=== PATIENT | male | born 1955 | race Caucasian/White ===

== ENCOUNTER → 2019-12-04 08:42 | Outpatient (CLI) | payer MEDICARE, SELFPAY ==
--- NOTE | 2019-12-04 08:48 | CDU_ITS ---
Reason For Study: dizziness Rt. Velocities/BP Lt. Velocities/BP Prox CCA 79.9/21.3 cm/sec. Prox CCA 85.0/19.0 cm/sec. Mid CCA 64.3/14.7 cm/sec. Mid CCA 56.4/15.7 cm/sec. Dist CCA 63.0/17.3 cm/sec. Dist CCA 62.9/19.0 cm/sec. Prox ICA 36.9/14.2 cm/sec. Prox ICA 32.2/11.6 cm/sec. Mid ICA 56.1/20.3 cm/sec. Mid ICA 50.7/20.1 cm/sec. Dist ICA 90.0/33.3 cm/sec. Dist ICA 72.7/25.6 cm/sec. Rt. ICA/CCA = 1.4. Lt. ICA/CCA = 1.3. Prox ECA 79.9/21.3 cm/sec. Prox ECA 97.1/16.8 cm/sec. Rt. Vert. 46.6/13.5 cm/sec. Lt. Vert. 52.6/22.1 cm/sec. Right Extracranial There is intimal thickening but no significant atherosclerotic plaque noted in the right common carotid artery. There is intimal thickening but no significant atherosclerotic plaque noted in the right internal carotid artery. There is intimal thickening but no significant atherosclerotic plaque noted in the right external carotid artery. Antegrade flow is noted in the right vertebral artery. Left Extracranial There is intimal thickening but no significant atherosclerotic plaque noted in the left common carotid artery. There is intimal thickening but no significant atherosclerotic plaque noted in the left internal carotid artery. There is intimal thickening but no significant atherosclerotic plaque noted in the left external carotid artery. Antegrade flow is noted in the left vertebral artery. Procedure Carotid Duplex 19814. The exam was diagnostic. Interpretation Summary No significant atherosclerotic plaque or stenosis noted in the internal carotid arteries bilaterally. Flow within the vertebral arteries is antegrade bilaterally. Ordering Physician: Tanvir Borrego Performed By: Davon Collins RVT
== END ==
PROVIDERS: Family Provider Family Medicine; PCP Family Medicine; Referring Provider Family Medicine; Visit Provider Family Medicine
DX: R42 Dizziness and giddiness (principal)
CPT/HCPCS: 93880

== ENCOUNTER 2023-01-10 11:42 | Observation (INO) | payer MEDICARE, OTHER, SELFPAY ==
--- NOTE | 2022-12-30 08:52 | EKG12_ITS ---
Test Reason : PRE OP Blood Pressure : / mmHG Vent. Rate : 070 BPM Atrial Rate : 070 BPM P-R Int : 190 ms QRS Dur : 094 ms QT Int : 392 ms P-R-T Axes : 028 -23 048 degrees QTc Int : 423 ms Sinus rhythm with Premature atrial complexes Septal infarct , age undetermined Abnormal ECG Confirmed by MEHUL ALVARADO, TONY ([id number]), avid editor ALOK CORONA ([id number]) on 12/31/2022 9:02:25 AM Referred By: Chuck Trejo Confirmed By:SHILPI CARVER MD
[2022-12-30 10:01] LABS: Absolute Lymphocyte Count 1.44 X10^3/uL (0.83-4.51); Absolute Neutrophil Count 4.3 X10^3/uL (2.0-7.7); Basophil# 0.03 X10^3/uL; Basophil% 0.5 % (0-1); Eosinophil# 0.28 X10^3/uL; Eosinophils% 4.2 % (0-5); Hematocrit 49.1 % (40-54); Hemoglobin 15.9 g/dL (13.0-16.5); Lymphocyte # 1.44 X10^3/ul (0.83-4.51); Lymphocyte % 21.7 % (19-41); Mean Corp Hgb Conc 32.4 g/dL (32-36); Mean Corpuscular Hgb 30.3 pg (27.0-32.0); Mean Corpuscular Volume 93.7 fL (80-94); Mean Platelet Vol. 8.8 fl (6.2-12.0); Monocyte# 0.62 X10^3/uL; Monocyte% 9.3 % (0-10); NRBC Flagged by Analyzer 0 % (0-5); Neutrophil # 4.25 X10^3/uL (2.7-7.7); Platelet Count 322 K/mm3 (150-450); RBC Distribution Width CV 13.2 % (11.6-14.6); RBC Distribution Width SD 45.9 fl (35.1-43.9); Red Blood Count 5.24 M/mm3 (4.6-6.2); White Blood Count 6.6 K/mm3 (4.4-11.0)
[2022-12-30 10:55] LABS: Anion Gap 9 (5-15); BUN 22 mg/dL (7-18); BUN/Creat Ratio 21.2 RATIO (10-20); Chloride 106 mmol/L (98-107); Creatinine, Serum 1.04 mg/dL (0.70-1.30); EST Glomerular Filtration Rate 75 mL/min (>60); Est Glom Filt Rate - Afr Amer 91 mL/min (>60); Glucose 148 mg/dL (74-106); Magnesium 2.3 mg/dL (1.6-2.6); PSA,Total - Annual Screen 3.36 ng/mL (0.00-4.00); Potassium 4.1 mmol/L (3.5-5.1); Sodium Level 140 mmol/L (136-145); Thyroid Stim Hormone (TSH) 2.23 uIU/mL (0.358-3.74)
[2022-12-30 10:59] LABS: HIV - WCH Non-Reactive (Nonreactive); Hepatitis B Surface Antibody Non-Reactive; Hepatitis C Antibody Non-Reactive (Nonreactive)
[2022-12-31 21:24] LABS: Hepatitis A AB, Total Negative (Negative)
--- NOTE | 2023-01-07 09:48 | PCM.HP.BLA ---
History and Physical Addendum MR#: [id number] Acct: [id number] Name:? CANDIS DOMÍNGUEZ Jr. Rep #: [id number] : 1955 ? ? Provider: Dr. Chuck Trejo DO Age/Sex:? 67/M ? ? Location: [facility] [place] Status: Signed Intake Vital Signs ? 11/10/1510:59 12/02/2307:28 Height 5 ft 5 in 5 ft 5 in Weight: ? 216 lb 6 oz BMI ? 36.0 Intake Visit Reasons:?LUMBER SPINE Is patient in pain?: Yes Pain scale (1-10): 10 Allergies No Known Allergies Allergy (Verified 12/02/22 08:28) Medications aspirin 81 mg tablet,delayed release (Adult Low Dose Aspirin) 81 mg PO DAILY 11/05/15 [History Confirmed 12/02/22] atorvastatin 10 mg tablet 20 mg PO QHS 11/05/15 [History Confirmed 12/02/22] acetaminophen 500 mg tablet (Tylenol Extra Strength) 500 mg PO Q6H PRN 12/02/22 [History Confirmed 12/02/22] amlodipine 5 mg tablet 5 mg PO DAILY 12/02/22 [History Confirmed 12/02/22] ibuprofen 400 mg tablet 400 mg PO Q8H 12/02/22 [History Confirmed 12/02/22] levothyroxine 200 mcg capsule 200 mcg PO DAILY 12/02/22 [History Confirmed 12/02/22] lisinopril 5 mg tablet 5 mg PO DAILY 12/02/22 [History Confirmed 12/02/22] omeprazole 40 mg capsule,delayed release 40 mg PO DAILY 12/02/22 [History Confirmed 12/02/22] PFSH Medical History?(Updated 12/02/22 @ 09:[address] Chuck Trejo DO) Melanoma Surgical History?(Updated 12/02/22 @ 08:48 by Wendy Torres) Hx of knee surgery Family History?(Updated 12/02/22 @ 08:49 by Wendy Torres) Father CVA (cerebral vascular accident)Other Arthritis Diabetes Social History Smoking Status:? Never smoker alcohol intake:? never HPI LUMBER SPINE Details: Parts of this documentation were recorded by a scribe, this documentation accurately reflects the service provided and the decisions made by me, Dr. Chuck Trejo DO 12/02/22 0825. CANDIS DOMÍNGUEZ is a 67 year old M here today for lower back pain that radiates down his left leg. Denies any known injury. States that he has been been dealing with the pain for 8-10 years that has progressively gotten worse. Denies any previous surgery on his back. States that morning are the worst for his pain. States that within the last month it has gotten worse and worse. Notes that there isn't anything specific that increases his pain but his pain is constant and sometimes it fades during the day but then comes right back. Pt. did bring an MRI disc with him as well today. Denies using ice or heat. States that he takes Ibuprofen and Tylenol for the pain which does help a little bit. Denies any previous injections in his back. Pt. has done PT which was 4 years ago which did help a little bit but doesn't help now and did some HEP with that as well which helped a little then but not now. Denies any bowel or bladder dysfunction. Mr. Domínguez is a pleasant gentleman who presents in the company of his daughter.? He has had the pain in the left quad for a long time however a month or so ago it started getting much much worse.? Now the pain has become intractable.? He denies any bowel or bladder dysfunction.? He denies history of unexplained weight loss night fever sweats or chills. On examination he can stand on his toes and he can stand on his heels with difficulty.? Forward bending increases the pain instead as does extension.? He has atrophy of the left quad as compared to the right.? The left patellar reflex is absent the right 1 is but barely perceptible.? He has weakness of the quads on the left as compared to the right.? He has no long tract signs.? Clonus is absent Babinski's are downgoing. I reviewed his MRI scan demonstrates that he has a very large L2-3 disc more to the left side that goes all the way down to nearly L3-4.? In addition he has smaller herniation all the way across at L3-4.? And he has yet another 1 at L1 to.? His main problem however is undoubtedly the large L2-3 herniation.? I suspect we will we will be able to ignore the other 2 as they are not a major problem.? He is obviously got degeneration throughout his lumbar spine with degenerative disc disease of every single level. Plain x-rays demonstrate that he has degenerative disc disease at every single level in his lumbar spine.? I also x-rayed his left hip which demonstrated only very mild degenerative changes.? We will schedule him for lumbar laminectomy L2-3 on the left side I will have to remove the top of the lamina of L3 also.? I will see him again at preop. Coding Level of Care Code Off vis,new,level 3 Diagnoses HNP (herniated nucleus pulposus), lumbar? M51.26 Time Spent (min) 35 Assessment and Plan Assessment and Plan (1) HNP (herniated nucleus pulposus), lumbar:
[2023-01-10] VITALS (14 sets, daily range): BP systolic 94–124; BP diastolic 48–79; PULSE 54–85; RESP 14–16; TEMP 35.5–37.2; O2SAT 90–97; BMI 35.6; BMI 37.6
[2023-01-10] MEDS: Lactated Ringers 1,000 ML 15 ML IV ×3 (06:24→11:30)
[2023-01-10] MEDS: Acetaminophen 500 MG Tablet 1000 MG PO (06:25)
[2023-01-10 06:26] LABS: Bedside Glucose 186 mg/dL (74-106)
--- NOTE | 2023-01-10 07:30 | DISC_PTH ---
PATIENT: CANDIS JIMENEZ Jr. LOC: MS3 U#:[id number] AGE/SX: 67/M ROOM: MO318 RE01/10/[address]: Dr. Chuck Trejo DO : 1955 BED: 1 DIS: 01/11/2023 SPEC #: [id number] RECD: 01/10/23 13:41 STATUS: SVETLANA REDc #: [id number] JULIO: 01/10/23 07:[address]: Chuck Trejo DEPT: SURGICAL PATHOLOGY RECD BY: Nina Valverde ENTERED: 01/11/23 08:34 SP TYPE: DISC OTHR DR: MD Dr. Alessandro Philip MD Tissues: Intervertebral disc, NOS Procedures: Surgery Specimen Level III HEADER OPERATION: ERAS, lumbar laminectomy L2-3 PRE-OP DIAGNOSIS: Herniated nucleus pulposus TISSUE SUBMITTED: L2-3 disc MICROSCOPIC DIAGNOSIS L2-3 disc, laminectomy: Pieces of fibrocartilaginous tissue with reactive changes. PEACE:lanie 01/12/2023 MICROSCOPIC DESCRIPTION Slides are reviewed. GROSS DESCRIPTION Received in fixative is one container labeled with the patient's name and designated L2-3 disc. The specimen consists of two irregular fragments of pink-lomeli soft tissue that in aggregate measure 1.0 x 0.3 x 0.2 cm. The specimen is totally submitted in one cassette. / AM:lanie 01/11/2023 TC:5 CPT: 30093
[2023-01-10] MEDS: Cefazolin 2 GM in 0.9% Normal Saline 100 ML IV (08:20)
[2023-01-10] MEDS: THROMBIN (RECOMBINANT) 20,000 UNIT VIAL 20000 UNIT TOPICAL (08:40)
--- NOTE | 2023-01-10 08:45 | RAD_ITS ---
STUDY: X-RAY - LUMBAR SPINE REASON FOR EXAM: Male, 67 years old. LAMINECTOMY L2-3, LEFT TECHNIQUE: 1 view(s) of the lumbar spine were obtained. COMPARISON: None FINDINGS: The localization instrument is seen overlying the L2-L3 disc space level. RAD/Spine 1 View Any Level IMPRESSION: The localization instrument is seen overlying the L2-L3 disc space level. Electronically Signed: Antonio Landrum MD at 10:05 EST ,
--- NOTE | 2023-01-10 11:52 | OP.PCM_ITS ---
Report of Operation Description of Surgical Findings:: Preoperative diagnosis: Herniated disc L2-3 with severe left L3 radiculopathy intractable pain neurological deficit Postoperative diagnosis: The same Procedure: Lumbar laminectomy discectomy L2-3 on the left Surgeon: Dr. Trejo Communications Strategist: Nhan GARCIA Anesthesia: General endotracheal by [facility] Estimated blood loss: Less than 50 cc Drains: None Complications: None Procedure: Patient was taken to the OR where he was placed under general endotr acheal anesthesia. A Nagel catheter was inserted. Neuro monitoring placed their leads on the patient. The patient was then placed in the prone position on the Kranthi frame. After appropriate positioning with care to protect his bony prominences his genitalia the brachial plexus bilaterally and the ulnar nerves of both elbows and the cervical spine and facial features the back was prepped and draped standard fashion I then made a longitudinal incision centered over what I thought would be L2-3. I then elevated the paravertebral muscles off the lamina of L2 and the lamina of L3 and took an intraoperative x-ray with a marker in place to confirm that we were indeed at L2-3. This was also confirmed by the radiologist. The paravertebrals were elevated at over the facet of L2-3 a Valery retractor was then put in place I then removed all the soft tissues off of the ligamentum flavum between the 2 and is L2 and L3 and release ligamentum flavum off the underside of the lamina of L2. The laminectomy was carried out with 45 degree Kerrison rongeurs. I then released the ligamentum flavum off the underside of the top of the L3 lamina as we would need to do that to get to the disc because the disc went so far down. The laminectomy was carried out with 45 degree Kerrison rongeurs I then remove the ligamentum flavum in retrograde fashion with a 45 degree Kerrison rongeurs and open the lateral recess by doing a medial facetectomy at the top of the L3 facet. I removed the medial portion of the L2 facet with an osteotome. Removed all ligamentum flavum that I could. Then began the long process of retracting the dura note that this disc herniation occurred about 5 years ago has had symptoms for that long. I knew that it would be difficult case and that he would have adhesions then as expected he had strong adhesions from the disc that was of ligamentous and note that the disc itself at L2-3 was quite calcified. I worked diligently for a very long time getting the adhesions to slowly release until I finally was able to observe the L3 nerve. I cut the posterior longitudinal ligament so that I could get to the disc and removed quite a few pieces of the disc material these were all small however but this did decompress the base of the nerve root. Use an osteotome to make a hole in the posterior calcified disc of L2-3 there was no more disc there to be had. Did find the disc space however. This finally decompressed the L3 nerve root. Checked with hockey-stick both anterior and posterior went out the foramen without any difficulty at all. Bleeding was controlled with bipolar cautery and thrombin- soaked Gelfoam repeatedly. Also in the course of the case we thoroughly irrigated every 10 to 50 minutes in the course of the case to prevent infection. We had excellent hemostasis by the end of the case we put our amnionic membrane directly over the dura to prevent adhesions in the future Gelfoam was placed over the top of that. I then closed the lumbar fascia using [id number] suture with #1 Vicryl followed by closure of subcutaneous tissues with 0 Vicryl and 2-0 Vicryl in layers in interrupted fashion and the skin was approximated using skin clips sterile dressing was then applied. The patient was then recovered in the OR moved to his hospital bed and taken to recovery in satisfactory condition. The end of operative summary on Oseas Dmoínguez. This is Dr. Trejo dictating.
--- NOTE | 2023-01-10 14:30 | PCM.HP.STD ---
HPI - General General Date of Admission: 01/10/23 Date of Service: 01/10/23 Chief Complaint: Post-op medical managment HPI Narrative CANDIS JIMENEZ, is a 67 M who presents PFSH Medical History Anxiety Arthritis Back pain Cancer CPAP (continuous positive airway pressure) dependence Depression Dietary restriction Gastric reflux High cholesterol History of irregular heartbeat History of pain when walking History of stress test Hypertension Leg cramps Melanoma Shortness of breath on exertion Sleep apnea Thyroid disease Wears glasses Home Medications atorvastatin 10 mg tablet 20 mg PO DAILY 11/05/15 [History Last Taken Unknown] acetaminophen 500 mg tablet (Tylenol Extra Strength) 500 mg PO Q6H PRN Pain 12/02/22 [History Last Taken Unknown] amlodipine 5 mg tablet 5 mg PO DAILY 12/02/22 [History Last Taken 01/10/23] ibuprofen 400 mg tablet 400 mg PO Q6H 12/02/22 [History Last Taken Unknown] levothyroxine 200 mcg capsule 400 mcg PO SA 12/02/22 [History Last Taken Unknown] lisinopril 5 mg tablet 5 mg PO DAILY 12/02/22 [History Last Taken Unknown] omeprazole 40 mg capsule,delayed release 40 mg PO DAILY 12/02/22 [History Last Taken Unknown] Allergy/AdvReac Type Severity Reaction Status Date / Time No Known Allergies Allergy Verified 01/10/23 05:57 Family History Father CVA (cerebral vascular accident) Other Arthritis Diabetes Surgical History Hx of knee surgery Hx of ventral hernia repair Social History Smoking Status: Never smoker alcohol intake: never Vital Signs Vital Signs Vital Signs: 01/10/23 06:00 01/10/23 06:00 01/10/23 11:49 Temperature 99.0 F 96 F L Temperature Source Temporal Temporal Pulse Rate 54 L 54 L Pulse Strength Respiratory Rate 16 16 Respiratory Pattern Normal Normal Blood Pressure 121/64 H 96/65 Blood Pressure Mean 83 75 Blood Pressure Source Monitor Monitor Blood Pressure Position Left Lateral Semi-Fowlers Blood Pressure Location Right Arm Left Forearm Baseline BP 121/64 Pulse Ox 92 95 Oxygen Delivery Method Room Air Nasal Cannula Oxygen Flow Rate (L/min) 4 01/10/23 12:00 01/10/23 12:15 01/10/23 12:30 Temperature Temperature Source Pulse Rate 55 L 56 L 54 L Pulse Strength Respiratory Rate 16 16 16 Respiratory Pattern Blood Pressure 94/48 L 108/78 102/72 Blood Pressure Mean 63 88 82 Blood Pressure Source Monitor Monitor Monitor Blood Pressure Position Semi-Fowlers Semi-Fowlers Semi-Fowlers Blood Pressure Location Left Arm Left Arm Left Arm Baseline BP 121/64 121/64 121/64 Pulse Ox 95 93 93 Oxygen Delivery Method Nasal Cannula Nasal Cannula Nasal Cannula Oxygen Flow Rate (L/min) 4 4 4 01/10/23 12:45 01/10/23 13:00 01/10/23 13:06 Temperature Temperature Source Pulse Rate 58 L 59 L Pulse Strength Normal (2+) Respiratory Rate 16 16 Respiratory Pattern Blood Pressure 113/79 105/71 Blood Pressure Mean 90 82 Blood Pressure Source Monitor Monitor Blood Pressure Position Semi-Fowlers Semi-Fowlers Blood Pressure Location Left Arm Left Arm Baseline BP 121/64 121/64 Pulse Ox 93 92 Oxygen Delivery Method Nasal Cannula Nasal Cannula Oxygen Flow Rate (L/min) 4 4 01/10/23 13:15 01/10/23 13:30 01/10/23 13:45 Temperature 96.9 F L Temperature Source Temporal Pulse Rate 61 59 L 61 Pulse Strength Respiratory Rate 16 16 16 Respiratory Pattern Blood Pressure 99/65 99/65 107/68 Blood Pressure Mean 76 76 81 Blood Pressure Source Monitor Monitor Monitor Blood Pressure Position Semi-Fowlers Semi-Fowlers Semi-Fowlers Blood Pressure Location Left Arm Left Arm Left Arm Baseline BP 121/64 121/64 121/64 Pulse Ox 92 91 93 Oxygen Delivery Method Simple Mask Simple Mask Simple Mask Oxygen Flow Rate (L/min) 6 6 6 Weight Weight: 97 kg Body Mass Index (BMI) 35.6 Results Lab / Micro Data Result Diagrams: 12/30/22 09:02 12/30/22 09:02 Labs: Laboratory Results - last 24 hr 01/10/23 06:04: POC Glucose 186 H Radiology Impression Spine X-Ray 01/10/23 08:45 IMPRESSION: The localization instrument is seen overlying the L2-L3 disc space level. Electronically Signed: Antonio Landrum MD at 10:05 EST , Assessment & Plan Assessment/Plan PLAN: Plan 1. POD #0 2. Hypertension 3. Hyperlipidemia 4. Hypothyroidism 5. GERD, continue on PPI Charges/Coding Visit Charges Inpatient E&M: 01112 Init Hosp L3
--- NOTE | 2023-01-10 15:04 | PN.HOSP_ITS ---
Reason for Visit Reason for Visit: Diagnoses Encounter for other preprocedural examination (01/10/23) Subjective Subjective Consult for postop medical management: 67-year-old male with past medical history of STEVE, hypertension, hyperlipidemia, GERD, hypothyroidism who comes in for elective left lumbar laminectomy/discectomy L2-L3. He has been complaining of lumbar radiculopathy ongoing for 8 to 10 years. Conservative treatment with ibuprofen/Tylenol and physical therapy was not helping. Patient was seen in the immediate postop. He is on 6 L of oxygen. His oxygen sats were staying around 89 to 90%. He denied any use of home oxygen. Denied any chest pain or dizziness or palpitations or fever or chills. Objective Data Objective Data Vital Signs: Vital Signs Temp Pulse Resp BP Pulse Ox O2 Del Method O2 Flow Rate 98.2 F 57 L 16 122/79 H 90 Nasal Cannula 4 01/10/23 14:41 01/10/23 14:41 01/10/23 14:41 01/10/23 14:41 01/10/23 14:41 01/10/23 14:41 01/10/23 14:41 Oxygen Flow Rate (L/min) 4 Oxygen Delivery Method Nasal Cannula Weight: 102.603 kg Body Mass Index (BMI) 37.6 Intake & Output: Intake and Output for Last 24 Hours 01/08/23 01/09/23 01/10/23 23:59 23:59 23:59 Intake Total 2110 / 2110 Output Total 250 / 250 Balance 1860 / 1860 Lab / Micro Data Result Diagrams: 12/30/22 09:02 12/30/22 09:02 Labs: Laboratory Results - last 24 hr 01/10/23 06:04: POC Glucose 186 H Micro: Microbiology 12/30/22 09:02 Swab (Method) Nasal Screen MRSA/MSSA - Final Radiography Diagnostic Testing: Radiology Impression Spine X-Ray 01/10/23 08:45 IMPRESSION: The localization instrument is seen overlying the L2-L3 disc space level. Electronically Signed: Antonio Landrum MD at 10:05 EST , Physical Exam Narrative General: Alert, Oriented x3, Cooperative, on 4 L of oxygen HEENT: Atraumatic, PERRLA, EOMI, Normocephalic Oral: Moist Mucosa Neck: Supple Lungs: Normal air movement, Diminished Cardiovascular: Regular rate, Regular Rhythm, Normal S1, Normal S2, No murmurs Abdomen: Bowel Sounds Present, Soft, Non Tender, Non-Distended, No Hepato- splenomegaly Extremities: No edema Skin: No rashes Neurological: Cranial nerves II-XII grossly intact, Neuro grossly intact Psych/Mental Status: Normal Affect, Appropriate pleasant Assessment & Plan Assessment/Plan (1) Hypoxia: PLAN: Plan 1.POD #0 status post left L2 to?L3 laminectomy, Patient's pain is fairly controlled, continue current pain management PT/OT to evaluate and treat 2. Acute hypoxia likely related to atelectasis Patient is currently on 4 L of oxygen Continue to encourage use of incentive spirometer 3. Hypertension, controlled, continue on amlodipine, lisinopril 4. Hyperlipidemia, continue atorvastatin 5. Hypothyroidism, continue on synthroid 6. DVT prophylaxis?orthopedic surgery per orthopedic surgery -SCDs Charges/Coding Visit Charges Office Visits / Consults: 30684 OP Consult L5
[2023-01-10] MEDS: Cefazolin 1 GM/50 ML BAG IV (16:35)
--- NOTE | 2023-01-10 20:10 | CPS ---
home CPAP with 4Lpm bleed in
[2023-01-10] MEDS: Lactated Ringers 1,000 ML 100 ML IV (20:12)
[2023-01-10] MEDS: Atorvastatin Calcium 20 MG Tablet PO (20:12)
[2023-01-11] VITALS (8 sets, daily range): BP systolic 107–135; BP diastolic 51–87; PULSE 60–77; RESP 15–18; TEMP 36.7–37.1; O2SAT 93–97
[2023-01-11] MEDS: Cefazolin 1 GM/50 ML BAG IV (00:37)
[2023-01-11] MEDS: Lactated Ringers 1,000 ML 100 ML IV (05:32)
[2023-01-11] MEDS: 0.9% Saline Lock 10 ML Syringe IV (05:36)
[2023-01-11] MEDS: Morphine 4 MG/ML Syringe IV (05:36)
--- NOTE | 2023-01-11 08:46 | PCM.PN.HOSP ---
Reason for Visit Reason for Visit: Diagnoses Hypoxemia (01/10/23) Encounter for other preprocedural examination (01/10/23) Subjective Subjective Follow-up for lumbar laminectomy. Objective Data Objective Data Vital Signs: Vital Signs Temp Pulse Resp BP Pulse Ox O2 Del Method O2 Flow Rate 98.8 F 66 15 131/87 H 96 Nasal Cannula 3 01/11/23 06:20 01/11/23 06:20 01/11/23 06:20 01/11/23 06:20 01/11/23 07:01 01/11/23 07:01 01/11/23 07:01 Oxygen Flow Rate (L/min) 3 Oxygen Delivery Method Nasal Cannula Weight: 226 lb 3.2 oz Body Mass Index (BMI) 37.6 Intake & Output: Intake and Output for Last 24 Hours 01/09/23 01/10/23 01/11/23 23:59 23:59 23:59 Intake Total 2837 / 3437 2128.34 / 2128.34 Output Total 550 / 1400 1650 / 1650 Balance 2287 / 2037 478.34 / 478.34 Lab / Micro Data Result Diagrams: 12/30/22 09:02 12/30/22 09:02 Micro: Microbiology 12/30/22 09:02 Swab (Method) Nasal Screen MRSA/MSSA - Final Radiography Diagnostic Testing: Radiology Impression Spine X-Ray 01/10/23 08:45 IMPRESSION: The localization instrument is seen overlying the L2-L3 disc space level. Electronically Signed: Antonio Landrum MD at 10:05 EST , Physical Exam Narrative Seen and examined. Patient states does not have lumbar back pain. His lower back pain, numbness and leg pain has resolved. He feels very happy. Patient walking along the hallway. Physical exam General: Alert, Oriented x3, Cooperative HEENT: Atraumatic, PERRLA, EOMI, Normocephalic Oral: Oral mucosa moist. No Gingival or Mucosal Lesions/ Ulcerations Neck: Supple, No JVD, Negative Carotid Bruits Lungs: Air entry diminished in bilateral lung bases. No crepitation/rhonchi Cardiovascular: Regular rate, Regular Rhythm, Normal S1, Normal S2, No murmurs Abdomen: Bowel Sounds Present, Soft, Non Tender, Non-Distended : No renal angle tenderness. No suprapubic tenderness. Extremities: No edema, Capillary Refill Less than 3 Seconds Skin: No rashes, No breakdown Musculoskeletal/spine: Surgical dressing dry over lumbar spine. No drain. No acute tenderness or swelling/hematoma. ROM acceptable at lumbar spine, patient sitting up. Neurological: Cranial nerves II-XII grossly intact, DTR 2+/4 and Symmetrical, Neuro grossly intact Psych/Mental Status: Normal Affect, Appropriate. Assessment & Plan Assessment/Plan (1) Hypoxia: PLAN: Plan This is a 14-year-old gentleman admitted for elective lumbar laminectomy surgery. 1. Herniated disc L2-3 with severe left L3 radiculopathy complicated with intractable radicular pain and neurological deficit with numbness: Postop day 1. Patient had lumbar laminectomy and discectomy L2-3 on the left on 01/10/2023. Discussed with Dr. Trejo. Patient is comfortable standing up and walking along the hallway. Patient is getting discharged. Pain is well controlled. Patient has follow-up with Dr. Trejo. 2. Acute hypoxia likely related to atelectasis: Resolved. Patient was on 4 L of oxygen. No hypoxia or tachypnea. No pneumonia. Encouraged to continue incentive spirometry. 3. Hypertension, controlled, continue on amlodipine, lisinopril 4. Hyperlipidemia, continue atorvastatin 5. Hypothyroidism, continue on synthroid 6. DVT prophylaxis?orthopedic surgery per orthopedic surgery -SCDs Hospitalist team will sign off. Charges/Coding Visit Charges Inpatient E&M: 96895 Subs Hosp L2
--- NOTE | 2023-01-11 09:50 | CASEMGMT ---
LAUREN MANZO DC Planning Assessment: Face to face for initial transition planing and care coordination. Pt alert, sitting up in chair, and oriented x4. LAUREN MANZO introduced self and role at [facility], pt expressed understanding and is agreeable to participating in assessment. Care providers, pharmacy, and demographics verified. Admitting Dx: Lumbar Laminectomy PCP: [facility] Specialists: Neil Rudolph Pharmacy: [facility] retail Insurance: MCR A/B and a supplement with prescription coverage Living Will/HPOA: yes, yes-HPOA LNOK: -Hanna Living Arrangements: Pt lives with his , daughter, DONA, and grandkids in a three story home with a first floor set-up with two steps to enter. Pt states he is independent with all ADLs and family is able to assist him if needed. [place] and assists with the animal care. Transportation: pt drives and family is able to assist as needed DME: walker available HHC/SNF: denies any previous Plan: return home with the support of his . Pt denies any discharge needs or concerns at this time and states he is feeling a lot better than prior to surgery with his pain relieved. Will continue to follow and assist with any dc needs as identified. Rut Marcum RN CM
[2023-01-11] MEDS: Pantoprazole Sodium 40 MG Tablet PO (11:27)
[2023-01-11] MEDS: amLODIPine 5 MG Tablet PO (11:27)
[2023-01-11] MEDS: Lisinopril 5 MG Tablet PO (11:27)
[2023-01-11] MEDS: oxyCODONE 5 MG Tablet PO (11:29)
--- NOTE | 2023-01-11 13:32 | DCINST_ITS ---
Discharge Instructions Activity May shower in (days): 5 May resume sexual activity in: 4-6 weeks Weight Bearing Status: Full weight bearing Lifting Restrictions: 15# Follow Up Care Test Results: Test results from this visit will be discussed in further detail at your follow- up appointment, if applicable. Discharge Plan Admission Admit Date/Time: 01/10/23 11:42 Primary Reason for Your Visit: back surgery Attending Provider: Chuck Trejo Primary Care Provider: Tanvir Borrego Consulting Providers: Alessandro Caceres Discharge Orders/Prescriptions Prescriptions: No Action omeprazole 40 mg capsule,delayed release(DR/EC) 40 mg PO DAILY amlodipine 5 mg tablet 5 mg PO DAILY lisinopril 5 mg tablet 5 mg PO DAILY levothyroxine 200 mcg capsule 400 mcg PO SA ibuprofen 400 mg tablet 400 mg PO Q6H acetaminophen [Tylenol Extra Strength] 500 mg tablet 500 mg PO Q6H PRN (Reason: Pain) atorvastatin 10 MG tablet 20 mg PO DAILY Referrals / Follow Up: Tanvir Borrego MD [Primary Care Provider] - Disposition Disposition (needs filled in before D/C Order can be placed): Home, Self Care
--- NOTE | 2023-01-11 13:34 | PCM.DC.SUM ---
Providers Date of Admission: 01/10/23 Primary Care Physician: Dr. Tanvir Borrego MD Attending Physician: Postop day #1. Patient is doing quite well. He has been walking the halls with his walker although he states he does not really needed. His left thigh pain is completely gone. He is extremely pleased about that. Neurologically he is intact in both lower extremities. His dressing is dry. He was given postop protocol regarding his activities. He was told that in 4 days the dressing can be removed in 5 days he can start showering. He was in the company of his when I told him this. Protocol of course calls for him to be able to urinate prior to his discharge. I will give him oxycodone 5/325 for pain. He already has an appointment to see him in the office in a couple of weeks. This is the end of discharge summary on Oseas Domínguez. This is Dr. Trejo dictating. Consultations 01/10/23 12:12 Consult: Hospitalist Routine Consulting Provider: Vanessa Reoblledo Reason for Consult: Medical Management EMERGENT Consult: No MD Notified: Yes Date Notified: 01/10/23 Time Notified: 14:28 Method of Notification: Text Reason For Visit: LAMINECTOMY, LUMBAR, L2-3 LEFT Diagnosis Discharge Diagnosis (1) Hypoxia: Status: Acute Code(s): R09.02 - Hypoxemia Medications at Discharge Home Medications atorvastatin 10 mg tablet 20 mg PO DAILY 11/05/15 acetaminophen 500 mg tablet (Tylenol Extra Strength) 500 mg PO Q6H PRN Pain 12/02/22 amlodipine 5 mg tablet 5 mg PO DAILY 12/02/22 ibuprofen 400 mg tablet 400 mg PO Q6H 12/02/22 levothyroxine 200 mcg capsule 400 mcg PO SA 12/02/22 lisinopril 5 mg tablet 5 mg PO DAILY 12/02/22 omeprazole 40 mg capsule,delayed release 40 mg PO DAILY 12/02/22 Weight / BMI Weight Weight: 226 lb 3.2 oz Body Mass Index (BMI) 37.6 ABG / Lab / Microbiology Data Result Diagrams: 12/30/22 09:02 12/30/22 09:02 Microbiology: Microbiology 12/30/22 09:02 Swab (Method) Nasal Screen MRSA/MSSA - Final D/C Instructions May shower in (days): 5 May resume sexual activity in: 4-6 weeks Weight Bearing Status: Full weight bearing Meaningful Use Info Meaningful Use Diagnoses (Choose all that apply): None applicable Discharge Plan Admission Admit Date/Time: 01/10/23 11:42 Primary Reason for Your Visit: back surgery Attending Provider: Chuck Trejo Primary Care Provider: Tanvir Borrego Consulting Providers: Alessandro Caceres Discharge Orders/Prescriptions Prescriptions: No Action omeprazole 40 mg capsule,delayed release(DR/EC) 40 mg PO DAILY amlodipine 5 mg tablet 5 mg PO DAILY lisinopril 5 mg tablet 5 mg PO DAILY levothyroxine 200 mcg capsule 400 mcg PO SA ibuprofen 400 mg tablet 400 mg PO Q6H acetaminophen [Tylenol Extra Strength] 500 mg tablet 500 mg PO Q6H PRN (Reason: Pain) atorvastatin 10 MG tablet 20 mg PO DAILY Referrals / Follow Up: Tanvir Borrego MD [Primary Care Provider] - Disposition Disposition (needs filled in before D/C Order can be placed): Home, Self Care
--- NOTE | 2023-01-11 13:43 | CASEMGMT ---
LAUREN MANZO NOTE: Intro role of CM to patient and [facility] form explained re: Observation status for treatment of lumbar laminectomy.? Explained hospitalization will be paid per?his insurance policy for Outpatient billing?and condition will continue to be evaluated for Inpt necessity. Also let pt know that [facility] sends paper in the billing packet with their phone number if questions arise. Discussed Pharmacy section of [facility] form and self administered medication guideline.? Pt verbalizes understanding and does not have further questions. ?Form signed, copy made and placed in chart, and original given to pt. Rin SQUIRES RN CM
== END 2023-01-11 14:56 | disposition home or self-care (01) ==
LOC: MS3 17:52 → SDC 01-11 09:41
PROVIDERS: Admitting Provider Orthopaedic Surgery; PCP Family Medicine; Referring Provider Orthopaedic Surgery; Visit Provider Orthopaedic Surgery
PROC: (CPT 63030; principal; 2023-01-10 07:00)
DX: M51.16 Intervertebral disc disorders with radiculopathy, lumbar region (principal); I10 Essential (primary) hypertension; E78.00 Pure hypercholesterolemia, unspecified; E03.9 Hypothyroidism, unspecified; R09.02 Hypoxemia; G47.33 Obstructive sleep apnea (adult) (pediatric); Z79.899 Other long term (current) drug therapy; Z79.890 Hormone replacement therapy; Z79.82 Long term (current) use of aspirin; K21.9 Gastro-esophageal reflux disease without esophagitis; Z85.820 Personal history of malignant melanoma of skin; I49.1 Atrial premature depolarization; R94.31 Abnormal electrocardiogram [ECG] [EKG]
CPT/HCPCS: 63030; 00630; 72020; 80048; 82962; 83735; 84153; 84443; 85025; 86703; 86706; 86708; 86803; 87081; 88304; 93005; 94668; 94762; 96361; 96365; 96366; 96375; 97162; 99221; 99252; J7120; A4216; G0103; G0378; G0463; J2405

== ENCOUNTER → 2023-01-18 | Outpatient (CLI) | payer MEDICARE, OTHER, SELFPAY ==
--- NOTE | 2023-01-18 14:30 | VDLE_ITS ---
Reason For Study: pain RIGHT LEFT CFV is compressible, spontaneous, phasic, GSV is normal. competent and demonstrates normal CFV is compressible, spontaneous, phasic, augmentation. competent, and demonstrates normal Procedure augmentation. This is a venous duplex using B-mode, color FV is compressible, spontaneous, phasic, flow and spectral Doppler. competent and demonstrates normal Exam performed in department. augmentation. The exam was abbreviated due to the COVID 19 POP V is compressible, spontaneous, phasic, protocol. competent and demonstrates normal The exam was diagnostic. augmentation. A preliminary report was called and/or faxed LT PerV is compressible. to Dr. Borrego. T/P Trunk, PTV, and Gastroc V are dilated and noncompressible. VL/Venous Duplex US, Unilateral Interpretation Summary Acute deep vein thrombosis is noted in the left tibio-peroneal trunk. Acute yessi p vein thrombosis is noted in the left posterior tibial vein. Acute deep vein thrombosis is noted in the left gastrocnemius vein. The remainder of the left lower extremity deep venous syste m is patent and compressible. Valvular competence appears intact within the proximal deep venou s system on the left . The left great saphenous vein appears patent and compressible segmentall y. Ordering Physician: Tanvir Borrego Performed By: Davon Collins RVT
== END | disposition home or self-care (01) ==
LOC: CVS 14:25
PROVIDERS: PCP Family Medicine; Visit Provider Family Medicine
DX: M79.605 Pain in left leg (principal)
CPT/HCPCS: 93971

== ENCOUNTER → 2024-01-26 | Outpatient (CLI) | payer MEDICARE, OTHER, SELFPAY ==
--- NOTE | 2024-01-26 10:53 | RAD_ITS ---
STUDY: X-RAY - RIGHT KNEE REASON FOR EXAM: Male, 68 years old. OA TECHNIQUE: 3 views of the right knee. COMPARISON: None. FINDINGS: Normal visualized distal femur. Normal visualized proximal tibia and fibula. Normal proximal tibiofibular articulation. There is no demonstrated fracture. There is moderate degenerative arthrosis of the medial femorotibial compartment with moderate joint space narrowing. There is mild degenerative arthrosis of the lateral femorotibial compartment. There is mild degenerative arthrosis of the patellofemoral articulation. There is a small knee joint effusion. The soft tissue structures are unremarkable. RAD/Knee 3 Views IMPRESSION: Tricompartment degenerative arthrosis, most pronounced in the medial femorotibial compartment. Small knee joint effusion. No demonstrated fracture. Electronically Signed: Octaviano Cassidy MD at 13:03 EST ,
--- NOTE | 2024-01-26 10:58 | RAD_ITS ---
STUDY: X-RAY - LEFT KNEE REASON FOR EXAM: Male, 68 years old. OA TECHNIQUE: 3 views of the left knee. COMPARISON: None. FINDINGS: Normal visualized distal femur. Normal visualized proximal tibia and fibula. Normal proximal tibiofibular articulation. There is no demonstrated fracture. There is severe degenerative arthrosis of the medial femorotibial compartment with severe joint space narrowing. There is mild degenerative arthrosis of the lateral femorotibial compartment. There is mild degenerative arthrosis of the patellofemoral articulation. There is a tiny joint effusion. The soft tissue structures are unremarkable. RAD/Knee 3 Views IMPRESSION: Tricompartment degenerative arthrosis, most severe in the medial femorotibial compartment. Tiny joint effusion. Electronically Signed: Octaviano Cassidy MD at 13:05 EST ,
[2024-01-26 11:42] LABS: Absolute Lymphocyte Count 1.33 X10^3/uL (0.83-4.51); Absolute Neutrophil Count 3.4 X10^3/uL (2.0-7.7); Basophil# 0.03 X10^3/uL; Basophil% 0.5 % (0-1); Eosinophil# 0.22 X10^3/uL; Eosinophils% 3.8 % (0-5); Hematocrit 48.7 % (40-54); Hemoglobin 16.2 g/dL (13.0-16.5); Lymphocyte # 1.33 X10^3/ul (0.83-4.51); Mean Corp Hgb Conc 33.3 g/dL (32-36); Mean Corpuscular Hgb 30.3 pg (27.0-32.0); Monocyte# 0.77 X10^3/uL; Monocyte% 13.3 % (0-10); NRBC Flagged by Analyzer 0 % (0-5); Neutrophil # 3.42 X10^3/uL (2.7-7.7); Neutrophil % 59.2 % (47-70); Platelet Count 260 K/mm3 (150-450); RBC Distribution Width CV 13.3 % (11.6-14.6); RBC Distribution Width SD 45.1 fl (35.1-43.9); Red Blood Count 5.35 M/mm3 (4.6-6.2); White Blood Count 5.8 K/mm3 (4.4-11.0)
[2024-01-26 12:11] LABS: AST(SGOT) 21 U/L (15-37); Alanine Aminotransfer ALT/SGPT 26 U/L (16-61); Albumin, Serum 3.6 g/dL (3.2-5.0); Alkaline Phosphatase 102 U/L (45-117); Anion Gap 3 (5-15); BUN 18 mg/dL (7-18); BUN/Creat Ratio 20.3 RATIO (10-20); Calcium,Total 8.8 mg/dL (8.5-10.1); Chloride 113 mmol/L (98-107); Cholesterol 151 mg/dL (200); Creatinine, Serum 0.89 mg/dL (0.70-1.30); EST Glomerular Filtration Rate 90 mL/min (>60); Est Glom Filt Rate - Afr Amer 109 mL/min (>60); Globulin 3.7 g/dL (2.2-4.2); Glucose 102 mg/dL (74-106); High Density Lipoprotein 38 mg/dL; PSA,Total - Annual Screen 3.66 ng/mL (0.00-4.00); Potassium 3.9 mmol/L (3.5-5.1); Protein, Total 7.3 g/dL (6.4-8.2); Sodium Level 141 mmol/L (136-145); Thyroid Stim Hormone (TSH) 2.44 uIU/mL (0.358-3.74); Triglycerides 103 mg/dL; Very Low Density Lipoprotein 21 mg/dL (5-40)
[2024-01-26 12:39] LABS: Hepatitis C Antibody Non-Reactive (Nonreactive)
--- OUTSIDE RECORDS SUMMARY | 2024-01-26 12:51 | XMS RPT_ITS | CCD ---
Author Name Unknown Address [address] [place] [address] Organization [facility] Care Team Providers Care Prenatal Teacher Name Role Phone Unavailable Unavailable Unavailable LEELA BETTS Unavailable Unavail able GINGER HAWKINS. Unavailable Unavailable Ginger Hawkins Unavailable Unavailable Ginger Hawkins Unavailable Unavailable MARTHA DISLA II Unavailable Ginger Lan Admitting Unavailable Ginger Hawkins Attending Unavailable Ginger Hawkins Primary Care Unavailable Unavailable Primary Care Provider Unavailcomfort Hawkins, Dr. Ginger Ureña Attending Unavaila Dr. Ginger Agosto Primary Care Unavaila GINGER Agosto Primary Care Unavailable GINGER HAWKINS Referring GINGER Cabrera Attending GINGER Cabrera Primary Care Unavailable Allergies Allergy Classification Reported Allergen(s) Allergy Type Date of Onset Reaction(s) Facility (1 source) Seasonal allergy; Translations: [SEASONAL ALLERGIES] Propensity to adverse reactions (disorder) 6 AOF [facility] Repository Problems Problem Classification Problem Date Documented Da te Episodic/Chronic Blindness and vision defects (1 source) Presbyopia; Translations: [Presbyopia] Onset: 05-23-2018 Episodic Other nervous system disorders (2 sources) Other chronic pain; Translations: [Other chronic pain] Onset: 11-23-2022 Chronic Other non-traumatic joint disorders (1 source) Pain in left hip; Translations: [Pain in left hip] Onset: 11-08-2022 Episodic Spondylosis; intervertebral disc disorders; other back problems (1 source) Spondylosis without myelopathy or radiculopathy, lumbosacral region; Translations: [Spondyls w/o myelopathy or radiculopathy, lumbosacr region] Onset: 11-08-2022 Chronic Spondylosis; intervertebral disc disorders; other back problems (5 sources) Lumbago with sciatica, left side; Translations: [Lumbago with sciatica, right side] Onset: 11-08-2022 Episodic Results Test Name Value Interpretation Reference Range Facil ity Encounters Encounter Date Encounter Type Care Provider Facility Start: 11-23-2022 ambulatory GINGER HAWKINS Facilit y:[facility] Start: 11-18-2022 ambulatory GINGER HAWKINS Facilit y:[facility] Start: 11-08-[address] Ginger Hawkins Facility:[id number] Start: 01-05-2021 End: 01-05-2021 Orders Only Latha Jessica Nicholas Work Phone: [facility] Start: 11-02-2018 End: 01-16-2019 Patient encounter procedure Ginger Hawkins Facility:[facility] Start: 05-23-2018 End: 05-24-2018 Ambulatory MRATHA DISLA II [facility] Start: 03-07-2018 End: 03-08-2018 Ambulatory LEELA BETTS Facility:[facility] Start: 01-12-2018 Ambulatory Ginger Hawkins Facilit y:[place] Start: 01-12-2018 End: 01-12-2018 Ambulatory Ginger Hawkins Work Phone: [facility] Payers Date Payer Category Payer Medicare [id number] 2018 Unknown 2018 Medicare 2014 Unknown [id number] 1955 Unknown [id number] 1955 Unknown [id number] 1955 Unknown [id number] 1955 Unknown [id number] Unknown [id number] Unknown [id number] Social History Date Type Detail Facility [facility]: 01-13-2018 [facility] Work Phone: Sex Assigned At Not on file [facility] Work Phone: Summary Purpose Family History No Family History Records FoundNo Family History Records FoundNo Family History Records FoundNo Family History Records FoundNo Family History Records FoundNo Family History Records Found Advance Directives No Advanced Directives Records FoundNo Advanced Directives Records FoundNo Advanced Directives Records FoundNo Advanced Directives Records FoundNo Advanced Directives Records FoundNo Advanced Directives Records Found Additional Source Comments (unrecognized sect ion and content) No Status Records FoundNo Status Records FoundNo Status Records FoundNo Status Records FoundNo Status Records FoundNo Status Records Found INFORMATION SOURCE (unrecogn ized section and content) DATE CREATED AUTHOR AUTHOR'S ORGANIZ ATION 05/19/2018 [facility] DATE CREATED AUTHOR AUTHOR'S ORGANIZ ATION 05/24/2018 [facility] DATE CREATED AUTHOR AUTHOR'S ORGANIZ ATION 01/16/2019 [facility] DATE CREATED AUTHOR AUTHOR'S ORGANIZ ATION 11/17/2022 [facility] DATE CREATED AUTHOR AUTHOR'S ORGANIZ ATION 11/24/2022 [facility] FOR RECORDS PERTAINING TO PATIENTS WHO ARE OR HAVE BEEN ENROLLED IN A CHEMICAL DEPENDENCY/SUBSTANCEABUSE PROGRAM, SOME INFORMATION MAY BE OMITTED. This clinical summary was aggregated from multiple sources. Caution should be exercised in using it in the provision of clinical care. This summary normalizes information from multiple sources, and as a consequence, information in this document may materially change the coding, format and clinical context of patient data. In addition, data may be omitted in some cases. CLINICAL DECISIONS SHOULD BE BASED ON THE PRIMARY CLINICAL RECORDS. [employer] provides no warranty or guarantee of the accuracy or completeness of information in this document.
== END | disposition home or self-care (01) ==
PROVIDERS: PCP Family Medicine Geriatric Medicine; Referring Provider Family Medicine Geriatric Medicine; Visit Provider Family Medicine Geriatric Medicine
DX: M17.0 Bilateral primary osteoarthritis of knee (principal); E03.9 Hypothyroidism, unspecified; E78.5 Hyperlipidemia, unspecified; Z13.89 Encounter for screening for other disorder; Z12.5 Encounter for screening for malignant neoplasm of prostate
CPT/HCPCS: 36415; 73562; 80053; 80061; 84153; 84443; 85025; 86803; G0103

== ENCOUNTER → 2024-03-16 | Outpatient (CLI) | payer MEDICARE, OTHER, SELFPAY ==
--- NOTE | 2024-03-16 06:40 | MRI_ITS ---
HISTORY: L HEARING LOSS, PAIN WHEN LOUD NOISES TECHNIQUE: Multiplanar and multisequence MR images of the brain and internal auditory canals were obtained before and after the intravenous administration of 19 cc Jennifer scan. 424 images. COMPARISON: None. FINDINGS: BRAIN PARENCHYMA: Faint focus of restricted diffusion in the right posterior parietal lobe. Chronic lacunar infarct in the right cerebellum. Very mild chronic white matter changes. No acute intracranial hemorrhage identified. No enhancing mass. INTERNAL AUDITORY CANALS: No cerebellopontine angle mass. Symmetric appearance of the bilateral fifth, seventh, and 8th cranial nerve complexes. Patent internal auditory canals without enhancing mass. CSF SPACES: Cerebral ventricles, cortical sulci, and other extra-axial CSF spaces within normal limits in size for age. No midline shift or other significant mass effect. No extra-axial fluid collection. VASCULAR SYSTEM: Normal flow voids in the major intracranial circulation. PARANASAL SINUSES AND MASTOID AIR CELLS: Small maxillary sinus mucous retention cysts. No significant air fluid levels in the mastoid air cells. ORBITS: Unremarkable. MRI/Brain W/WO Contrast IMPRESSION: Faint small focus of restricted diffusion in the right posterior parietal lobe, which may represent subacute lacunar infarct. Chronic lacunar infarct in the right cerebellum. Unremarkable MRI of the internal auditory canals. No evidence for enhancing intracranial mass. Electronically Signed: Amanda Kruger MD at 8:12 EDT ,
[2024-03-16 07:07] LABS: CREATININE FINGERSTICK 1.4 mg/dL (0.70-1.30)
== END | disposition home or self-care (01) ==
LOC: MRI 06:30
PROVIDERS: PCP Family Medicine Geriatric Medicine; Referring Provider Otolaryngology; Visit Provider Otolaryngology
DX: H93.12 Tinnitus, left ear (principal); H90.3 Sensorineural hearing loss, bilateral
CPT/HCPCS: 70553; A9575

== ENCOUNTER → 2024-07-27 | Outpatient (CLI) | payer MEDICARE, OTHER, SELFPAY ==
--- NOTE | 2024-07-27 10:12 | CT_ITS ---
STUDY: CTA HEAD AND NECK WITH CONTRAST REASON FOR EXAM: Male, 69 years old. CVA RADIATION DOSAGE (If Supplied By Facility): CTDIvol = ( 31.25 ) mGy, DLP = ( 1623.23 ) mGycm TECHNIQUE: CT angiography was performed with a multi-detector CT scanner. Data acquisition was obtained from the skull base through the vertex following intravenous administration of IV 100mL Isovue-370. MIP images were reconstructed from the axial data set. Post-processing of the angiographic images was performed, with multiplanar reformation and 3D reconstruction. Individualized dose optimization techniques were used for this CT. COMPARISON: No relevant priors. FINDINGS: Normal bilateral petrous carotid arteries. Normal right cavernous carotid artery with a normal supraclinoid bifurcation. Normal left cavernous carotid artery with a normal supraclinoid bifurcation. Normal right A1 segments of the anterior cerebral artery. Normal left A1 segments of the anterior cerebral artery. Normal intact anterior communicating artery (ACOM). Normal bilateral A2 segments of the anterior cerebral arteries. Normal right M1 and M2 segments of the middle cerebral arteries, with a normal M1 bifurcation. Normal left M1 and M2 segments of the middle cerebral arteries, with a normal M1 bifurcation. Normal right posterior communicating artery (PCOM). Normal left posterior communicating artery (PCOM). Normal bilateral vertebral arteries. Normal basilar artery with a normal basilar bifurcation. The visualized bilateral superior cerebellar (SCA) arteries are normal. Normal bilateral P1, P2 and visualized P3 segments of the posterior cerebral arteries. There is no demonstrated aneurysm of the [place] of [place]. There is no demonstrated abnormality of the visualized brain. AORTIC ARCH: There is a mild degree of atherosclerotic calcific plaque formation of the aortic arch and great vessels arising from the aortic arch, without a hemodynamically significant stenosis. There is a normal origin of the brachiocephalic, left common carotid, and left subclavian arteries. RIGHT CAROTID ARTERIES: Normal right common carotid artery (CCA). Normal right common carotid bulb. Normal origin of the right internal carotid (ICA) artery without a hemodynamically significant stenosis. Normal visualized cervical portion of the right internal carotid artery. Normal origin of the right external carotid artery (ECA). LEFT CAROTID ARTERIES: Normal left common carotid artery (CCA). Normal left common carotid bulb. Normal origin of the left internal carotid (ICA) artery without a hemodynamically significant stenosis. Normal visualized cervical portion of the left internal carotid artery. Normal origin of the left external carotid artery (ECA). VERTEBRAL ARTERIES: There is enhancement within the bilateral vertebral arteries with a small left vertebral artery, and a dominant right vertebral artery. CT/CTA Head AND Neck W/ Contrast IMPRESSION: Normal CTA Head and neck with contrast. Electronically Signed: Antonio Landrum MD at 11:09 EDT ,
== END | disposition home or self-care (01) ==
LOC: CT 10:02
PROVIDERS: PCP Family Medicine Geriatric Medicine; Referring Provider Family Medicine Geriatric Medicine; Visit Provider Family Medicine Geriatric Medicine
DX: I63.9 Cerebral infarction, unspecified (principal)
CPT/HCPCS: 70496; 70498; Q9967

== ENCOUNTER → 2024-07-27 | Outpatient (CLI) | payer MEDICARE, OTHER, SELFPAY ==
[2024-07-27 09:23] LABS: Absolute Lymphocyte Count 1.43 X10^3/uL (0.83-4.51); Absolute Neutrophil Count 3.3 X10^3/uL (2.0-7.7); Basophil# 0.03 X10^3/uL; Basophil% 0.6 % (0-1); Eosinophil# 0.23 X10^3/uL; Eosinophils% 4.3 % (0-5); Hematocrit 48.7 % (40-54); Hemoglobin 16.4 g/dL (13.0-16.5); Lymphocyte # 1.43 X10^3/ul (0.83-4.51); Lymphocyte % 26.5 % (19-41); Mean Corp Hgb Conc 33.7 g/dL (32-36); Mean Corpuscular Hgb 30.6 pg (27.0-32.0); Mean Corpuscular Volume 90.9 fL (80-94); Mean Platelet Vol. 8.9 fl (6.2-12.0); Monocyte# 0.43 X10^3/uL; NRBC Flagged by Analyzer 0 % (0-5); Neutrophil # 3.27 X10^3/uL (2.7-7.7); Neutrophil % 60.4 % (47-70); Platelet Count 253 K/mm3 (150-450); RBC Distribution Width CV 13.2 % (11.6-14.6); RBC Distribution Width SD 44.1 fl (35.1-43.9); Red Blood Count 5.36 M/mm3 (4.6-6.2); White Blood Count 5.4 K/mm3 (4.4-11.0)
[2024-07-27 10:00] LABS: ALB/GLOB Ratio 0.9 RATIO (0.9-2.4); AST(SGOT) 20 U/L (15-37); Alanine Aminotransfer ALT/SGPT 28 U/L (16-61); Albumin, Serum 3.5 g/dL (3.2-5.0); Alkaline Phosphatase 106 U/L (45-117); Anion Gap 2 (5-15); BUN 14 mg/dL (7-18); BUN/Creat Ratio 13.5 RATIO (10-20); Calcium,Total 9.1 mg/dL (8.5-10.1); Chloride 111 mmol/L (98-107); Creatinine, Serum 1.04 mg/dL (0.70-1.30); EST Glomerular Filtration Rate 75 mL/min (>60); Est Glom Filt Rate - Afr Amer 91 mL/min (>60); Globulin 3.7 g/dL (2.2-4.2); Glucose 178 mg/dL (74-106); Potassium 3.9 mmol/L (3.5-5.1); Protein, Total 7.2 g/dL (6.4-8.2); Sodium Level 140 mmol/L (136-145)
[2024-07-27 10:07] LABS: Vitamin D,25 Hydroxy 28.3 ng/mL
[2024-07-27 14:18] LABS: Hemoglobin A1c 6.1 % (3.8-5.6)
== END | disposition home or self-care (01) ==
LOC: POLAB3 09:02
PROVIDERS: PCP Family Medicine Geriatric Medicine; Visit Provider Family Medicine Geriatric Medicine
DX: I10 Essential (primary) hypertension (principal); E55.9 Vitamin D deficiency, unspecified; R73.09 Other abnormal glucose
CPT/HCPCS: 36415; 80053; 82306; 83036; 84443; 85025

== ENCOUNTER → 2024-08-02 | Outpatient (CLI) | payer MEDICARE, OTHER, SELFPAY ==
--- NOTE | 2024-08-02 12:41 | CDU_ITS ---
Reason For Study: ISCHEMIC STROKE Rt. Velocities/BP Lt. Velocities/BP Prox CCA 78.7/16.0 cm/sec. Prox CCA 82.0/23.7 cm/sec. Mid CCA 69.9/20.4 cm/sec. Mid CCA 82.0/23.7 cm/sec. Dist CCA 57.8/18.2 cm/sec. Dist CCA 74.3/18.2 cm/sec. Prox ICA 33.1/13.0 cm/sec. Prox ICA 51.1/12.7 cm/sec. Mid ICA 68.8/28.1 cm/sec. Mid ICA 56.3/22.3 cm/sec. Dist ICA 41.0/17.9 cm/sec. Dist ICA 69.4/24.1 cm/sec. Rt. ICA/CCA = 68.8/69.9=1.0. Lt. ICA/CCA = 69.4/82.0=0.8. Prox ECA 63.3/12.7 cm/sec. Prox ECA 64.4/16.0 cm/sec. Rt. Vert. 31.7/9.0 cm/sec. Lt. Vert. 44.1/17.1 cm/sec. Right Extracranial There is homogeneous, smooth atherosclerotic plaque noted in the right common carotid artery. There is homogeneous, smooth atherosclerotic plaque noted in the right internal carotid artery. There is heterogeneous, irregular atherosclerotic plaque noted in the right external carotid artery. The right external carotid artery is not well visualized. Antegrade flow is noted in the right vertebral artery. Left Extracranial There is intimal thickening but no significant atherosclerotic plaque noted in the left common carotid artery. There is homogeneous, smooth atherosclerotic plaque noted in the left internal carotid artery. There is intimal thickening but no significant atherosclerotic plaque noted in the left external carotid artery. Antegrade flow is noted in the left vertebral artery. Procedure Carotid Duplex [id number]. This is a Carotid Duplex examination using B-mode, color flow and specral Doppler. Exam performed in department. VL/Carotid Duplex Ultrasound Interpretation Summary Mild (<50%) stenosis right extracranial internal carotid. Mild (<50%) stenosis left extracranial internal carotid. Patent and antegrade vertebrals bilaterally. Ordering Physician: Marco Kilgore Chi Referring Physician: Marco Kilgore Chi Performed By: Kalli Nguyen, ABHINAV, RVT
== END | disposition home or self-care (01) ==
PROVIDERS: PCP Family Medicine Geriatric Medicine; Referring Provider Family Medicine Geriatric Medicine; Visit Provider Family Medicine Geriatric Medicine
DX: I63.9 Cerebral infarction, unspecified (principal); Z86.73 Personal history of transient ischemic attack (TIA), and cerebral infarction without residual deficits
CPT/HCPCS: 93880

== ENCOUNTER → 2024-08-13 | Outpatient (CLI) | payer MEDICARE, OTHER, SELFPAY ==
--- NOTE | 2024-08-13 10:49 | ECHOD_ITS ---
Reason For Study: Ischemic Stroke Procedure This was a 2D Doppler, Color Flow transthoracic echocardiogram. Exam performed in department. Left Ventricle Normal size and thickness. The left ventricular ejection fraction is 65 %. Normal diastology for age. Right Ventricle Normal right ventricle. Atria The left and right atria are normal. Bubble contrast study is negative for PFO/ASD. Mitral Valve Focal calcification of the anterior mitral valve leaflet. Trivial mitral valve insufficiency. Tricuspid Valve Trivial tricuspid valve insufficiency. Unable to estimate RV systolic pressure due to insufficient tricuspid regurgitant envelope. Aortic Valve Trisinus/trileaflet aortic valve. Pulmonic Valve The pulmonic valve is not well visualized. Great Vessels Normal sized aortic root. Pericardium/Pleural No pericardial effusion. Medication 22 gauge I.V. with prn adaptor inserted into right arm. Performed a rapid injection of agitated mix of 9 cc saline and 1cc air to assess for atrial septal defect. MMode/2D Measurements & Calculations LVIDd: 5.1 cm IVSd: 1.4 cm LVOT diam: 2.2 cm LVIDs: 3.1 cm LVPWd: 0.88 cm RVDd: 3.2 cm FS: 39.8 % LVOT area: 3.7 cm2 Ao root diam: 3.9 cm asc Aorta Diam: 3.5 cm LAV(MOD-bp): 67.4 ml LAV(MOD-sp2): 71.1 ml LAV(MOD-sp4): 61.1 ml LVAd ap4: 34.4 cm2 SV(MOD-sp4): 64.9 ml SV(sp4-el): 72.0 ml LVLd ap4: 7.9 cm EDV(MOD-sp4): 120.5 ml EDV(sp4-el): 127.9 ml LVAs ap4: 22.0 cm2 LVLs ap4: 7.3 cm ESV(MOD-sp4): 55.6 ml ESV(sp4-el): 55.9 ml EF(MOD-sp4): 53.9 % EF(sp4-el): 56.3 % LA A4 area: 20.6 cm2 RA A4 area: 18.9 cm2 TAPSE: 2.5 cm Time Measurements MV dec time: 0.22 sec Doppler Measurements & Calculations MV E max david: 53.4 cm/sec Lat Peak E' David: 8.5 cm/sec Med Peak E' David: 7.3 cm/sec MV A max david: 53.4 cm/sec E/E' lat: 6.2 E/E' med: 7.3 MV E/A: 1.0 MV V2 max: 72.7 cm/sec MV P1/2t max david: 59.4 cm/sec Ao V2 max: 98.1 cm/sec MV max P.1 mmHg MV P1/2t: 83.5 msec Ao max P.8 mmHg MV V2 mean: 38.1 cm/sec Ao V2 mean: 75.8 cm/sec MV mean P.70 mmHg MV dec slope: 208.6 cm/sec2 Ao mean P.5 mmHg MV V2 VTI: 25.6 cm MVA(P1/2t): 2.6 cm2 Ao V2 VTI: 21.9 cm AV (velocity ratio): 0.93 MVA(VTI): 2.9 cm2 ULISES(I,D): 3.4 cm2 ULISES(V,D): 3.1 cm2 LV V1 max: 83.1 cm/sec SV(LVOT): 74.1 ml PA V2 max: 83.2 cm/sec LV V1 max P.8 mmHg PA max PG (full): 1.5 mmHg LV V1 mean P.6 mmHg LV V1 mean: 60.2 cm/sec LV V1 VTI: 20.3 cm TR max david: 246.3 cm/sec TR max P.3 mmHg ECHO/Echo Complete Interpretation Summary The left ventricular ejection fraction is 65 %. Bubble contrast study is negative for PFO/ASD. Focal calcification of the anterior mitral valve leaflet. Ordering Physician: Marco Kilgore Chi Referring Physician: Marco Kilgore Chi Performed By: Jesus Alberto Yanes and Student
== END | disposition home or self-care (01) ==
PROVIDERS: PCP Family Medicine Geriatric Medicine; Referring Provider Family Medicine Geriatric Medicine; Visit Provider Family Medicine Geriatric Medicine
DX: Z86.73 Personal history of transient ischemic attack (TIA), and cerebral infarction without residual deficits (principal)
CPT/HCPCS: 93306; A4216

== ENCOUNTER → 2024-09-07 | Outpatient (CLI) | payer MEDICARE, OTHER, SELFPAY ==
[2024-09-07 11:25] LABS: Absolute Lymphocyte Count 1.42 X10^3/uL (0.83-4.51); Absolute Neutrophil Count 3.4 X10^3/uL (2.0-7.7); Basophil# 0.03 X10^3/uL; Basophil% 0.5 % (0-1); Eosinophil# 0.29 X10^3/uL; Eosinophils% 4.8 % (0-5); Hematocrit 46.7 % (40-54); Hemoglobin 15.4 g/dL (13.0-16.5); Lymphocyte # 1.42 X10^3/ul (0.83-4.51); Lymphocyte % 23.6 % (19-41); Mean Corpuscular Hgb 30.4 pg (27.0-32.0); Mean Corpuscular Volume 92.3 fL (80-94); Mean Platelet Vol. 8.7 fl (6.2-12.0); Monocyte# 0.84 X10^3/uL; NRBC Flagged by Analyzer 0 % (0-5); Neutrophil # 3.42 X10^3/uL (2.7-7.7); Neutrophil % 56.8 % (47-70); Platelet Count 242 K/mm3 (150-450); RBC Distribution Width CV 13.1 % (11.6-14.6); RBC Distribution Width SD 44.5 fl (35.1-43.9); Red Blood Count 5.06 M/mm3 (4.6-6.2)
[2024-09-07 12:01] LABS: ALB/GLOB Ratio 1.1 RATIO (0.9-2.4); AST(SGOT) 19 U/L (15-37); Alanine Aminotransfer ALT/SGPT 23 U/L (16-61); Albumin, Serum 3.7 g/dL (3.2-5.0); Alkaline Phosphatase 103 U/L (45-117); Anion Gap 5 (5-15); BUN 18 mg/dL (7-18); Calcium,Total 9.1 mg/dL (8.5-10.1); Chloride 111 mmol/L (98-107); Creatinine, Serum 0.94 mg/dL (0.70-1.30); EST Glomerular Filtration Rate 84 mL/min (>60); Est Glom Filt Rate - Afr Amer 101 mL/min (>60); Globulin 3.5 g/dL (2.2-4.2); Glucose 110 mg/dL (74-106); Protein, Total 7.2 g/dL (6.4-8.2); Sodium Level 142 mmol/L (136-145)
== END | disposition home or self-care (01) ==
LOC: LAB 10:48
PROVIDERS: PCP Family Medicine Geriatric Medicine; Referring Provider Family Medicine Geriatric Medicine; Visit Provider Family Medicine Geriatric Medicine
DX: Z01.818 Encounter for other preprocedural examination (principal); I10 Essential (primary) hypertension
CPT/HCPCS: 36415; 80053; 85025; 85610

== ENCOUNTER → 2024-09-19 | Outpatient (CLI) | payer MEDICARE, OTHER, SELFPAY ==
--- NOTE | 2024-09-19 13:48 | CT_ITS ---
CT LEFT LOWER EXTREMITY WITH 3-D IMAGING CLINICAL INDICATION: Templating for left TKA. TECHNIQUE: Axial CT images of the left lower extremity (including left hip, left knee, and left ankle) was performed without IV contrast material. Coronal and sagittal reformats were provided. The protocol utilizes one or more of the following dose reduction techniques: automated exposure control, adjustment of mA and/or kV according to patient size, and/or use of iterative reconstruction technique. RADIATION DOSAGE (If Supplied By Facility): CTDIvol = ( 18.76 ) mGy, DLP = ( 1406.71 ) mGycm COMPARISON: Left knee radiographs dated 01/26/2024. FINDINGS: Bones: There is mild degenerative arthrosis at the pubic symphysis and left hip joint. There is tricompartment degenerative arthrosis of the left knee joint, most severe in the medial femorotibial compartment, where there is moderate to severe joint space narrowing, marginal osteophyte formation, and subchondral sclerosis/cyst formation. There is tiny smooth osseous fragmentation at the anterior margin of the tibiotalar joint (axial series 2 image 558; sagittal reformat series 607 image 31). Osseous structures are intact without evidence of acute fracture or dislocation. No lytic or blastic osseous masses. Soft Tissues: There is a small left knee joint effusion. The deep soft tissue structures are unremarkable. The superficial soft tissues are unremarkable without evidence of edema, hematoma, or foreign body. CT/Extremity Lower without Contra IMPRESSION: Tricompartment degenerative arthrosis of the left knee, most severe in the medial femorotibial compartment. Small left knee joint effusion. Electronically Signed: Octaviano Cassidy MD at 15:40 EDT ,
--- OUTSIDE RECORDS SUMMARY | 2024-09-19 16:20 | XMS RPT_ITS | CCD ---
Author Organization [facility]Formerly [facility] [employer]PERATIONS MANAGER [facility] Care Team Providers Care Cushion Maker Hand Name Role Phone Unavailable Unavailable Unavailable LEELA BETTS Unavailable Unavail able GINGER HAWKINS. Unavailable Unavailable Ginger Hawkins Unavailable Unavailable Ginger Hawkins Unavailable Unavailable MARTHA DISLA II Unavailable UnavailGinger Donald Admitting Unavailable Ginger Hawkins Attending Unavailable Ginger Hawkins Primary Care Unavailable Unavailable Primary Care Provider Unavailcomfort Hawkins, Dr. Ginger Ureña Attending Unavaila ble Elmo, Dr. Ginger Ureña Primary Care Unavaila GINGER Agosto Primary Care Unavailable GINGER HAWKINS Referring Unavailable GINGER HAWKINS Attending Unavailable GINGER HAWKINS Primary Care Unavailable KAREN GONZALES Attending Unavailable CAROLE HOPKINS Referring Unavaila GINGER Agosto Primary Care Unavailable Allergies Allergy Classification Reported Allergen(s) Allergy Type Date of Onset Reaction(s) Facility (1 source) Seasonal allergy; Translations: [SEASONAL ALLERGIES] [facility]disorder[facility]) ALLERGIES NOT ON FILE; Translations: [ALLERGIES NOT ON FILE] Propensity to adverse reactions (disorder) [facility] 2 Repository Problems Problem Classification Problem Date Documented Da te Episodic/Chronic Blindness and vision defects (1 source) Presbyopia; Translations: [Presbyopia] Onset: 05-23-2018 Episodic Osteoarthritis (2 sources) Unilateral primary osteoarthritis, left knee; Translations: [Unilateral primary osteoarthritis, left knee] Onset: 08-27-2024 Chronic Other nervous system disorders (2 sources) Other chronic pain; Translations: [Other chronic pain] Onset: 11-23-2022 Chronic Other non-traumatic joint disorders (1 source) Pain in left hip; Translations: [Pain in left hip] Onset: 11-08-2022 Episodic Residual codes; unclassified (2 sources) Localized edema; Translations: [Localized edema] Onset: 08-27-2024 Episodic Spondylosis; intervertebral disc disorders; other back problems (1 source) Spondylosis without myelopathy or radiculopathy, lumbosacral region; Translations: [Spondyls w/o myelopathy or radiculopathy, lumbosacr region] Onset: 11-08-2022 Chronic Spondylosis; intervertebral disc disorders; other back problems (5 sources) Lumbago with sciatica, left side; Translations: [Lumbago with sciatica, right side] Onset: 11-08-2022 Episodic Results Test Name Value Interpretation Reference Range Facility MRI SPINE LUMBAR WITHOUT CON TRASTon 11-23-2022 MRI SPINE LUMBAR WITHOUT CONTRAST CLINICAL INDICATION: Chronic bilateral low back pain with bilateral sciatica EXAM DESCRIPTION: MRI SPINE LUMBAR WITHOUT CONTRAST 11/23/2022 2:08 pm COMPARISON: No relevant prior or comparison studies are available. TECHNIQUE: Routine lumbar spine protocol was performed. FINDINGS: Vertebral body heights are normal. No bone marrow edema or compression fracture is present. Alignment is grossly unremarkable. The conus medullaris is normal in size, signal and position. L1-2: Moderate diffuse annular disc bulging is identified. A shallow central focal disc protrusion is identified measuring 10 x 5 mm causing impression upon the ventral aspect of the thecal sac. Mild facet joint disease is present. Minimal neural foraminal narrowing is present. L2-3: Moderate facet joint disease is present. Loss of disc height and diffuse annular disc bulging is present. An extruded disc is identified extending inferiorly into the left lateral recess and causing moderate compression upon the thecal sac. The extruded component of the disc measures 11 x 18 mm (AP x CC). Moderate neural foraminal narrowing is present bilaterally. L3-4: Moderate diffuse annular disc bulging and facet joint disease is present. Mild central canal stenosis is identified. Shallow focal disc protrusion is present causing impression upon the ventral aspect of thecal sac measuring 9 x 4 mm. Small portion of this disc extends below the superior endplate of L4 along the posterior margin of the L4 vertebral body suggesting an early extruded disc. Moderate to severe bilateral neural foraminal narrowing is present. L4-5: There is minimal anterolisthesis of L4 with respect to L5 secondary to advanced facet joint disease. No focal disc protrusion is identified. Moderate diffuse annular disc bulging is present. Moderate to high-grade bilateral neural foraminal narrowing is present. L5-S1: Moderate facet joint disease is noted bilaterally. Diffuse annular disc bulging is present. Thecal sac is well maintained. Mild neural foraminal narrowing is present bilaterally. IMPRESSION: Extensive multilevel degenerative disc and facet joint disease as detailed above. Normal [facility] SPINE, LUMBOSACRAL MIN 4 VIE WSon 11-08-2022 SPINE, LUMBOSACRAL MIN 4 VIEWS Patient Name: GAEL DOMÍNGUEZ STUDY: SPINE, LUMBOSACRAL MIN 4 VIEWS; 11/08/2022 4:05 pm INDICATION: M25.552 M54.42. COMPARISON: None. ACCESSION NUMBER(S): [id number] ORDERING CLINICIAN: GINGER HAWKINS FINDINGS: No acute compression fracture is seen. There are degenerative changes which include disc space narrowing, endplate spurring, endplate sclerosis, posterior disc osteophyte complexes, and facet hypertrophy. There is mild subluxation at several levels, most likely related to facet degenerative disease. Spurring facet joints demonstrating normal alignment. There is no evidence of spondylolysis. No lytic or blastic lesion is seen. IMPRESSION: No radiographic evidence of an acute fracture. Advanced multilevel degenerative changes. Electronically signed by: CASISE DARBY MD [facility] PROGRESSon 05-23-2018 PROGRESS HNO ID: [id number] thor: Martha Disla IIService: (none)Author Type: OPTOMETRISTType: Progress NotesFiled: 05/23/2018 2:37 PMNote Text:ASSESSMENT/PLAN:1. Hypermetropia of both eyes - ICD9: 367.0, ICD10: H52.03 (primarydiagnosis)2. Presbyopia - ICD9: 367.4, ICD10: H52.43. Regular astigmatism of both eyes - ICD9: 367.21, ICD10: H52.223Update glasses to maximize visual performance. Past problems with PAL andFT bifocal. Suggest trifocal.4. Nuclear cataract - ICD9: 366.16, ICD10: H25.10Trace cataract in both eyes. Well tolerated at this time. Monitor asinstructed.I have confirmed and edited as necessary the relevant ophthalmic history,review of systems, surgical history, and ophthalmological examinationfindings as obtained by the ophthalmic technical staff. I have seen andexamined Gael Domínguez Jr.. I have discussed the examination findings,diagnosis, and treatment options with the patient and/or the patient'sfamily. I have also reviewed and agree with the assessment and plan asstated above and agree with all its relevant components. I gave thepatient the opportunity to ask questions about the findings, diagnosis,and treatment options.Martha Disla, II, OD Normal [facility] XR SPINE LUMBAR FLEX/EXT W/O BLIQUESon 03-07-2018 XR SPINE LUMBAR FLEX/EXT W/OBLIQUES ORIGINALXR SPINE LUMBAR FLEX/EXT W/OBLIQUES CLINICAL STATEMENT: HERNIATION OF INTERVERTEBRAL DISC OF LUMBAR SPINE. COMPARISON: None FINDINGS: Vertebral body heights are intact. Moderate multilevel degenerative changes are noted from L1 through S1. Minimal grade 1 anterolisthesis of L3 versus L2 and L4 versus L3. Pedicles are intact. Flexion and extension images do not demonstrate abnormal motion to suggest instability. IMPRESSION: Moderate degenerative changes. Interpreted By: Lam Guerra MDPreliminary Report By: Lam Guerra MDElectronically Signed By: Lam Guerra MD Dictated Date: 03/07/2018 11:30:44 AM Prelim Date: 03/07/2018 11:30:44 AM Sign Date: 03/07/2018 11:32:00 AM Normal [facility] ([place]) MRI LOWER EXT JOINT W/O CONT on 01-12-2018 MRI LOWER EXT JOINT W/O CONT Final ReportAccession No: [id number] Performed: Jan 12 2018 11:07AMExamination: LEFT MRI LOWER EXT JOINT W/O CONTMRI OF THE LEFT KNEE WITHOUT CONTRAST: 01/12/2018.HISTORY: Chronic back pain and left hip pain.TECHNIQUE: Axial and coronal T1 and STIR images were obtained through thepelvis with smaller [id number] sagittal T2 and coronal T1 and STIRimages ofthe left hip without contrast.FINDINGS: There is no fracture involving the visualized sacrum or coccyx.Thepelvic bones are intact, including the pubic rami. There is no MRIevidence ofavascular necrosis involving the femoral heads.There is mild symmetric degenerative change of the hips with joint spacenarrowing more pronounced along the posterior aspect of the hips. Nosignificant hip joint effusion is identified. No well-defined labral tearisevident. There is no paralabral cyst. Motion artifact mildly degradesevaluation on this study.There is mild intermediate signal of the hamstring tendon originbilaterallyconsistent with mild tendinopathy. The iliopsoas tendons insert normallyontothe lesser trochanter. The gluteal tendon attachment onto the greatertrochanter is grossly intact bilaterally. There is no MRI evidence oftrochanteric bursitis.There is mild degenerative spurring along the anterior aspect of thesacroiliacjoints. There is no marrow edema or osseous erosion adjacent to thesacroiliacjoints. No acute abnormality is identified involving visualizedintrapelvicstructure s.Moderately severe degenerative disc disease is present at L5-S1 with mildtomoderate degenerative disc disease at L4-L5. There is mild marrow edemain thesuperior endplate of L5 on the left. The lumbar spine is incompletelyevaluatedon this study.IMPRESSION:1. No acute bony abnormality involving the sacrum, pelvic bones or hips.Thereis no acute fracture or MRI evidence of avascular necrosis involving thefemoral heads.2. There is relatively mild symmetric degenerative change of the hips asdescribed above.3. There is moderately severe degenerative disc disease at L5-S1 and mildtomoderate degenerative disc disease at L4-L5 more pronounced on the left.Thelumbar spine is incompletely evaluated on this study.4. There is mild tendinopathy of the hamstring tendon origin bilaterally.Angely-defined tendon tear or muscle strain is identified.Interpreting Physician: ZAYDA TRIANA M.D.Trans: lcoope : cc: Normal [facility] Encounters Encounter Date Encounter Type Care Provider Facility Start: 08-27-2024 End: 08-27-2024 ambulatory KAREN GONZALES [facility] Start: 11-23-2022 ambulatory GINGER Herrera y:[facility] Start: 11-18-2022 ambulatory GINGER Herrera y:[facility] Start: 11-08-[address] Ginger Hawkins Facility:[id number] Start: 01-05-2021 End: 01-05-2021 Orders Only Latha Lopez Cristopher Work Phone: [facility] Start: 11-02-2018 End: 01-16-2019 Patient encounter procedure Ginger Hawkins Facility:[facility] Start: 05-23-2018 End: 05-24-2018 Ambulatory MARTHA DISLA II [facility] Start: 03-07-2018 End: 03-08-2018 Ambulatory LEELA BETTS Facility:[place] Start: 01-12-2018 Ambulatory Ginger Hawkins [facility] y:[place] Start: 01-12-2018 End: 01-12-2018 Ambulatory Ginger Hawkins Work Phone: [facility] Payers Date Payer Category Payer Unknown [id number] 2022 Medicare [id number] 2018 Unknown 2018 Medicare 2014 Unknown [id number] 1955 Unknown [id number] 1955 Unknown [id number] [id number] [id number] 1955 Unknown [id number] [id number] [id number] 1955 Unknown [id number] 2.16.8 [id number] 1955 Unknown [id number] 2.16.8 [id number] Unknown [id number] Social History Date Type Detail Facility [facility]: [facility]-2018 [facility] Work Phone: Sex Assigned At Not on file [facility] Work Phone: Summary Purpose Family History No [...] ized section and content) DATE CREATED AUTHOR 05/18/2018 [facility] ([place]) DATE CREATED AUTHOR AUTHOR'S ORGANIZ ATION 05/19/2018 [facility] DATE CREATED AUTHOR AUTHOR'S ORGANIZ ATION 05/24/2018 [facility] DATE CREATED AUTHOR AUTHOR'S ORGANIZ ATION 01/16/2019 [facility] DATE CREATED AUTHOR AUTHOR'S ORGANIZ ATION 11/17/2022 [facility] DATE CREATED AUTHOR AUTHOR'S ORGANIZ ATION 11/24/2022 [facility] DATE CREATED AUTHOR AUTHOR'S ORGANIZ ATION 08/27/2024 [facility] FOR RECORDS PERTAINING TO PATIENTS WHO ARE [...] BE BASED ON THE PRIMARY CLINICAL RECORDS. [facility]. provides no warranty or guarantee of the accuracy or completeness of information in this document.
== END | disposition home or self-care (01) ==
PROVIDERS: PCP Family Medicine Geriatric Medicine; Referring Provider Orthopaedic Surgery; Visit Provider Orthopaedic Surgery
DX: M17.12 Unilateral primary osteoarthritis, left knee (principal)
CPT/HCPCS: 73700

== ENCOUNTER 2024-10-03 13:27 | Inpatient (IN) | payer MEDICARE, OTHER, SELFPAY ==
[2024-09-19 15:56] LABS: Magnesium 2.2 mg/dL (1.6-2.6)
[2024-09-19 16:28] LABS: Hemoglobin A1c 6.2 % (3.8-5.6)
[2024-09-21 08:13] LABS: Fructosamine 256 umol/L (0-285)
[2024-10-03] VITALS (17 sets, daily range): BP systolic 108–145; BP diastolic 59–82; PULSE 53–76; RESP 14–18; TEMP 36–36.7; O2SAT 90–96; BMI 34.9
[2024-10-03] MEDS: Magnesium 1 GM over 15 mins IV (09:40)
--- NOTE | 2024-10-03 09:42 | PCM.PRE.AN2 ---
ASA Classification* ASA Classification ASA Classification: 3 Assessment & Plan Anesthesia* Anesthesia Assessment Anesthesia Assessment: Discussed sedation and/or anesthesia options, risks, benefits, and alternatives with patient/parents/legal guardian/POA. Questions invited. The patient/parents/legal guardian/POA seems to understand and agrees to proceed with anesthesia plan. Reviewed the physical assessment, medical history, allergy history and patient home medications list prior to surgery/procedure/anesthetic and documented any changes. Performed airway and anesthesia risk assessments. Anesthesia Type Anesthesia Type: Spinal (Block Consented) Anesthesia Focused Assessment* Temperature: 97.6 F Pulse Rate: 67 Blood Pressure: 145/82 Respiratory Rate: 18 Pulse Ox: 96 Airway Assessment Mouth opens: >3 cm Mallampati Score: II Focused Labs Anesthesia Preop lab: CBC WBC 6.0 K/mm3 (4.4-11.0) 09/07/24 10:59 RBC 5.06 M/mm3 (4.6-6.2) 09/07/24 10:59 Hgb 15.4 g/dL (13.0-16.5) 09/07/24 10:59 Hct 46.7 % (40-54) 09/07/24 10:59 Plt Count 242 K/mm3 (150-450) 09/07/24 10:59 CHEMISTRY Potassium 4.0 mmol/L (3.5-5.1) 09/07/24 10:59 Sodium 142 mmol/L (136-145) 09/07/24 10:59 Magnesium 2.2 mg/dL (1.6-2.6) 09/19/24 13:35 BUN 18 mg/dL (7-18) 09/07/24 10:59 Creatinine 0.94 mg/dL (0.70-1.30) 09/07/24 10:59 Glucose 110 mg/dL (74-106) H 09/07/24 10:59 POC Glucose 186 mg/dL (74-106) H 01/10/23 06:04 TSH 2.070 uIU/mL (0.358-3.740) 09/19/24 13:35 COAG PT 13.0 SECONDS (11.7-14.9) 09/07/24 10:59 Pre-Assessment Diagnosis/Proposed Procedure Planned Operative Procedure(s): LEFT TOTAL KNEE ARTHROPLASTY ROBOTIC Anesthesia History Anesthesia History - customer engagement representative: Anesthesia History - customer engagement representative Hx Hospitalization No 09/19/24 08:39 Any Problems With Anesthesia Yes: SLOW TO AWAKEN 09/19/24 08:39 Cholinesterase deficiency No 09/19/24 08:39 You/Your Family Experience No 09/19/24 08:39 fever (hyperthermia) with Relationship Recent Exposure to Contagious No 10/03/24 09:16 Disease Does patient have nerve No 09/19/24 08:39 stimulator Patient instructed to have device shut off --Does patient have Pacemaker No 10/03/24 09:16 or ICD? When Was Last Pacemaker Check QUESTION #4 FULL TEXT: You/Your Family Experience fever (hyperthermia) with Anesthesia Last Oral Intake Last Oral intake: Last Oral Intake NPO since 07:00 10/03/24 09:16 Meds taken in AM with sips of Yes 10/03/24 09:16 water? Meds patient instructed to amlodipine 10/03/24 09:16 take am of surgery PONV PONV - customer engagement representative: PONV - customer engagement representative Female No 09/19/24 08:39 HX of Motion Sickness No 09/19/24 08:39 HX of N/V After Surgery No 09/19/24 08:39 Non-Smoker Yes 09/19/24 08:39 Duration of Surgery greater Yes 09/19/24 08:39 than 60 minutes Number of Risk Factors 2 09/19/24 08:39 PONV Score Moderate Risk 09/19/24 08:39 Height & Weight Height & Weight: Anesthesia: Height & Weight Height 5 ft 7 in 10/03/24 09:16 Weight: 101 kg 10/03/24 09:16 Body Mass Index (BMI) 34.9 10/03/24 09:16 Respiratory Assessment Respiratory Assessment - customer engagement representative: Respiratory Tract Infection Hx - customer engagement representative Hx Respiratory Tract Infection No 09/19/24 08:39 STOP Sleep Apnea STOP Sleep Apnea - customer engagement representative: STOP Sleep Apnea - customer engagement representative Hx Hypertension Yes: CONTROLLED WITH MED 09/19/24 08:39 Hx Sleep Apnea Yes 09/19/24 08:39 CPAP Yes 09/19/24 08:39 BIPAP No 09/19/24 08:39 Do you snore loudly (louder than talking or can be heard Do you often feel tired/ fatigued/ sleepy during daytime? Has anyone observed you stop breathing during sleep? STOP Results Positive 09/19/24 08:39 QUESTION #5 FULL TEXT : Do you snore loudly (louder than talking or can be heard through closed doors)? Tobacco Use History Tobacco Use History - customer engagement representative: Tobacco Use History - customer engagement representative Tobacco Use Smoking Status Never smoker 09/19/24 08:39 Hx Tobacco Use No 09/19/24 08:39 Years Smoking Packs Smoked per Day Smoking Cessation Date was within the last 15 years Hx Smoking Cessation Date Hx Smoking Cessation Counseling Hematologic Medial History Hematologic Hx - customer engagement representative: Hematologic Medical Hx - documentation billing clerk Hx of Blood Transfusion No 09/19/24 08:39 Hx of Transfusion in last 3 No 09/19/24 08:39 Months Date of Last Transfusion (if within last 3 months) Ever experience any problems No 09/19/24 08:39 with transfusion(s)? Specify any problems Hx of Preganancy in last 3 N/A 09/19/24 08:39 Months Nurse Filling Out Transfusion DSCHRIBER 09/19/24 08:39 & Questions: Date: 09/19/24 09/19/24 08:39 Time: 08:41 09/19/24 08:39 Patient unable to answer at this time (ie. confused, unrespo /Reproduction History /Reproductive History - customer engagement representative: /Reproductive Hx- customer engagement representative Hx Now No 09/19/24 08:39 Gestational Age (in weeks): EDC: Hx Hx Para Hx Section SAB No 09/19/24 08:39 Active Medications Active Medications: Current Medications Generic Name Dose Route Start Last Admin Trade Name Freq PRN Reason Stop Dose Admin Lactated Ringer's 1,000 mls @ 125 mls/hr 10/03/24 07:30 IV 10/03/24 15:29 .Q8H ANEUDY Lactated Ringer's 1,000 mls @ 15 mls/hr 10/03/24 09:15 IV 10/08/24 22:34 .Q48H ANEUDY Protocol Insulin Human Lispro 1 - 6 unit 10/03/24 07:30 Insulin Lispro 100 Unit/Ml Insuln.Pen SC 10/03/24 13:00 Q4H PRN PRN BG>/= 180, SEE PROTOCOL Protocol PFSH Medical History Loss of hearing Migraine headache Injury of head and neck Syncope History of echocardiogram Cardiology follow-up encounter DVT (deep venous thrombosis) Ischemic stroke Osteoarthritis Vitamin D deficiency BPH (benign prostatic hyperplasia) GERD (gastroesophageal reflux disease) Essential hypertension Hyperlipidemia Hypothyroidism Wears glasses Cancer Back pain CPAP (continuous positive airway pressure) dependence Shortness of breath on exertion Leg cramps History of pain when walking History of stress test History of irregular heartbeat HNP (herniated nucleus pulposus), lumbar Melanoma Lower back pain Home Medications ?Medication ?Instructions ?Recorded ?Last Taken ?Type omeprazole 40 mg capsule,delayed 40 mg PO DAILY GERD 12/02/22 10/02/24 History release amlodipine 5 mg tablet 5 mg PO QDAY BP 08/14/24 10/03/24 History aspirin 81 mg tablet,delayed 81 mg PO QDAY SUPPLEMENT 08/14/24 09/28/24 History release (Adult Low Dose Aspirin) atorvastatin 40 mg tablet 40 mg PO QHS CHOLESTEROL 08/14/24 10/02/24 History cholecalciferol (vitamin D3) 25 25 mcg PO QDAY SUPPLEMENT 08/14/24 10/02/24 History mcg (1,000 unit) tablet levothyroxine 200 mcg tablet 400 mcg PO SA THYROID 08/14/24 09/29/24 History (Synthroid) tamsulosin 0.4 mg capsule (Flomax) 0.8 mg PO QHS PROSTATE 08/14/24 10/02/24 History loratadine 10 mg tablet 10 mg PO DAILY ALLERGIES 09/19/24 10/01/24 History (Allerclear) Allergy/AdvReac Type Severity Reaction Status Date / Time No Known Allergies Allergy Verified 10/03/24 09:13 Family History Father CVA (cerebral vascular accident) Other Arthritis Diabetes Surgical History History of colonoscopy S/P laminectomy Hx of ventral hernia repair Hx of knee surgery Social History Smoking Status: Never smoker alcohol intake: never substance use type: does not use caffeine: Yes Review of Systems (Anesthesia) ROS Narrative System reviewed and no additional complaints, except as documented.
[2024-10-03] MEDS: Gabapentin 600 MG Tablet PO (09:44)
[2024-10-03] MEDS: Celecoxib 200 MG Capsule 400 MG PO (09:44)
[2024-10-03] MEDS: Acetaminophen 500 MG Tablet 1000 MG PO ×3 (09:44→20:49)
[2024-10-03] MEDS: Scopolamine 1mg/72hr Patch 1 PATCH TD (09:46)
[2024-10-03] MEDS: Lactated Ringers 1,000 ML 15 ML IV (09:47)
--- NOTE | 2024-10-03 10:19 | PCM.HP.BLA ---
History and Physical Date of Admission: 10/03/24 [facility] [address] [place] [address] OFFICE VISIT Date of Service: 08/17/24 MR#: [id number] Acct: [id number] Name: CANDIS JIMENEZ Jr. Rep #: [id number] : 1955 Provider: Dr. Gabriel Cornelius DO Age/Sex: 69/M Location: [facility] [email or web address] Status: Signed Intake Vital Signs 01/11/2314:02 08/01/2415:05 08/17/2408:02 Height 5 ft 5 in 5 ft 5 in 5 ft 6 in Weight: 227 lb BMI 36.6 Intake Visit Reasons: BILAT KNEES Chief Complaint: bilateral knee pain Is patient in pain?: Yes (bilateral knees) Pain scale (1-10): 9 Allergies No Known Allergies Allergy (Verified 08/17/24 08:04) Medications ?Medication ?Instructions ?Recorded ?Confirmed ?Type omeprazole 40 mg capsule,delayed 40 mg PO DAILY 12/02/22 08/14/24 History release amlodipine 5 mg tablet 5 mg PO QDAY 08/14/24 08/14/24 History aspirin 81 mg tablet,delayed 81 mg PO QDAY 08/14/24 08/14/24 History release (Adult Low Dose Aspirin) atorvastatin 40 mg tablet 40 mg PO QHS 08/14/24 08/14/24 History cholecalciferol (vitamin D3) 25 25 mcg PO QDAY 08/14/24 08/14/24 History mcg (1,000 unit) tablet levothyroxine 200 mcg tablet 200 mcg PO QDAY 08/14/24 08/14/24 History (Synthroid) tamsulosin 0.4 mg capsule (Flomax) 0.8 mg PO DAILY 08/14/24 08/14/24 History Have you fallen in the past year?: Yes [facility] Medical History DVT (deep venous thrombosis) Ischemic stroke Essential hypertension Hyperlipidemia Hypothyroidism CPAP (continuous positive airway pressure) dependence Vitamin D deficiency BPH (benign prostatic hyperplasia) Osteoarthritis GERD (gastroesophageal reflux disease) Lower back pain HNP (herniated nucleus pulposus), lumbar Wears glasses Cancer Depression Anxiety Arthritis Back pain Dietary restriction Sleep apnea Shortness of breath on exertion Leg cramps History of pain when walking History of stress test History of irregular heartbeat Melanoma Surgical History History of colonoscopy S/P laminectomy Hx of ventral hernia repair Hx of knee surgery Family History Father CVA (cerebral vascular accident)Other Arthritis Diabetes Social History Smoking Status: Never smoker alcohol intake: never substance use type: does not use HPI BILAT KNEES Chief Complaint: bilateral knee pain Details: This documentation accurately reflects the service provided and the decisions made by me, Dr. Gabriel Cornelius, DO 08/17/24 08. Part of today?s visit was documented by María LOPEZ, acting as scribe. CANDIS JIMENEZ is a 69 year old M here today for bilateral knee pain. Pt. advises he has experienced bilateral knee pain for 10 years and is progressively gotten worse. He states he has a constant dull ache and when he states the ache worsens with weight bearing, walking and standing. He states the left knee is worse. He states he has been experiencing popping, clicking and weakness. He states they have not given out but he is concerned they will. He was referred by Dr. Kilgore . He states he had an injection in his left knee a couple years ago in [facility]. He states he had right knee surgery about 10 years ago at [facility] but denies previous surgery on the left knee. He has been treating pain with Advil. He denies any PT. He states that Dr. Ramirez tried an injection about 2 -3 years ago but is unsure what kind of injection it was. He states that he can walk about 300ft before the left knee pain gets severe and radiates up into the hip. His left knee is starting to affect his activities. He did have a brain MRI that did show he had 2 strokes but is unsure when they occurred. He has had history of back surgery and does have lateral sided thigh pain when the knee pain gets bad. Denies radicular symptoms Ortho Exam General General: Yes no acute distress Neurologic: Yes alert and Yes oriented x3 Psychologic: Yes reasonable and appropriate Right Knee Skin/Wound: No erythema, No ecchymosis and No swelling Knee ROM: Yes ROM-Extension -20 to 0 (-8) and Yes ROM-Flexion 0-140 (108) Examination: Yes Med jt line tenderness and No Lat jt line tenderness Stability: NML: Anterior Drawer, NML: Posterior Drawer, NML: Valgus 0, NML: Valgus 30, NML: Varus 0 and NML: Varus 30 Patella Translation: 1 Patella Grind: No KNEE: 2mm medial gapping with valgus stress Left Knee Skin/Wound: No ecchymosis, No erythema and No swelling Knee ROM: Yes ROM-Extension -20 to 0 (-15) and Yes ROM-Flexion 0-140 (105) Examination: Yes med jt line tenderness, Yes Lat jt line tenderness, Yes Pain with flexion and No Moises's Test Stability: NML: Anterior Drawer, NML: Posterior Drawer, NML: Valgus 0, NML: Valgus 30 and NML: Varus 0 Apprehension with Lateral Translation: No Patella Translation: 1 Patella Grind: No KNEE: no effusion fixed va claudia deformity mild edema in lower legs Left Hip Special Tests: Yes Illiotibial band tenderness Head: Normocephalic Atraumatic Chest: symmetrical rise, non-labored breathing, no audible wheeze Abdomen: no guarding, non-rigid Supplemental Info 01/26/2024 x-ray right knee: Moderate medial compartment narrowing of note there is no sunrise view 01/26/2024 x-ray left knee: Moderate to severe medial compartment narrowing with varus deformity worse on flexion view of note there is no sunrise view Coding Level of Care Code Off vis,est,level 4 Diagnoses Right knee DJD M17.11 Left knee DJD M17.12 Abdominal obesity E65 Assessment and Plan Assessment and Plan (1) Right knee DJD: Status: Acute (2) Left knee DJD: Status: Acute (3) Abdominal obesity: Status: Acute Plan Educated patient of anatomy and etiology of both knees. Spoke with patient that his left knee has severe arthritis medial compartment with a varus deformity vs. his right knee has moderate arthritis medial compartment. His left knee is more symptomatic to him. Discussed patient that his treatment options are do nothing, NSAIDs, steroid injection, viscosupplementation injections, knee brace, glucosamine and chondroitin, weight loss, or a TKA. Spoke with patient that if he were to want a knee replacement I would recommend doing one knee at a time . He wishes to proceed with left knee arthroplasty Spoke with patient that after surgery ROM is the biggest thing he would need to work on, and he is at increased risk for postoperative stiffness given his limited preoperative range of motion therefore I do recommend that he do prehabilitation with physical therapy before surgery.. Risks, benefits and alternatives of surgery reviewed including but not limited to bleeding, infection, nerve, artery and/or tissue damage, fracture, VTE, mechanical feel of the knee, continued pain, stiffness and expected post-operative course.?Advised patient it can take up to 2 years to fully recover from a knee replacement. He does have some IT band tenderness on the left side which can be related to a stiff back and the treatment option for that would be physical therapy, and I explained surgery will not improve this. Explained the robotic technology for the knee replacement with the patient and he would also like to have the Iovera procedure done as well. Educated patient he is unable to take NSAIDs 7 days before surgery. He would also need medical clearance from his PCP. Patient wishes to proceed with a left total knee. Recently diagnosed stroke would recommend admission he is older and heavyset. Follow up for Iovera or sooner if pain, swelling, numbness or associated symptoms, or concerns develop. All questions answered. Patient in agreement of plan. Clinical Quality Measures Falls Risk Screening/Assistive Devices Have you fallen in the past year?: Yes 08/17/24 9131 <Electronically signed by Gabriel Cornelius DO> Date Gabriel Cornelius DO Cosigner Signature: Date (if applicable) CC: ~ I have examined the patient and the H&P has been reviewed. There are no clinical changes since date of exam.
[2024-10-03 10:38] LABS: Bedside Glucose 157 mg/dL (74-106)
--- NOTE | 2024-10-03 11:00 | KNEE_PTH ---
PATIENT: CANDIS JIMENEZ Jr. LOC: MS3 U#:[id number] AGE/SX: 69/M ROOM: IL312 RE10/03/[address]: Dr. Gabriel Cornelius DO : 1955 BED: 1 DIS: 10/04/2024 SPEC #: [id number] RECD: 10/03/24 14:53 STATUS: SVETLANA GARCIADc #: [id number] JULIO: 10/03/24 11:[address]: Gabriel Cornelius DEPT: SURGICAL PATHOLOGY RECD BY: Nina Valverde ENTERED: 10/04/24 09:06 SP TYPE: TOTAL KNEE OTHR DR: Dr. Marco Kilgore MD Tissues: Knee, NOS Procedures: Decalcification bone/plaque Surgery Specimen Level IV HEADER OPERATION: Left total knee replacement robotic arm assist PRE-OP DIAGNOSIS: Left knee degenerative joint disease TISSUE SUBMITTED: Left knee bone and tissue MICROSCOPIC DIAGNOSIS Bone and tissue of left knee, total knee resection: Severe degenerative joint disease. AM: 10/08/2024 MICROSCOPIC DESCRIPTION Slides are reviewed. GROSS DESCRIPTION Received is one container designated bone and soft tissue left knee. The specimen consists of multiple fragments of lomeli-yellow bone measuring in aggregate 9.0 x 8.0 x 3.0 cm. No soft tissue is identified. A number of bony fragments contain articular surfaces consistent with tibial plateau and femoral condyle and displaying prominent osteophyte formation, eburnation and bone erosion. Mold Preparer sections are submitted in one cassette after decalcification. / PEACE. 10/04/2024 TC:5 CPT: 50262, 22689
[2024-10-03] MEDS: Cefazolin 2 GM in Syringe IV ×3 (11:05→23:17)
[2024-10-03] MEDS: TXA 1000mg in NS100 100ml (IVPB at Incision) 660 MG IV (11:15)
[2024-10-03] MEDS: dexAMETHasone 10 MG/ML Vial IV (11:28)
[2024-10-03] MEDS: 0.9% Normal Saline (Pres. free 10 ML Vial ×2 (12:05→12:43)
[2024-10-03] MEDS: Bupivacaine 0.5% PF 10 ML VIAL (12:43)
[2024-10-03] MEDS: Epinephrine (1 mg/ml) 1 MG/ML VIAL (12:43)
[2024-10-03] MEDS: dexAMETHasone 4 MG/ML Vial (12:43)
[2024-10-03] MEDS: TXA 1000mg in NS100 100ml (IVPB at Closure) 660 MG IV (13:07)
--- NOTE | 2024-10-03 13:27 | PCM.OPRPT ---
Operative Report (Standard) Operative Information Surgery/Procedure Performed: Left total knee Surgeon: Gabriel Cornelius Date of Procedure: 10/03/24 Procedure Start Time: 11:29 Procedure Stop Time: 13:20 Pre-Operative Diagnosis: Left knee DJD Post-Operative Diagnosis: Same Select all DRAINS/GRAFTS/IMPLANTS that apply: None Type of Anesthesia: Spinal Estimated Blood Loss: 175 Specimen collected: Yes Description of specimen(s) removed: Bone Description of surgery: Preoperative diagnosis: Left knee DJD Postoperative diagnosis: Same Procedure: Left total knee arthroplasty CT guided Robotic Assisted Implant: [place] triathlon press fit, femoral component size 4, tibial baseplate size 5, asymmetric patella size 35, polyethylene X3 size 9 CS Anesthesia: Spinal with adductor canal block Tourniquet time: 13 minutes at 300 mmHg Complications: None Condition: Stable to PACU Estimated blood loss: 175 cc Rejoiner Thong Ken. My physician assistant producer was a vital part of this case. He was important in appropriate retraction during the case, and protection of soft tissues during procedure. His intimate knowledge of the case and my steps aided in safe and expedient completion of the procedure as well as appropriate position of the extremity during the case. He was also vital in assisting with closure under my direct supervision. Indication for procedure: This is a 69-year-old male with long standing degenerative joint disease of the knee who has failed conservative treatment and wished to proceed with elective total knee arthroplasty. Risk benefits and alternatives were reviewed including; risk of bleeding, infection, nerve artery and tissue damage, continued pain, postoperative stiffness, venous thromboembolism, need for postoperative rehabilitation, mechanical feel to the knee, and expected postoperative course. The pre- operative CT and templating was performed with component sizing. Procedure: The patient was met in the preoperative holding area. The operative extremity was identified by both patient and physician and was marked. Patient was met by anesthesia. An adductor canal block was placed by anesthesia postoperatively the patient was brought back to the operating room on a wheeled cart and transferred to the operating table in the supine position. Anesthesia was started. A well-padded tourniquet was placed on the operative extremity. The patient was prepped and draped in the usual sterile fashion. A timeout was called to ensure the proper patient procedure and extremity were being contemplated. An esmarch was used to exsanguinate the extremity. The tourniquet was inflated. A 10 blade scalpel was used to make a midline incision down through the skin and subcutaneous tissue. Skin retractors placed. Bovie and Aquamantis were used to perform meticulous hemostasis. full-thickness flaps were elevated medial and lateral along the joint capsule. A deep blade scalpel was used to perform a medial parapatellar arthrotomy. The knee was brought to full extension. A bovie was used to release the soft tissues off the most proximal aspect of the medial tibial plateau, a three-quarter inch curved osteotome was also used in this process. The infrapatellar fat pad was excised. The suprapatellar fat pad was excised partially anteriorolateraly and portion the anterioromedial pad was elevated from the femur. At this point our intra-articular femoral array was placed at a 45 degree angle proximal and posterior to the medial epicondyle. femoral checkpoint was placed at this time. [Our tibial array was placed extra incisional with a 15 blade scaple, and pins were placed and attached to the tibial array , tibial checkpoint was placed in the proximal tibial metaphysis. Tourniquet was let down. At this point registration sanz were taken throughout the knee . Once the knee was registered we then tensioned the medial and lateral ligaments in extension and 90 degrees of flexion. We then used these numbers to adjust our components within parameters to balance the knee in both flexion and extension once this was done on our monitor we then proceeded with using the robotic arm to make our tibial plateau cut, anterior and posterior chamfer and distal femur cuts. we removed the cut fragments with the use of a bovie and Elieser, we did use a lamina cage manager to insure we visualized and removed all posterior osteophytes and at this time also used the Aquamantis on the posterior joint capsule. we then trialed and achieved the desired plan with a well-balanced knee. we used the green probe to tyler the corresponding tibial rotation based on our CT template. Lug holes were drilled in the femur the tibia preparation was completed with the appropriate sized base plate pinned based on previous rotation tyler. An appropriate sized fin punch was used on the tibia and 4 corner drill was used for the press fit component and the patella was prepared by first using a caliper to ensure sufficient bone stock and a patellar reamer to remove the desired amount of bone. lug holes drilled for an asymmetric poly. We then brought the knee through range of motion with excellent patellar tracking. We thoroughly irrigated the knee. Trial components were removed a posterior capsular injection was preformed with our standard cocktail. In addition the aqua Mantis was also used to aid in hemostasis. Betadine rinse was allowed to sit and washed out completely. Components were press-fit into place. Aricept rinse was then used followed by several more liters of irrigation after it was allowed to sit. The joint capsule was closed with #1 Ethibond [id number] in the upper part of the arthrotomy and #1 Vicryl in the lower part of the arthrotomy. , Followed by 2-0 Vicryl in the subcutaneous tissues with flores in the skin. Arrays and checkpoints were removed prior to closure all counts were correct stab incisions were closed with a staple standard dressing in the form of Mepilex AG for the main incision and a small Mepilex over the pin holes. Thigh-high ASIYA hose applied over top of dressing. Patient tolerated the procedure well and was directed to PACU in stable condition . There were no intraoperative complications. Surgical Findings: DJD knee Corporate Relations Manager customs and border protection officer: Yes Scroll Machine Operator: Thong Ken Tasks completed by assistant manager/embalmer: Closing Complications Complications: No
--- NOTE | 2024-10-03 13:28 | RAD_ITS ---
STUDY: X-RAY - LEFT KNEE REASON FOR EXAM: Male, 69 years old. Post op -- AP and Lateral xray of operative knee in PACU TECHNIQUE: 2 view(s) of the knee. COMPARISON: Comparison is made with prior study of January 26, 2024. FINDINGS: Normal visualized distal femur. Normal visualized proximal tibia and fibula. Normal proximal tibiofibular articulation. The patient is status post total knee replacement. There is good alignment. Postoperative soft tissue changes. RAD/Knee 1 or 2 Views IMPRESSION: Status post left total knee replacement. There is good alignment. Postoperative soft tissue changes. Electronically Signed: Antonio Landrum MD at 14:06 EST ,
--- NOTE | 2024-10-03 13:39 | PCM.POST.ANE ---
Anesthesia: Postop Eval I Current Vital Signs Temperature: 97.2 F Pulse Rate: 76 Blood Pressure: 108/59 Respiratory Rate: 18 Pulse Ox: 93 Oxygen Delivery Method: Nasal Cannula Oxygen Flow Rate (L/min): 4 EtCo2 (Normal 35-45 , high quality CPR 10-20 & ROSC>/=40mmHg): 36 Assessment Airway patent: Yes Spontaneous unlabored respirations: Yes Mental status: Awake and Calm nausea: No Vomiting: No Anesthesia Complication: No Fluid Hydration Crystalloid volume administer (ml): 1,000 Total IV fluid infused: 1,000 Progress Note Anesthesia document: Postop Eval 1 completed: Yes
[2024-10-03] MEDS: Lactated Ringers 1,000 ML 125 ML IV (13:46)
--- NOTE | 2024-10-03 16:46 | POSTOPAN2_ITS ---
Anesthesia Postop Eval I Sum Postop Eval Completion status Anesthesia document: Postop Eval 1 completed: Yes Anesthesia Postop Eval I Summary Anesthesia Postop Eval I Summary: Anesthesia Postop Eval I: Assessment Summary Airway patent Yes 10/03/24 13:40 PRODUCT SAFETY AND STANDARDS ENGINEER.CSIR Spontaneous unlabored Yes 10/03/24 13:40 PRODUCT SAFETY AND STANDARDS ENGINEER.CSIR respirations Mental status Awake,Calm 10/03/24 13:40 PRODUCT SAFETY AND STANDARDS ENGINEER.CSIR nausea No 10/03/24 13:40 PRODUCT SAFETY AND STANDARDS ENGINEER.CSIR Vomiting No 10/03/24 13:40 PRODUCT SAFETY AND STANDARDS ENGINEER.CSIR Anesthesia Postop Eval I: Fluid Summary Crystalloid volume administer 1,000 10/03/24 13:40 PRODUCT SAFETY AND STANDARDS ENGINEER.CSIR (ml) Colloids volume administered ( ml) Blood Product volume administered (ml) Total IV fluid infused 1,000 10/03/24 13:40 PRODUCT SAFETY AND STANDARDS ENGINEER.CSIR Anesthesia Postop Eval I: Summary Notes Anesthesia Complication No 10/03/24 13:40 PRODUCT SAFETY AND STANDARDS ENGINEER.CSIR Anesthesia Complication Comment: Post-operative progress note Anesthesia: Postop Eval II Evaluation Mental status: Awake and Calm Pain Level: 1 nausea: No Vomiting: No Complications Anesthesia Complication: No
--- NOTE | 2024-10-03 16:46 | PCM.POSTANE2 ---
Anesthesia Postop Eval I Sum Postop Eval Completion status Anesthesia document: Postop Eval 1 completed: Yes Anesthesia Postop Eval I Summary Anesthesia Postop Eval I Summary: Anesthesia Postop Eval I: Assessment Summary Airway patent Yes 10/03/24 13:40 IRONING PLEATER.CSIR Spontaneous unlabored Yes 10/03/24 13:40 IRONING PLEATER.CSIR respirations Mental status Awake,Calm 10/03/24 13:40 IRONING PLEATER.CSIR nausea No 10/03/24 13:40 IRONING PLEATER.CSIR Vomiting No 10/03/24 13:40 IRONING PLEATER.CSIR Anesthesia Postop Eval I: Fluid Summary Crystalloid volume administer 1,000 10/03/24 13:40 IRONING PLEATER.CSIR (ml) Colloids volume administered ( ml) Blood Product volume administered (ml) Total IV fluid infused 1,000 10/03/24 13:40 IRONING PLEATER.CSIR Anesthesia Postop Eval I: Summary Notes Anesthesia Complication No 10/03/24 13:40 IRONING PLEATER.CSIR Anesthesia Complication Comment: Post-operative progress note Anesthesia: Postop Eval II Evaluation Mental status: Awake and Calm Pain Level: 1 nausea: No Vomiting: No Complications Anesthesia Complication: No
[2024-10-03] MEDS: Tamsulosin HCl 0.4 MG Capsule 0.8 MG PO (20:48)
[2024-10-03] MEDS: Atorvastatin Calcium 40 MG Tablet PO (20:49)
[2024-10-03] MEDS: Senna/Docusate Sodium 1 Tablet 2 TABLET PO (20:49)
[2024-10-03] MEDS: 0.9% Saline Lock 10 ML Syringe IV (23:18)
[2024-10-04 01:14] VITALS: BP 131/79; PULSE 70; RESP 18; TEMP 36.8; O2SAT 96
[2024-10-04 05:00] VITALS: BP 149/79; PULSE 72; RESP 18; TEMP 36.8; O2SAT 94
[2024-10-04] MEDS: 0.9% Saline Lock 10 ML Syringe IV (05:52)
[2024-10-04] MEDS: Acetaminophen 500 MG Tablet 1000 MG PO (05:52)
[2024-10-04] MEDS: APIXABAN 2.5 MG TABLET (WCH) PO (05:52)
[2024-10-04] MEDS: Cefazolin 2 GM in Syringe IV (05:52)
[2024-10-04 07:26] LABS: Hemoglobin 13.2 g/dL (13.0-16.5); Mean Corpuscular Volume 90.9 fL (80-94); Platelet Count 276 K/mm3 (150-450); RBC Distribution Width CV 12.9 % (11.6-14.6); RBC Distribution Width SD 42.7 fl (35.1-43.9); White Blood Count 13.3 K/mm3 (4.4-11.0)
[2024-10-04 07:48] LABS: Anion Gap 5 (5-15); BUN 16 mg/dL (7-18); BUN/Creat Ratio 14.2 RATIO (10-20); Calcium,Total 8.5 mg/dL (8.5-10.1); Chloride 108 mmol/L (98-107); Creatinine, Serum 1.13 mg/dL (0.70-1.30); EST Glomerular Filtration Rate 68 mL/min (>60); Est Glom Filt Rate - Afr Amer 82 mL/min (>60); Glucose 145 mg/dL (74-106); Potassium 4.2 mmol/L (3.5-5.1); Sodium Level 137 mmol/L (136-145)
[2024-10-04] MEDS: Loratadine 10 MG Tablet PO (08:19)
[2024-10-04] MEDS: Senna/Docusate Sodium 1 Tablet 2 TABLET PO (08:19)
[2024-10-04] MEDS: Pantoprazole Sodium 40 MG Tablet PO (08:19)
[2024-10-04] MEDS: amLODIPine 5 MG Tablet PO (08:19)
[2024-10-04] MEDS: Cholecalciferol (VIT D3) 25 MCG TABLET (1,000 UNITS) PO (08:19)
[2024-10-04 09:14] VITALS: BP 128/76; PULSE 67; RESP 18; TEMP 36.6; O2SAT 94
--- NOTE | 2024-10-04 10:17 | PCM.PN.ORT ---
Subjective Subjective Seen and examined. Pain controlled ambulating very well with physical therapy requesting to be discharged home. No fevers chills nausea vomiting shortness of breath or chest pain Objective Data Objective Data Vital Signs: Vital Signs Temp Pulse Resp BP Pulse Ox O2 Del Method O2 Flow Rate 98 F 67 18 128/76 H 94 Room Air 2 10/04/24 09:14 10/04/24 09:14 10/04/24 09:14 10/04/24 09:14 10/04/24 09:14 10/04/24 09:14 10/04/24 01:14 Oxygen Flow Rate (L/min) 2 Oxygen Delivery Method Room Air Weight: 222 lb 10.67 oz Body Mass Index (BMI) 34.9 Intake & Output: Intake and Output for Last 24 Hours 10/02/24 10/03/24 10/04/24 23:59 23:59 23:59 Intake Total 2632 / 2632 470 / 470 Output Total 500 / 500 Balance 2632 / 2632 -30 / -30 Lab / Micro Data 10/04/24 06:50 10/04/24 06:50 Labs: Laboratory Results - last 24 hr 10/03/24 10:15: POC Glucose 157 H 10/04/24 06:50: WBC 13.3 H, RBC 4.40 L, Hgb 13.2, Hct 40.0, MCV 90.9, MCH 30.0, MCHC 33.0, RDW Std Deviation 42.7, RDW Coeff of Paul 12.9, Plt Count 276, MPV 9.0, Sodium 137, Potassium 4.2, Chloride 108 H, Carbon Dioxide 24.0, Anion Gap 5, BUN 16, Creatinine 1.13, Estim Creat Clear Calc 67.90, Est GFR (MDRD) Af Amer 82, Est GFR (MDRD) Non-Af 68, BUN/Creatinine Ratio 14.2, Glucose 145 H, Calcium 8.5 Micro: Microbiology 09/19/24 13:36 Swab (Method) Nasal Screen MRSA/MSSA - Final Radiography Diagnostic Testing: Radiology Impression Knee X-Ray 10/03/24 13:28 IMPRESSION: Status post left total knee replacement. There is good alignment. Postoperative soft tissue changes. Electronically Signed: Antonio Landrum MD at 14:06 EST , Physical Exam Const alert, oriented x3 and no apparent distress General Appearance: cooperative and well developed Extremity Extremity Narrative: Left knee dressing clean dry intact compartment soft neurovascular intact EHL tibialis anterior gastrocsoleus intact sensation to light touch 2 out of 4 pedal pulse Assessment & Plan Assessment/Plan (1) S/P total knee arthroplasty: QUALIFIERS: Laterality: left Qualified Code(s): Z96.652 - Presence of left artificial knee joint PLAN: Plan Postop day #1 left total knee arthroplasty PT OT weightbearing as tolerated Pain control oxycodone Tylenol DVT prophylaxis SCDs ASIYA hose Eliquis 2.5 mg twice daily Patient requesting to be discharged home he is doing surprisingly very well I have no concerns
--- NOTE | 2024-10-04 10:19 | DCINST_ITS ---
Discharge Instructions Diet Discharge Diet: No restrictions Dressing / Incision Call your doctor if you observe: Shortness of breath and Chest pain Additional Dressing/Incision Instructions:: Ice and elevate lower extremities 2 weeks while not ambulating. Ambulation is encouraged. Weight bearing as tolerated. Use assistive devise for stability. Encourage FULL knee extension and flexion 1 time EVERY time you get up and down and MULTIPLE times per day. No showering until 72 hours after surgery. May begin showering postop day #3. Remove the dressing prior to shower and gently wash with warm water and antibacterial soap then pat dry and place abdominal pad (or plain gauze) and ASIYA hose over top. This is to be done daily. Do not submerge for 3 weeks. If not showering daily after the initial 72 hours then you must clean incision and change dressing daily after the dressing comes off, must come off by 7 days postop. Do not allow animals near the incision area. Keep clean. Follow anti- coagulation recommendations as prescribed. Do not take any NSAIDs while on blood thinner. Do not take any additional narcotic pain medication other than what was prescribed on your surgery day without discussing with physician. Narcotic medication can be addictive. Do not drink alcohol while taking narcotics. Supplement narcotic prescription with acetaminophen 1000 mg 4 times a day. Start physical therapy. If you are not currently scheduled for physical therapy or you are unsure of appointment time please call office [facility] to arrange. Call Dr. Cornelius with any concerns. Follow Up Care Please Follow Up With: Gabriel Cornelius DO When: 2 weeks Test Results: Test results from this visit will be discussed in further detail at your follow- up appointment, if applicable. Discharge Plan Admission Admit Date/Time: 10/03/24 08:51 Primary Reason for Your Visit: Left total knee arthroplasty Attending Provider: Gabriel Cornelius Primary Care Provider: Marco Kilgore Chi Discharge Orders/Prescriptions Prescriptions: New oxycodone 5 mg tablet 5 - 10 mg PO Q4H PRN (Reason: pain) 7 Days Qty: 60 0RF acetaminophen 500 mg tablet 1,000 mg PO Q6H Qty: 90 2RF Eliquis 2.5 mg tablet 2.5 mg PO BID 21 Days Qty: 42 0RF Continued omeprazole 40 mg capsule,delayed release(DR/EC) 40 mg PO DAILY tamsulosin [Flomax] 0.4 mg capsule 0.8 mg PO QHS levothyroxine [Synthroid] 200 mcg tablet 400 mcg PO SA amlodipine 5 mg tablet 5 mg PO QDAY cholecalciferol (vitamin D3) 25 mcg (1,000 unit) tablet 25 mcg PO QDAY aspirin [Adult Low Dose Aspirin] 81 mg tablet,delayed release (DR/EC) 81 mg PO QDAY atorvastatin 40 mg tablet 40 mg PO QHS loratadine [Allerclear] 10 mg tablet 10 mg PO DAILY Referrals / Follow Up: Marco Kilgore Chi, MD [Primary Care Provider] - Disposition Disposition (needs filled in before D/C Order can be placed): Home, Self Care
--- NOTE | 2024-10-04 10:24 | DS.PCM_ITS ---
Providers Date of Admission: 10/03/24 Primary Care Physician: Dr. Marco Kilgore MD Reason For Visit: ERAS Left Total Knee Replacement Ro Diagnosis Discharge Diagnosis (1) S/P total knee arthroplasty: Status: Acute Code(s): Z96.659 - Presence of unspecified artificial knee joint Qualifiers: Laterality: left Qualified Code(s): Z96.652 - Presence of left artificial knee joint Plan Postop day #1 left total knee arthroplasty PT OT weightbearing as tolerated Pain control oxycodone Tylenol DVT prophylaxis SCDs ASIYA hose Eliquis 2.5 mg twice daily Patient requesting to be discharged home he is doing surprisingly very well I have no concerns Medications at Discharge Home Medications omeprazole 40 mg capsule,delayed release 40 mg PO DAILY GERD 12/02/22 amlodipine 5 mg tablet 5 mg PO QDAY BP 08/14/24 aspirin 81 mg tablet,delayed release (Adult Low Dose Aspirin) 81 mg PO QDAY SUPPLEMENT 08/14/24 atorvastatin 40 mg tablet 40 mg PO QHS CHOLESTEROL 08/14/24 cholecalciferol (vitamin D3) 25 mcg (1,000 unit) tablet 25 mcg PO QDAY SUPPLEMENT 08/14/24 levothyroxine 200 mcg tablet (Synthroid) 400 mcg PO SA THYROID 08/14/24 tamsulosin 0.4 mg capsule (Flomax) 0.8 mg PO QHS PROSTATE 08/14/24 loratadine 10 mg tablet (Allerclear) 10 mg PO DAILY ALLERGIES 09/19/24 acetaminophen 500 mg tablet 1,000 mg (2 x 500 mg) PO Q6H #90 tabs 10/04/24 apixaban 2.5 mg tablet (Eliquis) 2.5 mg PO BID 21 days #42 tabs 10/04/24 oxycodone 5 mg tablet 5 - 10 mg (1 - 2 x 5 mg) PO Q4H PRN pain 7 days #60 tabs 10/04/24 Hospital Course Operations total knee replacement Summary of Care Provided Hospital Course: Who has long history of degenerative joint disease to the knee who has failed conservative treatment and wished to undergo elective total knee arthroplasty. Patient underwent the aformentioned procedure on the admission date without any intraoperative complications. Patient did receive pre-and postoperative antibiotics which were discontinued within 23 hours postoperatively. Patient did receive [spinal anesthesia as well as an adductor canal block postoperatively]. pain was controlled with IV and transition to p.o. pain medication Patient will be discharged home with oxycodone and will continue Tylenol as well. Patient had minimal intraoperative blood loss and 2gm tranexamic acid was administered there was no need for postoperative blood transfusion Patients vital signs remained stable. Patient was started on both mechanical and chemical DVT per prophylaxis postoperatively in the form of SCDs ASIYA hose and [Eliquis 2.5 mg twice daily for which she will continue for 3 additional weeks post hospital discharge given he did have a previous DVT in the left lower extremity. thigh high asiay hose placed over top of the meplix silver dressing. This should be removed 72 hrs post operatively and showering begun daily at that time with warm water and antibacterial soap. not to submerge for 3 weeks. To change dressing daily after first dressing change. Patient will follow-up in the office in 2 weeks. No intrahospital complications. Weight / BMI Weight Weight: 222 lb 10.67 oz Body Mass Index (BMI) 34.9 ABG / Lab / Microbiology Data 10/04/24 06:50 10/04/24 06:50 Laboratory: Laboratory Results - last 24 hr 10/03/24 10:15: POC Glucose 157 H 10/04/24 06:50: WBC 13.3 H, RBC 4.40 L, Hgb 13.2, Hct 40.0, MCV 90.9, MCH 30.0, MCHC 33.0, RDW Std Deviation 42.7, RDW Coeff of Paul 12.9, Plt Count 276, MPV 9.0, Sodium 137, Potassium 4.2, Chloride 108 H, Carbon Dioxide 24.0, Anion Gap 5, BUN 16, Creatinine 1.13, Estim Creat Clear Calc 67.90, Est GFR (MDRD) Af Amer 82, Est GFR (MDRD) Non-Af 68, BUN/Creatinine Ratio 14.2, Glucose 145 H, Calcium 8.5 Microbiology: Microbiology 09/19/24 13:36 Swab (Method) Nasal Screen MRSA/MSSA - Final Radiography Diagnostic Testing: Radiology Impression Knee X-Ray 10/03/24 13:28 IMPRESSION: Status post left total knee replacement. There is good alignment. Postoperative soft tissue changes. Electronically Signed: Antonio Landrum MD at 14:06 EST , D/C Instructions Discharge Diet: No restrictions Call your doctor if you observe: Shortness of breath and Chest pain Additional Dressing/Incision Instructions: Ice and elevate lower extremities 2 weeks while not ambulating. Ambulation is encouraged. Weight bearing as tolerated. Use assistive devise for stability. Encourage FULL knee extension and flexion 1 time EVERY time you get up and down and MULTIPLE times per day. No showering until 72 hours after surgery. May begin showering postop day #3. Remove the dressing prior to shower and gently wash with warm water and antibacterial soap then pat dry and place abdominal pad (or plain gauze) and ASIYA hose over top. This is to be done daily. Do not submerge for 3 weeks. If not showering daily after the initial 72 hours then you must clean incision and change dressing daily after the dressing comes off, must come off by 7 days postop. Do not allow animals near the incision area. Keep clean. Follow anti- coagulation recommendations as prescribed. Do not take any NSAIDs while on blood thinner. Do not take any additional narcotic pain medication other than what was prescribed on your surgery day without discussing with physician. Narcotic medication can be addictive. Do not drink alcohol while taking narcotics. Supplement narcotic prescription with acetaminophen 1000 mg 4 times a day. Start physical therapy. If you are not currently scheduled for physical therapy or you are unsure of appointment time please call office [facility] to arrange. Call Dr. Cornelius with any concerns. Please Follow Up With: Gabriel Cornelius DO When: 2 weeks Meaningful Use Info Meaningful Use Meaningful Use Diagnoses (Choose all that apply): None applicable Ischemic Stroke Statin Dosing Therapy Reference: STATIN DOSE THERAPY REFERENCE: * Patients > 75 years receive moderate or high dose statin therapy. * Patients 75 years or YOUNGER should receive HIGH intensity statin dose unless contraindicated. You will be required to document reason for non-treatment if statin daily dose does not meet guidelines. HIGH DOSE STATIN THERAPY DAILY Atorvastatin > than or = to 40 mg Rosuvastatin > than or = to 20 mg Amlodipine + Atorvastatin > than or = to 2.5/40 mg Ezetimibe + Simvastatin 10/80 mg Simvastatin 80mg Discharge Plan Admission Admit Date/Time: 10/03/24 08:51 Primary Reason for Your Visit: Left total knee arthroplasty Attending Provider: Gabriel Cornelius Primary Care Provider: Marco Kilgore Chi Discharge Orders/Prescriptions Prescriptions: New oxycodone 5 mg tablet 5 - 10 mg PO Q4H PRN (Reason: pain) 7 Days Qty: 60 0RF acetaminophen 500 mg tablet 1,000 mg PO Q6H Qty: 90 2RF Eliquis 2.5 mg tablet 2.5 mg PO BID 21 Days Qty: 42 0RF Continued omeprazole 40 mg capsule,delayed release(DR/EC) 40 mg PO DAILY tamsulosin [Flomax] 0.4 mg capsule 0.8 mg PO QHS levothyroxine [Synthroid] 200 mcg tablet 400 mcg PO SA amlodipine 5 mg tablet 5 mg PO QDAY cholecalciferol (vitamin D3) 25 mcg (1,000 unit) tablet 25 mcg PO QDAY aspirin [Adult Low Dose Aspirin] 81 mg tablet,delayed release (DR/EC) 81 mg PO QDAY atorvastatin 40 mg tablet 40 mg PO QHS loratadine [Allerclear] 10 mg tablet 10 mg PO DAILY Referrals / Follow Up: Marco Kilgore Chi, MD [Primary Care Provider] - Disposition Disposition (needs filled in before D/C Order can be placed): Home, Self Care
--- NOTE | 2024-10-04 10:31 | CASEMGMT ---
Addendum entered by Doreen Tolliver 10/04/24 11:24: Faxed order at this time. Addendum entered by Doreen Tolliver 10/04/24 11:22: Received notification from pt nurse that pt needed RN CM in room. RN CM to room, pt dtr states that [facility] called and stated pt needed to go to [place] for an eval again. TC to Symone at [place], she states to call [facility] for the initial visit. TC to , spoke with Shirley, made appt for 10/09/24 at 9am. RN JOVANY back into pt room, pt and dtr aware. Updated dc instructions. Original Note: RN JOVANY Assessment: Face to Face with pt for initial transition planning/care coordination assessment. LAUREN MANZO introduced self and role at [facility], pt voices understanding and consents to assessment. Pt is A&O x4 and answers all questions appropriately at this time. Pt sitting up in chair in no distress with dtr at bedside. Pt agreeable to assessment with dtr present. Care providers, pharmacy, and demographics verified/updated. Admitting Dx: L TKR Strata Score: 1 PCP:Jame Specialists:Adryan, ortho; [facility], cardio Preferred Pharmacy: [facility] for this stay Insurance: [facility], MCR Supp Prescription Benefit: yes LNOK: Jessiac Gregorio, dtr; Hanna Domínguez, Living Arrangements: Pt lives with , dtr, son in law and 3 grandchildren in a 3 story home with 2 steps to enter with a rail. Pt reports he is I in ADLs and denies concerns at home. Pt family to assist as needed. Transportation: Pt drives self and denies concerns with transportation. Pt family to transport pt until he can drive again. DME:FWW- dtr just borrowed for pt, elevated toilet seat, shower chair, CPAP HHC/SNF: Denies hx of Pt states no concerns with going home at time of dc. Pt states that he has had a PT eval in [place] and wants to do his treatments for therapy in [place] at [place]. Pt states no further concerns/needs. CM to follow. Advised pt to ask CM if any further question/concerns/needs arise, voices understanding. Pt Goal: Home with outpt therapy Plan: Home with outpt therapy Jono AGUILAR CM TC to [facility] in [place], spoke with Symone, she states pt did have a PT eval and he could come to [place] for treatments. Set up an appt for tomorrow at 3:30pm. Updated pt and dtr and placed on dc instructions. TC to [facility] and cost for eliquis is $76.18. Pt states this is affordable to him.
--- NOTE | 2024-10-04 11:43 | PHA.DC_ITS ---
Pharmacy [facility] has performed discharge medication reconciliation and counseling for this patient. 1. ACETAMINOPHEN 1000MG PO Q6H 2. APIXABAN 2.5MG PO BID X 21 DAYS 3. OXYCODONE 5-10MG PO Q4H PRN PAIN The patient's discharge medication list was reviewed for discrepancies and discrepancies were resolved. The patient was counseled on the following discharge medications and changes in medications for homegoing were reviewed. The Reason for Use, instructions for use, and potential side effects were reviewed for all new medications. The patient's questions regarding all of their medications were answered. The patient was able to verbally demonstrate an understanding of their discharge medications. Patient counseled by pharmacy operations coordinatorDesmond. Medications at Discharge Home Medications omeprazole 40 mg capsule,delayed release 40 mg PO DAILY GERD 12/02/22 amlodipine 5 mg tablet 5 mg PO QDAY BP 08/14/24 aspirin 81 mg tablet,delayed release (Adult Low Dose Aspirin) 81 mg PO QDAY SUPPLEMENT 08/14/24 atorvastatin 40 mg tablet 40 mg PO QHS CHOLESTEROL 08/14/24 cholecalciferol (vitamin D3) 25 mcg (1,000 unit) tablet 25 mcg PO QDAY SUPPLEMENT 08/14/24 levothyroxine 200 mcg tablet (Synthroid) 400 mcg PO SA THYROID 08/14/24 tamsulosin 0.4 mg capsule (Flomax) 0.8 mg PO QHS PROSTATE 08/14/24 loratadine 10 mg tablet (Allerclear) 10 mg PO DAILY ALLERGIES 09/19/24 acetaminophen 500 mg tablet 1,000 mg (2 x 500 mg) PO Q6H #90 tabs 10/04/24 apixaban 2.5 mg tablet (Eliquis) 2.5 mg PO BID 21 days #42 tabs 10/04/24 oxycodone 5 mg tablet 5 - 10 mg (1 - 2 x 5 mg) PO Q4H PRN pain 7 days #60 tabs 10/04/24
== END 2024-10-04 11:39 | disposition home or self-care (01) | DRG 470 ==
PROVIDERS: Anesthesiology; Admitting Provider Orthopaedic Surgery; PCP Family Medicine Geriatric Medicine; Referring Provider Orthopaedic Surgery; Visit Provider Orthopaedic Surgery
PROC: 0SRD0JZ Replacement of Left Knee Joint with Synthetic Substitute, Open Approach (ICD-10-PCS; CPT 27447; principal; 2024-10-03 10:30)
DX: M17.0 Bilateral primary osteoarthritis of knee (principal); E78.5 Hyperlipidemia, unspecified; I10 Essential (primary) hypertension; Z79.01 Long term (current) use of anticoagulants
CPT/HCPCS: 36415; 73560; 80048; 82962; 82985; 83036; 83735; 84443; 85027; 86850; 86900; 86901; 87077; 87081; 88305; 88311; 97162; 97166; C1776; J7120; A4216; J2405; J3475; J3490

== ENCOUNTER → 2024-10-10 | Outpatient (CLI) | payer MEDICARE, OTHER, SELFPAY ==
--- NOTE | 2024-10-10 14:10 | VDLE_ITS ---
Reason For Study: HX DVT RIGHT LEFT CFV is compressible, spontaneous, phasic, GSV is normal. competent and demonstrates normal CFV is compressible, spontaneous, phasic, augmentation. competent, and demonstrates normal Procedure augmentation. This is a venous duplex using B-mode, color FV is compressible, spontaneous, phasic, flow and spectral Doppler. competent and demonstrates normal Exam performed in department. augmentation. A preliminary report was called and/or faxed POP V is compressible, spontaneous, phasic, to Dr. Kilgore. competent and demonstrates normal augmentation. T/P Trunk is compressible. PTV is compressible. LT PerV is compressible. VL/Venous Duplex US, Unilateral Interpretation Summary Deep veins of the left lower extremity are patent and compressible segmentally. There is no evidence of left lower extremity deep vein thrombosis. The left great saphenous vein meli ears patent and compressible segmentally. Ordering Physician: Marco Kilgore Chi Referring Physician: Marco Kilgore Chi Performed By: Damien Underwood RVT and Student
[2024-10-10 14:14] LABS: Absolute Lymphocyte Count 1.55 X10^3/uL (0.83-4.51); Absolute Neutrophil Count 7.2 X10^3/uL (2.0-7.7); Basophil# 0.03 X10^3/uL; Basophil% 0.3 % (0-1); Eosinophil# 0.58 X10^3/uL; Eosinophils% 5.6 % (0-5); Hemoglobin 13.8 g/dL (13.0-16.5); Lymphocyte # 1.55 X10^3/ul (0.83-4.51); Lymphocyte % 14.9 % (19-41); Mean Corp Hgb Conc 32.9 g/dL (32-36); Mean Corpuscular Hgb 29.9 pg (27.0-32.0); Mean Corpuscular Volume 90.9 fL (80-94); Mean Platelet Vol. 8.1 fl (6.2-12.0); Monocyte# 0.97 X10^3/uL; Monocyte% 9.3 % (0-10); NRBC Flagged by Analyzer 0 % (0-5); Neutrophil # 7.23 X10^3/uL (2.7-7.7); Neutrophil % 69.4 % (47-70); Platelet Count 404 K/mm3 (150-450); RBC Distribution Width CV 13.2 % (11.6-14.6); RBC Distribution Width SD 43.7 fl (35.1-43.9); Red Blood Count 4.62 M/mm3 (4.6-6.2); White Blood Count 10.4 K/mm3 (4.4-11.0)
== END | disposition home or self-care (01) ==
PROVIDERS: PCP Family Medicine Geriatric Medicine; Referring Provider Family Medicine Geriatric Medicine; Visit Provider Family Medicine Geriatric Medicine
DX: I10 Essential (primary) hypertension (principal); N39.0 Urinary tract infection, site not specified; R35.0 Frequency of micturition; Z86.718 Personal history of other venous thrombosis and embolism
CPT/HCPCS: 36415; 85025; 87086; 87088; 93971

== ENCOUNTER → 2025-01-28 | Outpatient (CLI) | payer MEDICARE, OTHER, SELFPAY ==
[2025-01-28 09:41] LABS: Absolute Lymphocyte Count 1.28 X10^3/uL (0.83-4.51); Absolute Neutrophil Count 3.6 X10^3/uL (2.0-7.7); Basophil# 0.04 X10^3/uL; Basophil% 0.7 % (0-1); Eosinophil# 0.24 X10^3/uL; Eosinophils% 4.2 % (0-5); Hematocrit 47.3 % (40-54); Hemoglobin 15.6 g/dL (13.0-16.5); Lymphocyte # 1.28 X10^3/ul (0.83-4.51); Lymphocyte % 22.2 % (19-41); Mean Corpuscular Hgb 29.3 pg (27.0-32.0); Mean Corpuscular Volume 88.9 fL (80-94); Mean Platelet Vol. 8.8 fl (6.2-12.0); Monocyte# 0.56 X10^3/uL; Monocyte% 9.7 % (0-10); NRBC Flagged by Analyzer 0 % (0-5); Neutrophil # 3.63 X10^3/uL (2.7-7.7); Neutrophil % 62.9 % (47-70); Platelet Count 291 K/mm3 (150-450); RBC Distribution Width CV 13.2 % (11.6-14.6); RBC Distribution Width SD 42.9 fl (35.1-43.9); Red Blood Count 5.32 M/mm3 (4.6-6.2); White Blood Count 5.8 K/mm3 (4.4-11.0)
[2025-01-28 11:13] LABS: ALB/GLOB Ratio 1.4 RATIO (0.9-2.4); AST(SGOT) 27 U/L (<=37); Alanine Aminotransfer ALT/SGPT 17 U/L (<=46); Alkaline Phosphatase 112 U/L (40-129); Anion Gap 13 (5-15); BUN 20 mg/dL (4-19); BUN/Creat Ratio 22.7 RATIO (10-20); Calcium 9.1 mg/dL (7.6-11.0); Carbon Dioxide 20.8 mmol/L (22.0-29.0); Chloride 107 mmol/L (96-108); Cholesterol 101 mg/dL (<=200); Creatinine, Serum 0.87 mg/dL (0.70-1.20); EST Glomerular Filtration Rate 92 (>60); Globulin 2.9 g/dL (2.2-4.2); Glucose 130 mg/dL (70-99); High Density Lipoprotein 31 mg/dL; Low Density Lipoprotein Calc. 47 mg/dL; Potassium 4.3 mmol/L (3.3-5.1); Sodium Level 141 mmol/L (133-145); Thyroid Stim Hormone (TSH) 0.038 uIU/mL (0.300-4.200); Total Bilirubin 0.63 mg/dL (0.00-1.30); Triglycerides 118 mg/dL; Very Low Density Lipoprotein 24 mg/dL (5-40); Vitamin D,25 Hydroxy 23.3 ng/mL (30-100); cholesterol:hdl ratio screen 3.31
[2025-01-28 14:16] LABS: Hemoglobin A1c 6.5 % (<=5.6)
== END | disposition home or self-care (01) ==
PROVIDERS: PCP Family Medicine Geriatric Medicine; Visit Provider Family Medicine Geriatric Medicine
DX: I10 Essential (primary) hypertension (principal); E78.5 Hyperlipidemia, unspecified; E55.9 Vitamin D deficiency, unspecified; R73.09 Other abnormal glucose
CPT/HCPCS: 36415; 80053; 80061; 82306; 83036; 84443; 85025

== ENCOUNTER → 2025-07-26 | Outpatient (CLI) | payer MEDICARE, OTHER, SELFPAY ==
[2025-07-26 10:19] LABS: Hematocrit 47.9 % (40-54); Hemoglobin 16.2 g/dL (13.0-16.5); Immature Granulocytes Count 0.020 X10^3/uL (0.0-0.0); Mean Corp Hgb Conc 33.8 g/dL (32-36); Mean Corpuscular Volume 90.7 fL (80-94); Mean Platelet Vol. 9.0 fl (6.2-12.0); NRBC Flagged by Analyzer 0 % (0-5); Platelet Count 262 K/mm3 (150-450); RBC Distribution Width CV 13.4 % (11.6-14.6); RBC Distribution Width SD 45.0 fl (35.1-43.9); Red Blood Count 5.28 M/mm3 (4.6-6.2); White Blood Count 5.5 K/mm3 (4.4-11.0)
--- OUTSIDE RECORDS SUMMARY | 2025-07-26 10:39 | XMS RPT_ITS | CCD ---
Author Organization [facility] Care Team Providers Care Admission Discharge Rn Name Role Phone Unavailable Unavailable Unavailable LEELA BETTS Unavailable Unavail able GINGER BORREGO. Unavailable Unavailable Ginger Borrego Unavailable Unavailable Ginger Borrego Unavailable Unavailable Ginger Borrego Admitting Unavailable Ginger Borrego Attending Unavailable Ginger Borrego Primary Care Unavailable Unavailable Primary Care Provider Unavailcomfort e Elmo, Dr. Ginger Ureña Attending Unavaila ble Elmo, Dr. Ginger Ureña Primary Care Unavaila GINGER Agosto Primary Care Unavailable GINGER BORREGO Referring Unavailable GINGER BORREGO Attending Unavailable GINGER BORREGO Primary Care Unavailable Dr. Ginger Borrego Primary Care Provider [phone] Dr. Ginger Borrego Referring Provider Dr. Chuck Trejo Attending Provider Dr. Carl Tadeo Attending Provider Dr. Lukasz Head Attending Provider [phone] Dr. Chuck Trejo Referring Provider Dr. Chuck Trejo Other Provider Dr. Chuck Trejo Admit Provider Dr. Vanessa Rebolledo Attending Provider Dr. Vanessa Rebolledo Other Provider Dr. Alessandro Caceres Attending Provider Dr. Alessandro Caceres Other Provider KAREN GONZALES Attending Unavailable GABRIEL CORNELIUS Referring Unavaila GINGER Agosto Primary Care Unavailable GABRIEL CORNELIUS Referring Unavaila ble TOMCHAK, GINGER Santos Primary Care Un[facility] HENRIQUEZ Referring Unavaila ble TOMCHAK, GINGER Santos Primary Care Unavailable JAIROGABRIEL TIAN Referring Unavaila ble TOMCHAK, GINGER Santos Primary Care Unavailable BORJAYLAN, GABRIEL HENRIQUEZ Referring Unavaila ble TOMCHAK, GINGER Santos Primary Care Un[facility] Referring Unavaila ble TOMCHAK, GINGER Santos Primary Care [facility] Referring Unavaila ble TOMCHAK, GINGER Santos Primary Care Unavailable BORSAN LUCAS, GABRIEL HENRIQUEZ Referring Unavaila ble TOMCHAK, GINGER Santos Primary Care Un[facility] HENRIQUEZ Referring Unavaila ble TOMCHAK, GINGER Santos Primary Care Un[facility] Referring Unavaila ble TOMCHAK, GINGER Santos Primary Care [facility] Referring Unavaila ble TOMCHAK, GINGER Santos Primary [facility] Un[facility]erring Unavaila ble TOMCHAK, GINGER Santos Primary Care Un[facility] Referring Unavaila ble TOMCHAK, GINGER Santos Primary Care Un[facility] Referring Unavaila ble TOMCHAK, GINGER Santos Primary Care Un[facility] Referring Unavaila ble TOMCHAK, GINGER Santos Primary [facility] Referring Unavaila ble TOMCHAK, GINGER Santos Primary Care Unavailable GELY VAZQUEZ Attending Unavailable GABRIEL CORNELIUS Referring Unavaila ble TOMCHAK, GINGER Santos Primary Care Unavailable Dr. Marco Kilgore MD, Chi Primary Care Provider [phone] Dr. Marco Kilgore MD, Chi Referring Provider Dr. Gabriel Cornelius DO Attending Provider Dr. Carl Tadeo MD Attending Provider Dr. Marco Kilgore MD, Chi Attending Provider Dr. Marco Kilgore MD, Chi Primary Care Provider Dr. Marco Kilgore MD, Chi Referring Provider Marcos Ford Attending Provider Marco Kilgore Chi Referring Unavailable Marcos Schwartz Attending Unavailable Marco Kilgore Chi Primary Care Unavailable Jame, Marco Chi Primary Care Unavailable Jame, Marco Chi Referring Unavailable Gabriel Cornelius Attending Unavailable Keith Andrea Attending Unavailable Jame, Marco Chi Primary Care Unavailable Jame, Marco Chi Referring Unavailable Jame, Marco Chi Referring Unavailable EmreKeith Attending Unavailable Jame, Marco Chi Primary Care Unavailable Jame, Marco Chi Attending Unavailable Jame, Marco Chi Primary Care Unavailable Jame, Marco Chi Attending Unavailable Jame, Marco Chi Referring Unavailable Jame, Marco Chi Primary Care Unavailable Jame, Marco Chi Attending Unavailable Jame, Marco Chi Primary Care Unavailable Jame, Marco Chi Referring Unavailable Jame, Marco Chi Primary Care Unavailable Jame, Marco Chi Attending Unavailable Oskar Leon Referring Unavailable Oskar Leon Attending Unavailable Jame, Marco Chi Primary Care Unavailable Jame, Marco Chi Primary Care Unavailable Gabriel Cornelius Consulting Unavailable Gbariel Cornelius Admitting Unavailable Gabriel Cornelius Referring Unavailable Gabriel Cornelius Attending Unavailable Sameer Venegas Attending Unavailable Jame, Marco Chi Primary Care Unavailable Oskar Leon Attending Unavailable Jame, Marco Chi Primary Care Unavailable Jame, Marco Chi Referring Unavailable Jame, Marco Chi Primary Care Unavailable Jame, Marco Chi Referring Unavailable Gabriel Cornelius Attending Unavailable Jame, Marco Chi Primary Care Unavailable Carl Tadeo Attending Unavailable Jame, Marco Chi Attending Unavailable Jame, Marco Chi Referring Unavailable Jame, Marco Chi Primary Care Unavailable Jame, Marco Chi Attending Unavailable Jame, Marco Chi Primary Care Unavailable Jame, Marco Chi Referring Unavailable Jame, Marco Chi Primary Care Unavailable Gabriel Cornelius Referring Unavailable BorGabriel carrington Attending Unavailable Jame, Marco Chi Primary Care Unavailable Jame, Marco Chi Referring Unavailable Jame, Marco Chi Attending Unavailable Jame, Marco Chi Attending Unavailable Jame, Marco Chi Primary Care Unavailable Jame, Marco Chi Primary Care Unavailable Gabriel Cornelius Admitting Unavailable Gabriel Cornelius Referring Unavailable Gabriel Cornelius Attending Unavailable Oskar Leon Referring Unavailable Oskar Leon Attending Unavailable Jame, Marco Chi Primary Care Unavailable Jame, Marco Chi Primary Care Unavailable Jame, Marco Chi Referring Unavailable Gabriel Cornelius Attending Unavailable Jame, Marco Chi Primary Care Unavailable Jame, Marco Chi Referring Unavailable Gabriel Cornelius Attending Unavailable Jame, Marco Chi Primary Care Unavailable Jame, Marco Chi Referring Unavailable Gabriel Cornelius Attending Unavailable Ginger Borrego MD Primary Care Provider GINGER BORREGO Primary Care Unavailable LEWIS FROST Attending Unavailable Allergies Allergy Classification Reported Allergen(s) Allergy Type Date of Onset Reaction(s) Facility (1 source) ALLERGIES NOT ON FILE; Translations: [ALLERGIES NOT ON FILE] Propensity to adverse reactions (disorder) [facility] 2 Repository (2 sources) Seasonal allergy; Translations: [SEASONAL ALLERGIES] Allergy to substance 6 Other: See Comments [facility] Medications Current Medications Medication Drug Class(es) Dates Sig (Normalized) Sig (Original) amLODIPine 5 mg oral tablet (9 sources) Dihydropyridine Calcium Channel Betito Start: 08-14-2024 take 1 tablet by mouth once daily amLODIPine (NORVASC) 5 mg tablet Take 1 tablet by mouth once daily. 06/19/2025 Active Start: 12-02-2022 End: 02-23-2023 take 1 tablet by mouth once daily Amlodipine 5 mg tablet Discontinued 5 mg PO DAILY December 02, 2022 1:00am February 23, 2023 8:35am aspirin 81 mg delayed release oral tablet (3 sources) Platelet Aggregation Inhibitor, Nonsteroidal Anti-inflammatory Drug Start: 08-14-2024 Aspirin (Adult Lo w Dose Aspirin) 81 mg tablet,delayed release (DR/EC) Active 81 mg PO daily August 14, 2024 12:00am SUPPLEMENT take 1 tablet by mouth once deidre y aspirin 81 mg chewable tablet Take 81 mg by mouth once daily. Active atorvastatin 40 mg oral tablet (14 sources) HMG-CoA Reductase Inhibitor Start: 06-25-2025 Atorvastatin 40 mg tablet Active 20 mg PO AT BEDTIME June 25, 2025 9:14am CHOLESTEROL Start: 08-14-2024 End: 08-14-2024 take 2 tablets by mouth once daily Atorvastatin 20 mg tablet Discontinued 40 mg PO daily August 14, 2024 1:07pm August 14, 2024 1:10pm Start: 08-14-2024 End: 06-25-2025 take 1 tablet by mouth at bedtime Atorvastatin 40 mg tablet Discontinued 40 mg PO AT BEDTIME August 14, 2024 12:00am June 25, 2025 9:15am CHOLESTEROL Start: 11-05-2015 End: 08-14-2024 take 2 tablets by mouth once daily Atorvastatin 10 MG tablet Discontinued 20 mg PO DAILY November 05, 2015 1:00am August 14, 2024 12:59pm Start: 11-05-2015 take 20 mg by mouth once daily Atorvastatin Active 20 MG PO DAILY November 05, 2015 1:00am Start: 10-20-2015 End: 08-14-2024 take 1 tablet by mouth once daily Atorvastatin 20 mg tablet Discontinued 20 mg PO daily August 14, 2024 12:00am August 14, 2024 1:08pm cholecalciferol 0.025 mg oral tablet (2 sources) Vitamin D Start: 08-14-2024 take 1 tablet by mouth once daily Cholecalciferol (Vitamin D3) 25 mcg (1,000 unit) tablet Active 25 ug PO daily August 14, 2024 12:00am SUPPLEMENT levothyroxine sodium 0.2 mg oral tablet (10 sources) l-Thyroxine Start: 06-25-2025 Levothyroxine (Synthroid) 200 mcg tablet Active 200 ug PO June 25, 2025 9:15am THYROID Start: 06-19-2025 take 1 tablet by derek th once daily levothyroxine (SYNTHROID) 50 mcg tablet Take 1 tablet by mouth once daily. 06/19/2025 Active Start: 08-14-2024 End: 06-25-2025 Levothyroxine (Synthroid) 20 0 mcg tablet Discontinued 400 ug PO August 14, 2024 12:00am June 25, 2025 9:15am THYROID Start: 12-02-2022 End: 08-14-2024 Levothyroxine 200 mcg capsul e Discontinued 400 ug PO December 02, 2022 1:00am August 14, 2024 12:58pm Start: 12-02-2022 Levothyroxine Active 400 MCG PO December 02, 2022 1:00am loratadine 10 mg oral tablet (3 sources) Start: 09-19-2024 take 1 tablet by mouth once daily Loratadine (Allerclear) 10 mg tablet Active 10 mg PO DAILY September 19, 2024 12:00am ALLERGIES omeprazole 40 mg delayed release oral capsule (7 sources) Proton Pump Inhibitor Start: 12-02-2022 take 1 tablet by mouth once daily omeprazole (PRILOSEC) 40 mg capsule Take 1 tablet by mouth once daily. 06/19/2025 Active phenylephrine hydrochloride 25 mg/ml ophthalmic solution (2 sources) alpha-1 Adrenergic Agonist Start: 07-18-2025 End: 07-19-2025 PHENYLephrine 2.5 % 1 drop (AK-DILATE, LUBA-SYNEPHRINE) Start: 07-18-2025 End: 07-19-2025 1 drop, BOTH EYES, DIRECT ED, Starting on [facility] 07/18/25 at 1400, Until Tue07/19/25 at 0159, Administer for dilation PROTECT FROM LIGHT tamsulosin hydrochloride 0.4 mg oral capsule (7 sources) alpha-Adrenergic Betito Start: 08-14-2024 take 2 capsules by mouth once daily tamsulosin (FLOMAX) 0.4 mg Take 2 capsules by mouth once daily. 04/23/2025 Active Start: 01-26-2023 End: 08-14-2024 take 1 capsule by mouth once daily Tamsulosin (Flomax) 0.4 mg capsule Discontinued 0.4 mg PO DAILY January 26, 2023 1:00am August 14, 2024 1:01pm tropicamide 10 mg/ml ophthalmic solution (2 sources) Anticholinergic Start: 07-18-2025 End: 07-19-2025 tropicamide 1 % 1 drop (MYDRIACYL) Start: 07-18-2025 End: 07-19-2025 1 drop, BOTH EYES, DIRECT ED, Starting on [facility] 07/18/25 at 1400, Until Tue07/19/25 at 0159, Administer for dilation UBIDECARENONE (H2Q COQ10 ORA L) (1 source) UBIDECARENONE (H 2Q COQ10 ORAL) Take by mouth. Active vitamin D3-vitamin K2 1,250- 200 mcg cap (1 source) vitamin D3-vitam in K2 1,250-200 mcg cap Take by mouth. Active Completed/Discontinued Medications Medication Drug Class(es) Dates Sig (Normalized) Sig (Original) acetaminophen 500 mg oral tablet (8 sources) Start: 10-04-2024 End: 06-25-2025 take 2 tablets by mouth every six hours Acetaminophen 500 mg tablet Discontinued 1000 mg PO EVERY 6 HOURS 90 2 October 04, 2024 1:00am June 25, 2025 9:14am Start: 12-02-2022 End: 08-14-2024 take 1 tablet by mouth every six hours as needed for pain Acetaminophen (Tylenol Extra Strength) 500 mg tablet Discontinued 500 mg PO EVERY 6 HOURS as needed for Pain December 02, 2022 1:00am August 14, 2024 1:01pm acetaminophen 325 mg / oxyCODONE hydrochloride 5 mg oral tablet (12 sources) Opioid Agonist Start: 01-11-2023 End: 01-18-2023 Oxycodone-Acetaminophen 5-32 5 mg tablet Discontinued 1 {tbl} PO EVERY 6 HOURS as needed for pain 30 January 11, 2023 January 17, 2023 1:00am January 18, 2023 1:05am Status post laminectomy Other specified postprocedural states Start: 01-11-2023 End: 01-18-2023 take 1 tablet by mouth every six hours Oxycodone-Acetaminophen Discontinued 1 TABLET PO EVERY 6 HOURS 30 January 11, 2023 January 18, 2023 1:05am Start: 11-10-2015 End: 12-02-2022 Oxycodone-Acetaminophen 1 TA BLET tablet Discontinued 1 - 2 {tbl} PO EVERY 4 HOURS NEEDED as needed for Pain November 10, 2015 1:00am December 02, 2022 9:44am Start: 11-10-2015 End: 12-02-2022 take 1 tablet by mouth every four hours as needed Oxycodone-Acetaminophen Discontinued 1 - 2 TABLET PO EVERY 4 HOURS NEEDED November 10, 2015 1:00am December 02, 2022 9:44am apixaban 2.5 mg oral tablet (6 sources) Factor Xa Inhibitor Start: 10-04-2024 End: 11-12-2024 take 1 tablet by mouth twice daily Apixaban (Eliquis) 2.5 mg tablet Discontinued 2.5 mg PO TWICE A DAY 42 21 0 October 04, 2024 1:00am November 12, 2024 10:30am Start: 01-26-2023 End: 08-14-2024 take 1 tablet by mouth twice daily Apixaban (Eliquis) 2.5 mg tablet Discontinued 2.5 mg PO TWICE A DAY January 26, 2023 1:00am August 14, 2024 1:01pm esomeprazole 40 mg delayed release oral capsule (7 sources) Proton Pump Inhibitor Start: 10-20-2015 End: 12-02-2022 take 1 capsule by mouth once daily Esomeprazole Magnesium (Nexium) 40 MG capsule Discontinued 40 mg PO DAILY November 05, 2015 1:00am December 02, 2022 9:44am etodolac 500 mg oral tablet (2 sources) Nonsteroidal Anti-inflammatory Drug Start: 10-15-2024 End: 12-26-2024 take 1 tablet by mouth once daily Etodolac 500 mg tablet Discontinued 500 mg PO TWICE A DAY 60 0 October 15, 2024 1:00am December 26, 2024 10:24am pain May start day after the completion of blood thinner(Eliquis). Do not take in conjunction with other NSAID. Tylenol is okay. ibuprofen 400 mg oral tablet (6 sources) Nonsteroidal Anti-inflammatory Drug Start: 12-02-2022 End: 08-14-2024 take 1 tablet by mouth every six hours Ibuprofen 400 mg tablet Discontinued 400 mg PO EVERY 6 HOURS December 02, 2022 1:00am August 14, 2024 1:01pm lisinopril 5 mg oral tablet (6 sources) Angiotensin Converting Enzyme Inhibitor Start: 12-02-2022 End: 08-14-2024 take 1 tablet by mouth once daily Lisinopril 5 mg tablet Discontinued 5 mg PO DAILY December 02, 2022 1:00am August 14, 2024 1:01pm oxyCODONE hydrochloride 5 mg oral tablet (2 sources) Opioid Agonist Start: 10-04-2024 End: 11-12-2024 take 5-10 mg by mouth every four hours as needed for pain Oxycodone 5 mg tablet Discontinued 5 - 10 mg PO Q4H as needed for pain 60 7 0 October 04, 2024 November 12, 2024 10:31am Other acute postprocedural pain Other acute postprocedural pain ubidecarenone 100 mg / vitamin e 5 unt oral capsule (6 sources) Start: 11-05-2015 End: 12-02-2022 take 1 capsule by mouth once daily Coenzyme G91-Lejlply E (Co Q-10 100 Mg Softgel) 1 EACH capsule Discontinued 1 NMA PO DAILY November 05, 2015 1:00am December 02, 2022 9:44am Problems Active Problems Problem Classification Problem Date Documented Da te Episodic/Chronic Acute cerebrovascular disease (6 sources) Ischemic stroke; Translations: [Cerebral infarction, unspecified] Onset: 09-05-2024 09-19-2024 Chronic Comment on above: PER TESTING ONLY/PAT IENT NOT AWARE Cardiac dysrhythmias (1 source) Other specified cardiac arrhythmias; Translations: [Other specified cardiac arrhythmias] Onset: 09-05-2024 Chronic Cataract (3 sources) Bilateral age-related nuclear cataracts; Translations: [Age-related nuclear cataract, bilateral] Onset: 10-07-2016 07-18-2025 Chronic Disorders of lipid metabolism (3 sources) Hyperlipidemia; Translations: [Hyperlipidemia, unspecified] 09-19-2024 Chronic Comment on above: ON MED Essential hypertension (4 sources) Essential hypertension; Translations: [Essential (primary) hypertension] Onset: 02-08-2025 09-19-2024 Chronic Comment on above: CONTROLLED WITH MED Osteoarthritis (8 sources) Unilateral primary osteoarthritis, left knee; Translations: [Osteoarthritis of left knee joint] Onset: 08-27-2024 Chronic Other aftercare (5 sources) Follow-up status; Translations: [Encounter for other orthopedic aftercare] 10-15-2024 Episodic Other connective tissue disease (4 sources) Presence of left artificial knee joint; Translations: [Presence of left artificial knee joint] Onset: 10-09-2024 Chronic Other connective tissue disease (3 sources) History of total knee arthroplasty; Translations: [Presence of unspecified artificial knee joint] 10-04-2024 Chronic Other eye disorders (1 source) Bilateral vitreous floaters; Translations: [Other vitreous opacities, bilateral] 07-18-2025 Chronic Other eye disorders (1 source) Other vitreous opacities, bilateral; Translations: [Vitreous floaters of both eyes] Onset: 07-18-2025 Chronic Other lower respiratory disease (6 sources) Hypoxia; Translations: [Hypoxemia] 01-10-2023 Episodic Other lower respiratory disease (2 sources) Hypoxemia; Translations: [Hypoxemia] 01-11-2023 Episodic Other nervous system disorders (2 sources) Other chronic pain; Translations: [Other chronic pain] Onset: 11-23-2022 Chronic Other nervous system disorders (2 sources) Acute postoperative pain; Translations: [Other acute postprocedural pain] 10-04-2024 Episodic Other non-traumatic joint disorders (1 source) Pain in left hip; Translations: [Pain in left hip] Onset: 11-08-2022 Episodic Other non-traumatic joint disorders (2 sources) Pain in left knee; Translations: [Chronic pain of left knee] 09-19-2024 Episodic Other nutritional; endocrine; and metabolic disorders (2 sources) Obese abdomen; Translations: [Localized adiposity] 08-17-2024 Chronic Residual codes; unclassified (2 sources) Obstructive sleep apnea syndrome; Translations: [Obstructive sleep apnea (adult) (pediatric)] 09-05-2024 Chronic Residual codes; unclassified (6 sources) H/O Spinal surgery; Translations: [Other specified postprocedural states] 01-11-2023 Episodic Comment on above: 12/2022 Spondylosis; intervertebral disc disorders; other back problems (11 sources) Spondylosis without myelopathy or radiculopathy, lumbosacral region; Translations: [Other intervertebral disc displacement, lumbar region] Onset: 11-08-2022 12-02-2022 Chronic Spondylosis; intervertebral disc disorders; other back problems (11 sources) Lumbago with sciatica, left side; Translations: [Lumbago with sciatica, right side] Onset: 11-08-2022 Episodic Thyroid disorders (3 sources) Hypothyroidism; Translations: [Hypothyroidism, unspecified] Onset: 01-29-2025 09-19-2024 Chronic Comment on above: ON MED Past or Other Problems Problem Classification Problem Date Documented Da te Episodic/Chronic Abdominal hernia (1 source) Umbilical hernia; Translations: [Umbilical hernia without obstruction or gangrene] Onset: 11-17-2015 11-17-2015 Episodic Blindness and vision defects (5 sources) Presbyopia; Translations: [Presbyopia] Onset: 10-07-2016 07-18-2025 Episodic Other circulatory disease (1 source) Personal history of transient ischemic attack (TIA), and cerebral infarction without residual deficits; Translations: [Personal history of transient ischemic attack (TIA), and cerebral infarction without residual deficits] Onset: 09-04-2024 Episodic Residual codes; unclassified (2 sources) Localized edema; Translations: [Localized edema] Onset: 08-27-2024 Episodic Results Test Name Value Interpretation Reference Range Facility Cardiology Visit Reporton Cardiology Visit Report [facility] [address] [place] [address] OFFICE VISIT Date of Service: 06/25/25 MR#: [id number] Acct: [id number] Name: GAEL JIMENEZ Jr. Rep #: [id number] : 1955 Provider: JOSE Redding Age/Sex: 70/M Location: [facility] [place] Status: Signed HPI HPI History of Present Illness Details: Gael Jimenez is a 70-year-old male who presents to office today for follow-up for monitoring his cardiovascular health. Patient has a history of cerebellar infarcts that was found when he was undergoing workup for unilateral hearing loss in January 2024. MRI demonstrated these findings. His CTA did not show any significant large vessel intracranial atherosclerotic disease. His workup demonstrated 1 foci of infarct and had the appearance of an embolic event. He has no known history of atrial fibrillation. An echocardiogram showed a normal LV function with normal atrial sizes and no significant valvular disease or PFO. Patient has a history of obstructive sleep apnea treated with CPAP. He has a history of DVT in December 2022. Upon presentation today, patient reports noticing episodes where he finds himself coughing and will then experience vision going black but denies syncope. This seems to occur for a few days in a row but then resolves and does not necessarily recur for months. He feels this is associated with times of being sick and/or allergies causing him to cough at those times. He reports fatigue described as not having much energy. He feels this is related to aging and has been occurring over last several years and notices a lower stamina after each surgery (ortho) that he has had. He finds himself short of breath after coughing and wrenching hard on a machine. He finds it hard to walk down a decline secondary to knee pain. He has noticed a dizziness with activity at times. His dyspnea on exertion is not new but he feels it has become more continuous now. He is hoping this improves as weather cools down. Following his knee surgery, he felt he experienced a strong heart beat that resolved after a few minutes. He reports this is no longer occurring. Further ROS below. 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 Accompanied by: Self Is patient in pain?: No Allergies No Known Allergies Allergy (Verified 06/25/25 08:50) Medications ???Medication ???Instructions ???Recorded ???Confirmed ???Type omeprazole 40 mg capsule,delayed 40 mg PO DAILY GERD 12/02/2206/25 History release amlodipine 5 mg tablet 5 mg PO QDAY BP 08/14/24 06/25/25 History aspirin 81 mg tablet,delayed 81 mg PO QDAY SUPPLEMENT 08/14/24 06/25/25 History release (Adult Low Dose Aspirin) cholecalciferol (vitamin D3) 25 25 mcg PO QDAY SUPPLEMENT 08/14/24 06/25/25 History mcg (1,000 unit) tablet tamsulosin 0.4 mg capsule (Flomax) 0.8 mg PO QHS PROSTATE 08/14/24 06/25/25 History loratadine 10 mg tablet 10 mg PO DAILY ALLERGIES 09/19/24 06/25/25 History (Allerclear) atorvastatin 40 mg tablet 20 mg PO QHS CHOLESTEROL 06/25/25 06/25/25 History levothyroxine 200 mcg tablet 200 mcg PO SA THYROID 06/25/25 History (Synthroid) Ejection fraction %: 65 Have you fallen in the past year?: Yes PFSH Medical History Loss of hearing Migraine headache Injury of head and neck Syncope History of echocardiogram Cardiology follow-up encounter DVT (deep venous thrombosis) Ischemic stroke Osteoarthritis Vitamin D deficiency BPH (benign prostatic hyperplasia) GERD (gastroesophageal reflux disease) Essential hypertension Hyperlipidemia Hypothyroidism Wears glasses Cancer Back pain CPAP (continuous positive airway pressure) dependence Shortness of breath on exertion Leg cramps History of pain when walking History of stress test History of irregular heartbeat HNP (herniated nucleus pulposus), lumbar Melanoma Lower back pain Surgical History History of colonoscopy S/P laminectomy Hx of ventral hernia repair Hx of knee surgery Family History Father CVA (cerebral vascular accident) Other Arthritis Diabetes Social History Smoking Status: Never smoker alcohol intake: never substance use type: does not use caffeine: Yes ROS Const Const: Positive for fatigue and weakness (more content not included)... Normal [facility] Absolute neutrophil countOrd ered By: Marco Kilgore on 01-28-2025 Neutrophils (Bld) [#/Vol] 3.6 10*3/uL 2.0-7.7 [facility] BUN/creatinine ratioOrdered By: Marco Kilgore on 01-28-2025 Urea nitrogen/Creatinine [Mass ratio] 22.7 mg/mg High 10-20 [facility] Basophil percentageOrdered B y: Marco Kilgore on 01-28-2025 Basophils/100 WBC (Bld) 0.7 % 0-1 [facility] Bilirubin, totalOrdered By: Marco Kilgore on 01-28-2025 Bilirubin [Mass/Vol] 0.63 mg/dL 0.00-1.30 [facility] CBC W/Diff, Automatedon Absolute Lymph 1.28 X10 3/uL Normal 0.83-4.51 [facility] Comment on above: Performed By: #### L 501.9985, L501.9520, L100.0100, L500.4050, L506.1001, L500.4100 #### [facility] [address] [place], [address] Absolute Neut 3.6 X10 3/uL Normal 2.0-7.7 [facility] Comment on above: Performed By: #### L 501.9985, L501.9520, L100.0100, L500.4050, L506.1001, L500.4100 #### [facility] [address] [place], [address] Basophils/100 WBC (Bld) 0.7 % Normal 0-1 [facility] Comment on above: Performed By: #### L 501.9985, L501.9520, L100.0100, L500.4050, L506.1001, L500.4100 #### [facility] [address] [place], [address] Eosinophils/100 WBC (Bld) 4.2 % Normal 0-5 [facility] Comment on above: Performed By: #### L 501.9985, L501.9520, L100.0100, L500.4050, L506.1001, L500.4100 #### [facility] [address] [place], [address] Erythrocyte distribution width (RBC) [Ratio] 13.2 % Normal 11.6-14.6 [facility] Comment on above: Performed By: #### L 501.9985, L501.9520, L100.0100, L500.4050, L506.1001, L500.4100 #### [facility] [address] [place], [address] Hematocrit (Bld) [Volume fraction] 47.3 % Normal 40-54 [facility] Comment on above: Performed By: #### L 501.9985, L501.9520, L100.0100, L500.4050, L506.1001, L500.4100 #### [facility] [address] [place], [address] Hemoglobin (Bld) [Mass/Vol] 15.6 g/dL Normal 13.0-16.5 [facility] Comment on above: Performed By: #### L 501.9985, L501.9520, L100.0100, L500.4050, L506.1001, L500.4100 #### [facility] [address] [place], [address] IG% 0.300 Normal 0.0-0.9 [facility] Comment on above: Result Comment: IG% - Immature Granulocytes (promyelocytes, myelocytes and metamyelocytes) > 1% indicates that a LEFT SHIFT is Present. Performed By: #### L 501.9985, L501.9520, L100.0100, L500.4050, L506.1001, L500.4100 #### [facility] [address] [place], [address] Lymphocytes/100 WBC (Bld) 22.2 % Normal 19-41 [facility] Comment on above: Performed By: #### L 501.9985, L501.9520, L100.0100, L500.4050, L506.1001, L500.4100 #### [facility] [address] [place], [address] MCH (RBC) [Entitic mass] 29.3 pg Normal 27.0-32.0 [facility] Comment on above: Performed By: #### L 501.9985, L501.9520, L100.0100, L500.4050, L506.1001, L500.4100 #### [facility] [address] [place], [address] MCHC (RBC) [Mass/Vol] 33.0 g/dL Normal 32-36 [facility] Comment on above: Performed By: #### L 501.9985, L501.9520, L100.0100, L500.4050, L506.1001, L500.4100 #### [facility] [address] [place], [address] MCV (RBC) [Entitic vol] 88.9 fL Normal 80-94 [facility] Comment on above: Performed By: #### L 501.9985, L501.9520, L100.0100, L500.4050, L506.1001, L500.4100 #### [facility] [address] [place], [address] Monocytes/100 WBC (Bld) 9.7 % Normal 0-10 [facility] Comment on above: Performed By: #### L 501.9985, L501.9520, L100.0100, L500.4050, L506.1001, L500.4100 #### [facility] [address] [place], [address] Neutrophils/100 WBC (Bld) 62.9 % Normal 47-70 [facility] Comment on above: Performed By: #### L 501.9985, L501.9520, L100.0100, L500.4050, L506.1001, L500.4100 #### [facility] [address] [place], [address] Nucleated RBC (Bld) [#/Vol] 0 10*3/uL Normal 0-5 [facility] Comment on above: Performed By: #### L 501.9985, L501.9520, L100.0100, L500.4050, L506.1001, L500.4100 #### [facility] [address] [place], [address] Platelet mean volume (Bld) [Entitic vol] 8.8 fL Normal 6.2-12.0 [facility] Comment on above: Performed By: #### L 501.9985, L501.9520, L100.0100, L500.4050, L506.1001, L500.4100 #### [facility] [address] [place], [address] Platelets (Bld) [#/Vol] 291 10*3/uL Normal 150-450 [facility] Comment on above: Performed By: #### L 501.9985, L501.9520, L100.0100, L500.4050, L506.1001, L500.4100 #### [facility] [address] [place], [address] RBC (Bld) [#/Vol] 5.32 10*6/uL Normal 4.6-6.2 [facility] Comment on above: Performed By: #### L 501.9985, L501.9520, L100.0100, L500.4050, L506.1001, L500.4100 #### [facility] [address] [place], [address] RDW SD 42.9 fl Normal 35.1-43.9 [facility] Comment on above: Performed By: #### L 501.9985, L501.9520, L100.0100, L500.4050, L506.1001, L500.4100 #### [facility] [address] [place], [place], [address] WBC (Bld) [#/Vol] 5.8 10*3/uL Normal 4.4-11.0 [facility] Comment on above: Performed By: #### L 501.9985, L501.9520, L100.0100, L500.4050, L506.1001, L500.4100 #### [facility] [address] [place], [place], [address] Calculated very low density lipoprotein (VLDL) cholesterol measurementOrdered By: Marco Kilgore on 01-28-2025 VLDL Cholesterol 24 mg/dL 5-40 [facility] Carbon dioxide measurementOr dered By: Marco Kilgore on 01-28-2025 CO2 [Moles/Vol] 20.8 mmol/L Low 22.0-29.0 [facility] Chloride measurementOrdered By: Marco Kilogre on 01-28-2025 Chloride [Moles/Vol] 107 mmol/L 96-108 [facility] Comprehensive Metabolic Prof ilon 01-28-2025 Albumin [Mass/Vol] 4.0 g/dL Normal 3.4-4.8 [facility] Comment on above: Performed By: #### L 501.9985, L501.9520, L100.0100, L500.4050, L506.1001, L500.4100 #### [facility] [address] [place], [address] Albumin/Globulin [Mass ratio] 1.4 {ratio} Normal 0.9-2.4 [facility] Comment on above: Performed By: #### L 501.9985, L501.9520, L100.0100, L500.4050, L506.1001, L500.4100 #### [facility] [address] [place], [address] ALK PHOS 112 U/L Normal 40-129 [facility] Comment on above: Performed By: #### L 501.9985, L501.9520, L100.0100, L500.4050, L506.1001, L500.4100 #### [facility] [address] [place], [address] ALT [Catalytic activity/Vol] 17 U/L Normal <=46 [facility] Comment on above: Performed By: #### L 501.9985, L501.9520, L100.0100, L500.4050, L506.1001, L500.4100 #### [facility] [address] [place], [address] Anion gap [Moles/Vol] 13 mmol/L Normal 5-15 [facility] Comment on above: Performed By: #### L 501.9985, L501.9520, L100.0100, L500.4050, L506.1001, L500.4100 #### [facility] [address] [place], [address] AST [Catalytic activity/Vol] 27 U/L Normal <=37 [facility] Comment on above: Performed By: #### L 501.9985, L501.9520, L100.0100, L500.4050, L506.1001, L500.4100 #### [facility] [address] [place], [address] Bilirubin [Mass/Vol] 0.63 mg/dL Normal 0.00-1.30 [facility] Comment on above: Performed By: #### L 501.9985, L501.9520, L100.0100, L500.4050, L506.1001, L500.4100 #### [facility] [address] [place], [address] BUN/CRE 22.7 RATIO High 10-20 [facility] Comment on above: Performed By: #### L 501.9985, L501.9520, L100.0100, L500.4050, L506.1001, L500.4100 #### [facility] [address] [place], [address] Calcium [Mass/Vol] 9.1 mg/dL Normal 7.6-11.0 [facility] Comment on above: Performed By: #### L 501.9985, L501.9520, L100.0100, L500.4050, L506.1001, L500.4100 #### [facility] [address] [place], [address] Chloride [Moles/Vol] 107 mmol/L Normal 96-108 [facility] Comment on above: Performed By: #### L 501.9985, L501.9520, L100.0100, L500.4050, L506.1001, L500.4100 #### [facility] [address] [place], [address] CO2 [Moles/Vol] 20.8 mmol/L Low 22.0-29.0 [facility] Comment on above: Performed By: #### L 501.9985, L501.9520, L100.0100, L500.4050, L506.1001, L500.4100 #### [facility] [address] [place], [address] Creatinine [Mass/Vol] 0.87 mg/dL Normal 0.70-1.20 [facility] Comment on above: Performed By: #### L 501.9985, L501.9520, L100.0100, L500.4050, L506.1001, L500.4100 #### [facility] [address] [place], [address] GFR/1.73 sq M.predicted among non-blacks MDRD (S/P/Bld) [Vol rate/Area] 92 mL/min/{1.73_m2} Normal >60 [facility] Comment on above: Result Comment: mL/m in/1.73m2 CKD-EPI Creatinine Equation (2020) Performed By: #### L 501.9985, L501.9520, L100.0100, L500.4050, L506.1001, L500.4100 #### [facility] [address] [place], [address] Globulin (S) [Mass/Vol] 2.9 g/dL Normal 2.2-4.2 [facility] Comment on above: Performed By: #### L 501.9985, L501.9520, L100.0100, L500.4050, L506.1001, L500.4100 #### [facility] [address] [place], [address] Glucose [Mass/Vol] 130 mg/dL High 70-99 [facility] Comment on above: Performed By: #### L 501.9985, L501.9520, L100.0100, L500.4050, L506.1001, L500.4100 #### [facility] [address] [place], [address] Potassium [Moles/Vol] 4.3 mmol/L Normal 3.3-5.1 [facility] Comment on above: Performed By: #### L 501.9985, L501.9520, L100.0100, L500.4050, L506.1001, L500.4100 #### [facility] [address] [place], [address] Sodium [Moles/Vol] 141 mmol/L Normal 133-145 [facility] Comment on above: Performed By: #### L 501.9985, L501.9520, L100.0100, L500.4050, L506.1001, L500.4100 #### [facility] [address] [place], [address] T PROT 7.0 g/dL Normal 5.9-8.4 [facility] Comment on above: Performed By: #### L 501.9985, L501.9520, L100.0100, L500.4050, L506.1001, L500.4100 #### [facility] [address] [place], [address] Urea nitrogen [Mass/Vol] 20 mg/dL High 4-19 [facility] Comment on above: Performed By: #### L 501.9985, L501.9520, L100.0100, L500.4050, L506.1001, L500.4100 #### [facility] [address] [place], [address] Eosinophil percentageOrdered By: Marco Kilgore on 01-28-2025 Eosinophils/100 WBC (Bld) 4.2 % 0-5 [facility] Erythrocyte distribution wid th ratioOrdered By: Marco Kilgore on 01-28-2025 Erythrocyte distribution width (RBC) [Ratio] 13.2 % 11.6-14.6 [facility] Erythrocyte distribution wid th standard deviationOrdered By: Marco Kilgore on 01-28-2025 Erythrocyte distribution width (RBC) [Entitic vol] 42.9 fL 35.1-43.9 [facility] GFR/1.73 sq M.predicted mauricio g non-blacks MDRD (S/P/Bld) [Vol rate/Area]Ordered By: Marco Kilgore on 01-28-2025 Estimated GFR (MDRD) Non-Af Amer 92 >60 [facility] Comment on above: mL/min/1.73m2 CKD-EP I Creatinine Equation (2020) Hematocrit Auto (Bld) [Volum e fraction]Ordered By: Marco Kilgore on 01-28-2025 Hematocrit (Bld) [Volume fraction] 47.3 % 40-54 [facility] Hemoglobin A1con 01-28-2025 HbA1c (Bld) [Mass fraction] 6.5 % Normal <=5.6 [facility] Comment on above: Order Comment: add o n [id number] Performed By: #### L 501.9985, L501.9520, L100.0100, L500.4050, L506.1001, L500.4100 #### [facility] [address] [place], [address] Hemoglobin A1c percentageOrd ered By: Marco Kilgore on 01-28-2025 HbA1c (Bld) [Mass fraction] 6.5 % >5.7 [facility] Hemoglobin measurementOrdere d By: Marco Kilgore on 01-28-2025 Hemoglobin (Bld) [Mass/Vol] 15.6 g/dL 13.0-16.5 [facility] Immature granulocytes/100 WB C Auto (Bld)Ordered By: Marco Kilgore on 01-28-2025 Immature granulocytes/100 WBC (Bld) 0.300 % 0.0-0.9 [facility] Comment on above: IG% - Immature Granu locytes (promyelocytes, myelocytes and metamyelocytes) > 1% indicates that a LEFT SHIFT is Present. L506.1001on 01-28-2025 Vitamin D 25-OH 23.3 ng/mL Low 30-100 [facility] Comment on above: Result Comment: Ella min D Status Deficiency: <20 ng/mL (50nmol/L) Insufficiency: 20-30 ng/mL (50-75 nmol/L) Sufficiency: 30-100 ng/mL (75-250 nmol/L) Toxicity: >100 ng/mL (>250 nmol/L) Performed By: #### L 501.9985, L501.9520, L100.0100, L500.4050, L506.1001, L500.4100 #### [facility] [address] [place], [address] LDL calc ser/plasOrdered By: Marco Kilgore on 01-28-2025 LDL Cholesterol, Calculated 47 mg/dL [facility] Comment on above: Blazvxdlsm=619-070 m g/dL & Higher Fjou=922 mg/dL or greater Laboratory - Chemistry and C hemistry - challengeOrdered By: Marco Kilgore on 01-28-2025 AST [Catalytic activity/Vol] 27 U/L <38 [facility] Lipid Profileon 01-28-2025 CHOL:HDL 3.31 Normal [facility] Comment on above: Performed By: #### L 501.9985, L501.9520, L100.0100, L500.4050, L506.1001, L500.4100 #### [facility] [address] [place], [address] Cholesterol [Mass/Vol] 101 mg/dL Normal <=200 [facility] Comment on above: Result Comment: Chol esterol level, Desirable <200 mg/dL Borderline high cholesterol 200-239 mg/dL High cholesterol >=240 mg/dL Recommendations of the NCEP Adult Treatment Panel for the following risk-cutoff thresholds for the [place] population. Performed By: #### L 501.9985, L501.9520, L100.0100, L500.4050, L506.1001, L500.4100 #### [facility] [address] [place], [address] Cholesterol in HDL [Mass/Vol] 31 mg/dL Low [facility] Comment on above: Result Comment: My onal Cholesterol Education Program (NCEP) guidelines: <40 mg/dL: Low HDL-cholesterol (major risk factor for CHD) >= 60 mg/dL: High HDL-cholesterol (negative risk factor for CHD) HDL-cholesterol is affected by a number of factors, e.g. smoking, exercise, hormones, sex and age. Performed By: #### L 501.9985, L501.9520, L100.0100, L500.4050, L506.1001, L500.4100 #### [facility] [address] [place], [address] Cholesterol in LDL [Mass/Vol] 47 mg/dL Normal [facility] Comment on above: Result Comment: Bord dndlmw=163-621 mg/dL Higher Hdmo=343 mg/dL or greater Performed By: #### L 501.9985, L501.9520, L100.0100, L500.4050, L506.1001, L500.4100 #### [facility] [address] [place], [address] Cholesterol in VLDL [Mass/Vol] 24 mg/dL Normal 5-40 [facility] Comment on above: Performed By: #### L 501.9985, L501.9520, L100.0100, L500.4050, L506.1001, L500.4100 #### [facility] [address] [place], [address] Triglyceride [Mass/Vol] 118 mg/dL Normal [facility] Comment on above: Result Comment: The drugs N-Acetylcysteine and Metamizole may falsely depress this assay. Normal range: <150 mg/dL Borderline High: 150-199 mg/dL High: 200-499 mg/dL Very High: >500 mg/dL Performed By: #### L 501.9985, L501.9520, L100.0100, L500.4050, L506.1001, L500.4100 #### [facility] [address] [place], [address] Lymphocytes Auto (Unsp spec) [#/Vol]Ordered By: Marco Kilgore on 01-28-2025 Lymphocytes (Bld) [#/Vol] 1.28 10*3/uL 0.83-4.51 [facility] Lymphocytes/100 WBC Auto (Un sp spec)Ordered By: Marco Kilgore on 01-28-2025 Lymphocytes/100 WBC (Bld) 22.2 % 19-41 [facility] MCV (mean corpuscular volume ) determinationOrdered By: Marco Kilgore on 01-28-2025 MCV (RBC) [Entitic vol] 88.9 fL 80-94 [facility] Mean corpuscular hemoglobin (MCH) determinationOrdered By: Marco Kilgore on 01-28-2025 MCH (RBC) [Entitic mass] 29.3 pg 27.0-32.0 [facility] Mean corpuscular hemoglobin concentration (MCHC) determinationOrdered By: Marco Kilgore on 01-28-2025 MCHC (RBC) [Mass/Vol] 33.0 g/dL 32-36 [facility] Mean platelet volume determi nationOrdered By: Marco Kilgore on 01-28-2025 Platelet mean volume (Bld) [Entitic vol] 8.8 fL 6.2-12.0 [facility] Monocyte percentageOrdered B y: Marco Kilgore on 01-28-2025 Monocytes/100 WBC (Bld) 9.7 % 0-10 [facility] Neutrophil percentageOrdered By: Marco Kilgore on 01-28-2025 Neutrophils/100 WBC (Bld) 62.9 % 47-70 [facility] Nucleated red blood cell per centageOrdered By: Marco Kilgore on 01-28-2025 Nucleated RBC/100 WBC (Bld) [Ratio] 0 % 0-5 [facility] Platelet countOrdered By: Efrem Kilgore on 01-28-2025 Platelets (Bld) [#/Vol] 291 10*3/uL 150-450 [facility] RBC Auto (Bld) [#/Vol]Ordere d By: Marco Kilgore on 01-28-2025 RBC (Bld) [#/Vol] 5.32 10*6/uL 4.6-6.2 [facility] Screening total cholesterol/ high density lipoprotein (HDL) cholesterol ratioOrdered By: Marco Kilgore on 01-28-2025 Cholesterol.total/Cho lesterol in HDL [Mass ratio] 3.31 {ratio} [facility] Serum creatinine measurement (mass/volume)Ordered By: Marco Kilgore on 01-28-2025 Creatinine [Mass/Vol] 0.87 mg/dL 0.70-1.20 [facility] Serum globulin measurementOr dered By: Marco Kilgore on 01-28-2025 Globulin (S) [Mass/Vol] 2.9 g/dL 2.2-4.2 [facility] Serum glucose measurement (m ass/volume)Ordered By: Marco Kilgore on 01-28-2025 Glucose [Mass/Vol] 130 mg/dL High 70-99 [facility] Serum or plasma alanine villarreal otransferase (ALT) measurementOrdered By: Marco Kilgore on 01-28-2025 ALT [Catalytic activity/Vol] 17 U/L <47 [facility] Serum or plasma albumin ingel urement (mass/volume)Ordered By: Marco Kilgore on 01-28-2025 Albumin [Mass/Vol] 4.0 g/dL 3.4-4.8 [facility] Serum or plasma albumin/glob ulin mass ratioOrdered By: Marco Kilgore 01-28-2025 Albumin/Globulin [Mass ratio] 1.4 {ratio} 0.9-2.4 [facility] Serum or plasma alkaline july sphatase measurementOrdered By: Marco Kilgore 01-28-2025 ALP [Catalytic activity/Vol] 112 U/L 40-129 [facility] Serum or plasma anion gap de termination (moles/volume)Ordered By: Marco Kilgore 01-28-2025 Anion gap [Moles/Vol] 13 mmol/L 5-15 [facility] Serum or plasma calcium nigel urement (mass/volume)Ordered By: Marco Kilgore 01-28-2025 Calcium [Mass/Vol] 9.1 mg/dL 7.6-11.0 [facility] Serum or plasma cholesterol in HDL measurement (mass/volume)Ordered By: Marco Kilgore on 01-28-2025 Cholesterol in HDL [Mass/Vol] 31 mg/dL Low >40 [facility] Comment on above: National Cholesterol Education Program (NCEP) guidelines:<40 mg/dL: Low HDL-cholesterol (major risk factor for CHD)>= 60 mg/dL: High HDL-cholesterol (negative risk factor for CHD)HDL-cholesterol is affected by a number of factors, e.g. smoking, exercise, hormones, sex and age. Serum or plasma cholesterol measurement (mass/volume)Ordered By: Marco Kilgore 01-28-2025 Cholesterol [Mass/Vol] 101 mg/dL <201 [facility] Comment on above: Cholesterol level, D esirable <200 mg/dLBorderline high cholesterol 200-239 mg/dLHigh cholesterol >=240 mg/dLRecommendations of the NCEP Adult Treatment Panel for the following risk-cutoff thresholds for the [place] population. Serum or plasma potassium me asurementOrdered By: Marco Kilgore on 01-28-2025 Potassium [Moles/Vol] 4.3 mmol/L 3.3-5.1 [facility] Serum or plasma sodium measu rement (moles/volume)Ordered By: Marco Kilgore on 01-28-2025 Sodium [Moles/Vol] 141 mmol/L 133-145 [facility] Serum or plasma urea nitroge n measurement (mass/volume)Ordered By: Marco Kilgore on 01-28-2025 Urea nitrogen [Mass/Vol] 20 mg/dL High 4-19 [facility] TSH DL <= 0.005 mIU/L QnOrde red By: Marco Kilgore on 01-28-2025 Thyroid Stimulating Hormone (TSH) 0.038 uIU/mL Low 0.300-4.200 [facility] Thyroid Stim Hormone (TSH)on 01-28-2025 TSH 0.038 uIU/mL Low 0.300-4.200 [facility] Comment on above: Performed By: #### L 501.9985, L501.9520, L100.0100, L500.4050, L506.1001, L500.4100 #### [facility] [address] [place], [place] [address] [place], [place], [address] Total proteinOrdered By: Marco Kilgore on 01-28-2025 Protein [Mass/Vol] 7.0 g/dL 5.9-8.4 [facility] Triglycerides measurementOrd ered By: Marco Kilgore on 01-28-2025 Triglyceride [Mass/Vol] 118 mg/dL <199 [facility] Comment on above: The drugs N-Acetylcy steine and Metamizole may falsely depress this assay. Normal range: <150 mg/dLBorderline High: 150-199 mg/dLHigh: 200-499 mg/dLVery High: >500 mg/dL Vitamin D, 25-hydroxyOrdered By: Marco Kilgore on 01-28-2025 Vitamin D 25-Hydroxy 23.3 ng/mL Low 30-100 [facility] Comment on above: Vitamin D StatusDefi ciency: <20 ng/mL (50nmol/L)Insufficiency: 20-30 ng/mL (50-75 nmol/L)Sufficiency: 30-100 ng/mL (75-250 nmol/L)Toxicity: >100 ng/mL (>250 nmol/L) White blood cell (WBC) count Ordered By: Marco Kilgore on 01-28-2025 WBC (Bld) [#/Vol] 5.8 10*3/uL 4.4-11.0 [facility] Orthopedic Visit Reporton Orthopedic Visit Report [facility] [address] [place] [address] [address] [place] [address] OFFICE VISIT Date of Service: 12/26/24 MR#: [id number] Acct: [id number] Name: GAEL JIMENEZ Jr. Rep #: [id number] : 1955 Provider: Dr. Gabriel tian DO Age/Sex: 69/M Location: [facility] Status: Signed Intake Vital Signs 10/03/24 17:14 Height 5 ft 7 in Intake Visit Reasons: LEFT KNEE Is patient in pain?: No Allergies No Known Allergies Allergy (Verified 12/26/24 09:23) Medications ???Medication ???Instructions ???Recorded ???Confirmed ???Type omeprazole 40 mg capsule,delayed 40 mg PO DAILY GERD 12/02/22 12/26/24 History release amlodipine 5 mg tablet 5 mg PO QDAY BP 08/14/24 12/26/24 History aspirin 81 mg tablet,delayed 81 mg PO QDAY SUPPLEMENT 08/14/24 12/26/24 History release (Adult Low Dose Aspirin) atorvastatin 40 mg tablet 40 mg PO QHS CHOLESTEROL 08/14/24 12/26/24 History cholecalciferol (vitamin D3) 25 25 mcg PO QDAY SUPPLEMENT 08/14/24 12/26/24 History mcg (1,000 unit) tablet levothyroxine 200 mcg tablet 400 mcg PO SA THYROID 08/14/24 12/26/24 History (Synthroid) tamsulosin 0.4 mg capsule (Flomax) 0.8 mg PO QHS PROSTATE 08/14/24 12/26/24 History loratadine 10 mg tablet 10 mg PO DAILY ALLERGIES 09/19/24 12/26/24 History (Allerclear) acetaminophen 500 mg tablet 1,000 mg (2 x 500 mg) PO Q6H #90 10/04/24 12/26/24 Rx tabs Have you fallen in the past year?: No PFSH Medical History Loss of hearing Migraine headache Injury of head and neck Syncope History of echocardiogram Cardiology follow-up encounter DVT (deep venous thrombosis) Ischemic stroke Osteoarthritis Vitamin D deficiency BPH (benign prostatic hyperplasia) GERD (gastroesophageal reflux disease) Essential hypertension Hyperlipidemia Hypothyroidism Wears glasses Cancer Back pain CPAP (continuous positive airway pressure) dependence Shortness of breath on exertion Leg cramps History of pain when walking History of stress test History of irregular heartbeat HNP (herniated nucleus pulposus), lumbar Melanoma Lower back pain Surgical History History of colonoscopy S/P laminectomy Hx of ventral hernia repair Hx of knee surgery Family History Father CVA (cerebral vascular accident) Other Arthritis Diabetes Social History Smoking Status: Never smoker alcohol intake: never substance use type: does not use caffeine: Yes HPI LEFT KNEE Details: This documentation accurately reflects the service provided and the decisions made by me, Dr. Gabriel Cornelius, DO 12/26/24 0806. Part of today???s visit was documented by [ ], acting as scribe. GAEL JIMENEZ is a 69 year old M here today for s/p left total knee arthroplasty dos 10/03/24. Patient notes that he is continues to improve. He continues to have stiffness and worse in the morning that improves throughout the day. He does not feel that his stiffness limits him and he feels he is at or better than he was preoperatively with the range of motion. He denies any pain but he has a sharp sensation that comes and goes, and is a different pain and different location. Patient is no longer doing formal physical therapy but continues to work on his range of motion at home. He is content with the current range of motion. He denies any pain medication on a regular basis but does take tylenol it needed. Ortho Exam General General: Yes no acute distress Neurologic: Yes alert and Yes oriented x3 Psychologic: Yes reasonable and appropriate Right Knee Patella Translation: 1 Left Knee Skin/Wound: Yes healed, No ecchymosis, No erythema and Yes swelling Homans Sign: No Knee ROM: Yes ROM-Extension -20 to 0 (-18) and Yes ROM-Flexion 0-140 (95) Stability: NML: Valgus 0, NML: Valgus 30, NML: Varus 0 and NML: Varus 30 Patella Translation: 1 KNEE: No sign of infection or DVT neurovascular intact left lower extremity swelling is improving Supplemental Info 11/12/2024 x-ray left knee: Status post press fit total knee arthroplasty with good interfaces and position 10/03/2024 left total knee arthroplasty: Dr. Cornelius 01/26/2024 x-ray right knee: Moderate medial compartment narrowing of note there is no sunrise view 01/26/2024 x-ray left knee: Moderate to severe medial compartment narrowing with varus deformity worse on flexion view of note there is no sunrise view Coding Level of Care Code Global Post Op Diagnoses Orthopedic aftercare Z47.89 Assessment and Plan Assessment and Plan (1) Orthopedic aftercare: Status: Acute Plan Spoke with the patient about stiff (more content not included)... Normal [facility] Knee 3 Viewson 11-12-2024 Knee 3 Views [facility]iology [address] [place] [address] Knee 3 Views MR#: [id number] Acct: [id number] Name: JIMENEZGAELSIERRA Hassan Rep #: [id number] : 1955 M 69 From: Octaviano Cassidy MD PCP: Dr. Marco Kilgore MD Status: DEP AMB Study: Knee 3 Views Date of Exam: 11/12/24 Exam# [id number] Ordering Dr: Gabriel Cornelius DO [id number] STUDY: X-RAY - LEFT KNEE REASON FOR EXAM: Male, 69 years old. Status post left total knee arthroplasty. 6 weeks postop. TECHNIQUE: 3 views of the left knee. COMPARISON: None. FINDINGS: Again seen are postoperative changes related to left total knee arthroplasty with patellar resurfacing. The previously seen skin flores have been removed. The previously seen intra-articular gas has resorbed. The orthopedic hardware components are intact. There is no periprosthetic fracture. There is a persistent left knee joint effusion. Normal proximal tibiofibular articulation. There is persistent prepatellar soft tissue swelling. RAD/Knee 3 Views IMPRESSION: Left knee arthroplasty, with no periprosthetic fracture. Persistent left knee joint effusion. Persistent prepatellar soft tissue swelling. Electronically Signed: Octaviano Cassidy MD at 9:05 EST Reading Location ID and State: [address] [place] [address] , Service support , CC: Dr. Gabriel Cornelius DO; Dr. Marco Kilgore MD Shirt Marker: Signed Normal [facility] Orthopedic Visit Reporton Orthopedic Visit Report [facility] [address] [place] [address] OFFICE VISIT Date of Service: 11/12/24 MR#: [id number] Acct: [id number] Name: GAEL JIMENEZ Jr. Rep #: [id number] : 1955 Provider: Dr. Gabriel tian DO Age/Sex: 69/M Location: [facility].RADHA Status: Signed Intake Vital Signs 08/17/24 08:02 10/03/24 17:14 Height 5 ft 6 in 5 ft 7 in Intake Visit Reasons: left knee Allergies No Known Allergies Allergy (Verified 11/12/24 09:28) Medications ???Medication ???Instructions ???Recorded ???Confirmed ???Type omeprazole 40 mg capsule,delayed 40 mg PO DAILY GERD 12/02/22 11/12/24 History release amlodipine 5 mg tablet 5 mg PO QDAY BP 08/14/24 11/12/24 History aspirin 81 mg tablet,delayed 81 mg PO QDAY SUPPLEMENT 08/14/24 11/12/24 History release (Adult Low Dose Aspirin) atorvastatin 40 mg tablet 40 mg PO QHS CHOLESTEROL 08/14/24 11/12/24 History cholecalciferol (vitamin D3) 25 25 mcg PO QDAY SUPPLEMENT 08/14/24 11/12/24 History mcg (1,000 unit) tablet levothyroxine 200 mcg tablet 400 mcg PO SA THYROID 08/14/24 11/12/24 History (Synthroid) tamsulosin 0.4 mg capsule (Flomax) 0.8 mg PO QHS PROSTATE 08/14/24 11/12/24 History loratadine 10 mg tablet 10 mg PO DAILY ALLERGIES 09/19/24 11/12/24 History (Allerclear) acetaminophen 500 mg tablet 1,000 mg (2 x 500 mg) PO Q6H #90 10/04/24 11/12/24 Rx tabs etodolac 500 mg tablet 500 mg PO BID pain #60 tabs 10/15/24 11/12/24 Rx Have you fallen in the past year?: Yes PFSH Medical History Loss of hearing Migraine headache Injury of head and neck Syncope History of echocardiogram Cardiology follow-up encounter DVT (deep venous thrombosis) Ischemic stroke Osteoarthritis Vitamin D deficiency BPH (benign prostatic hyperplasia) GERD (gastroesophageal reflux disease) Essential hypertension Hyperlipidemia Hypothyroidism Wears glasses Cancer Back pain CPAP (continuous positive airway pressure) dependence Shortness of breath on exertion Leg cramps History of pain when walking History of stress test History of irregular heartbeat HNP (herniated nucleus pulposus), lumbar Melanoma Lower back pain Surgical History History of colonoscopy S/P laminectomy Hx of ventral hernia repair Hx of knee surgery Family History Father CVA (cerebral vascular accident) Other Arthritis Diabetes Social History Smoking Status: Never smoker alcohol intake: never substance use type: does not use caffeine: Yes HPI left knee Details: This documentation accurately reflects the service provided and the decisions made by me, Dr. Gabriel Cornelius, DO 11/12/24 0924. Part of today???s visit was documented by María LOPEZ, acting as scribe. GAEL JIMENEZ is a 69 year old M here today for 6 weeks post-op left total knee arthroplasty robotic assisted dos: 10/03/24. He ambulates with a walking stick today. Patient states that he is doing good and the knee is coming along. He states that he has more ROM now than he did before surgery and if it were all he could get he would be happy to live with it that way. He denies having pain today but does have some achiness and stiffness. Ortho Exam General General: Yes no acute distress Neurologic: Yes alert and Yes oriented x3 Psychologic: Yes reasonable and appropriate Right Knee Patella Translation: 1 Left Knee Date of Surgery: 10/03/24 Skin/Wound: Yes healed, No ecchymosis, No erythema and Yes swelling (Much improved) Homans Sign: No Knee ROM: Yes ROM-Extension -20 to 0 (-11) and Yes ROM-Flexion 0-140 (105) Stability: NML: Anterior Drawer, NML: Posterior Drawer, NML: Valgus 0, NML: Valgus 30, NML: Varus 0 and NML: Varus 30 Patella Translation: 1 Supplemental Info 11/12/2024 x-ray left knee: Status post press fit total knee arthroplasty with good interfaces and position 10/03/2024 left total knee arthroplasty: Dr. Cornelius 01/26/2024 x-ray right knee: Moderate medial compartment narrowing of note there is no sunrise view 01/26/2024 x-ray left knee: Moderate to severe medial compartment narrowing with varus deformity worse on flexion view of note there is no sunrise view Coding Level of Care Code Global Post Op Diagnoses Orthopedic aftercare Z47.89 Assessment and Plan Assessment and Plan (1) Orthopedic aftercare: Status: Acute Orders: Orders Knee 3 Views Today Z96.652 - Presence of left artificial knee joint Plan Patient is here today for 6 weeks post-op left total knee arthroplasty robotic assisted dos:10/03/24. Spoke with patient that he has gained asad (more content not included)... Normal [facility] Orthopedic Visit Reporton Orthopedic Visit Report [facility] [facility] [address] [place] [address] OFFICE VISIT Date of Service: 10/15/24 MR#: [id number] Acct: [id number] Name: GAEL JIMENEZ Jr. Rep #: [id number] : 1955 Provider: Dr. Gabriel Lepe so, DO Age/Sex: 69/M Location: [facility] Status: Signed Intake Vital Signs 08/17/24 08:02 10/03/24 17:14 Height 5 ft 6 in 5 ft 7 in Intake Visit Reasons: left knee Allergies No Known Allergies Allergy (Verified 10/15/24 09:22) Medications ???Medication ???Instructions ???Recorded ???Confirmed ???Type omeprazole 40 mg capsule,delayed 40 mg PO DAILY GERD 12/02/22 10/15/24 History release amlodipine 5 mg tablet 5 mg PO QDAY BP 08/14/24 10/15/24 History aspirin 81 mg tablet,delayed 81 mg PO QDAY SUPPLEMENT 08/14/24 10/15/24 History release (Adult Low Dose Aspirin) atorvastatin 40 mg tablet 40 mg PO QHS CHOLESTEROL 08/14/24 10/15/24 History cholecalciferol (vitamin D3) 25 25 mcg PO QDAY SUPPLEMENT 08/14/24 10/15/24 History mcg (1,000 unit) tablet levothyroxine 200 mcg tablet 400 mcg PO SA THYROID 08/14/24 10/15/24 History (Synthroid) tamsulosin 0.4 mg capsule (Flomax) 0.8 mg PO QHS PROSTATE 08/14/24 10/15/24 History loratadine 10 mg tablet 10 mg PO DAILY ALLERGIES 09/19/24 10/15/24 History (Allerclear) acetaminophen 500 mg tablet 1,000 mg (2 x 500 mg) PO Q6H #90 10/04/24 10/15/24 Rx tabs apixaban 2.5 mg tablet (Eliquis) 2.5 mg PO BID 21 days #42 tabs 10/04/24 10/15/24 Rx oxycodone 5 mg tablet 5 - 10 mg (1 - 2 x 5 mg) PO Q4H 10/04/24 10/15/24 Rx PRN pain 7 days #60 tabs etodolac 500 mg tablet 500 mg PO BID pain #60 tabs 10/15/24 10/15/24 Rx Have you fallen in the past year?: Yes PFSH Medical History Loss of hearing Migraine headache Injury of head and neck Syncope History of echocardiogram Cardiology follow-up encounter DVT (deep venous thrombosis) Ischemic stroke Osteoarthritis Vitamin D deficiency BPH (benign prostatic hyperplasia) GERD (gastroesophageal reflux disease) Essential hypertension Hyperlipidemia Hypothyroidism Wears glasses Cancer Back pain CPAP (continuous positive airway pressure) dependence Shortness of breath on exertion Leg cramps History of pain when walking History of stress test History of irregular heartbeat HNP (herniated nucleus pulposus), lumbar Melanoma Lower back pain Surgical History History of colonoscopy S/P laminectomy Hx of ventral hernia repair Hx of knee surgery Family History Father CVA (cerebral vascular accident) Other Arthritis Diabetes Social History Smoking Status: Never smoker alcohol intake: never substance use type: does not use caffeine: Yes HPI left knee Details: This documentation accurately reflects the service provided and the decisions made by me, Dr. Gabriel Cornelius, DO 10/15/24 0753. Part of today???s visit was documented by María LOPEZ, acting as scribe. GAEL JIMENEZ is a 69 year old M here today for 2 week post-op left total knee arthroplasty robotic assisted dos: 10/03/24. He is still taking the oxycodone and Eliquis. He is doing PT which is coming along. Ortho Exam General General: Yes no acute distress Neurologic: Yes alert and Yes oriented x3 Psychologic: Yes reasonable and appropriate Right Knee Patella Translation: 1 Left Knee Date of Surgery: 10/03/24 Skin/Wound: Yes ecchymosis, No erythema and Yes swelling Homans Sign: No Knee ROM: No ROM-Extension -20 to 0 (6) and No ROM-Flexion 0-140 (78) Stability: NML: Valgus 0, NML: Valgus 30 and NML: Varus 0 Patella Translation: 1 KNEE: [place] removed incision well-approximated no signs of infection he is nontender in his calf. Supplemental Info 10/03/2024 left total knee arthroplasty: Dr. Cornelius 01/26/2024 x-ray right knee: Moderate medial compartment narrowing of note there is no sunrise view 01/26/2024 x-ray left knee: Moderate to severe medial compartment narrowing with varus deformity worse on flexion view of note there is no sunrise view Coding Level of Care Code Global Post Op Diagnoses Status post total left knee replacement Z96.652 Laterality: left Orthopedic aftercare Z47.89 Assessment and Plan Assessment and Plan (1) S/P total knee arthroplasty: Status: Acute Qualifiers: Laterality: left Qualified Code(s): Z96.652 - Presence of left artificial knee joint (2) Orthopedic aftercare: Status: Acute Medications: New etodolac May start day after the completion of blood thinner(Eliquis). Do not take in conjunction with other NSAID. Tylenol is okay. 500 mg P (more content not included)... Normal [facility] Urine Cultureon 10-11-2024 URC Below infection leve l. GNR lactose radio communications mechanician [place] Count <1000 Normal [facility] Comment on above: Performed By: #### L 501.9985, L501.9520, L100.0100, L500.4050, L506.1001, L500.4100 #### [facility] [address] [place], [place], [address] CBC W/Diff, Automatedon 09-28 Absolute Lymph 1.55 X10 3/uL Normal 0.83-4.51 [facility] Comment on above: Performed By: #### L 501.9985, L501.9520, L100.0100, L500.4050, L506.1001, L500.4100 #### [facility] [address] [place], [address] Absolute Neut 7.2 X10 3/uL Normal 2.0-7.7 [facility] Comment on above: Performed By: #### L 501.9985, L501.9520, L100.0100, L500.4050, L506.1001, L500.4100 #### [facility] [address] [place], [address] Basophils/100 WBC (Bld) 0.3 % Normal 0-1 [facility] Comment on above: Performed By: #### L 501.9985, L501.9520, L100.0100, L500.4050, L506.1001, L500.4100 #### [facility] [address] [place], [address] Eosinophils/100 WBC (Bld) 5.6 % High 0-5 [facility] Comment on above: Performed By: #### L 501.9985, L501.9520, L100.0100, L500.4050, L506.1001, L500.4100 #### [facility] [address] [place], [address] Erythrocyte distribution width (RBC) [Ratio] 13.2 % Normal 11.6-14.6 [facility] Comment on above: Performed By: #### L 501.9985, L501.9520, L100.0100, L500.4050, L506.1001, L500.4100 #### [facility] [address] [place], [address] Hematocrit (Bld) [Volume fraction] 42.0 % Normal 40-54 [facility] Comment on above: Performed By: #### L 501.9985, L501.9520, L100.0100, L500.4050, L506.1001, L500.4100 #### [facility] [address] [place], [address] Hemoglobin (Bld) [Mass/Vol] 13.8 g/dL Normal 13.0-16.5 [facility] Comment on above: Performed By: #### L 501.9985, L501.9520, L100.0100, L500.4050, L506.1001, L500.4100 #### [facility] [address] [place], [address] IG% 0.500 Normal 0.0-0.9 [facility] Comment on above: Result Comment: IG% - Immature Granulocytes (promyelocytes, myelocytes and metamyelocytes) > 1% indicates that a LEFT SHIFT is Present. Performed By: #### L 501.9985, L501.9520, L100.0100, L500.4050, L506.1001, L500.4100 #### [facility] [address] [place], [address] Lymphocytes/100 WBC (Bld) 14.9 % Low 19-41 [facility] Comment on above: Performed By: #### L 501.9985, L501.9520, L100.0100, L500.4050, L506.1001, L500.4100 #### [facility] [address] [place], [address] MCH (RBC) [Entitic mass] 29.9 pg Normal 27.0-32.0 [facility] Comment on above: Performed By: #### L 501.9985, L501.9520, L100.0100, L500.4050, L506.1001, L500.4100 #### [facility] [address] [place], [address] MCHC (RBC) [Mass/Vol] 32.9 g/dL Normal 32-36 [facility] Comment on above: Performed By: #### L 501.9985, L501.9520, L100.0100, L500.4050, L506.1001, L500.4100 #### [facility] [address] [place], [address] MCV (RBC) [Entitic vol] 90.9 fL Normal 80-94 [facility] Comment on above: Performed By: #### L 501.9985, L501.9520, L100.0100, L500.4050, L506.1001, L500.4100 #### [facility] [address] [place], [address] Monocytes/100 WBC (Bld) 9.3 % Normal 0-10 [facility] Comment on above: Performed By: #### L 501.9985, L501.9520, L100.0100, L500.4050, L506.1001, L500.4100 #### [facility] [address] [place], [address] Neutrophils/100 WBC (Bld) 69.4 % Normal 47-70 [facility] Comment on above: Performed By: #### L 501.9985, L501.9520, L100.0100, L500.4050, L506.1001, L500.4100 #### [facility] [address] [place], [address] Nucleated RBC (Bld) [#/Vol] 0 10*3/uL Normal 0-5 [facility] Comment on above: Performed By: #### L 501.9985, L501.9520, L100.0100, L500.4050, L506.1001, L500.4100 #### [facility] [address] [place], [address] Platelet mean volume (Bld) [Entitic vol] 8.1 fL Normal 6.2-12.0 [facility] Comment on above: Performed By: #### L 501.9985, L501.9520, L100.0100, L500.4050, L506.1001, L500.4100 #### [facility] [address] [place], [address] Platelets (Bld) [#/Vol] 404 10*3/uL Normal 150-450 [facility] Comment on above: Performed By: #### L 501.9985, L501.9520, L100.0100, L500.4050, L506.1001, L500.4100 #### [facility] [address] [place], [address] RBC (Bld) [#/Vol] 4.62 10*6/uL Normal 4.6-6.2 [facility] Comment on above: Performed By: #### L 501.9985, L501.9520, L100.0100, L500.4050, L506.1001, L500.4100 #### [facility] [address] [place], [address] RDW SD 43.7 fl Normal 35.1-43.9 [facility] Comment on above: Performed By: #### L 501.9985, L501.9520, L100.0100, L500.4050, L506.1001, L500.4100 #### [facility] [address] [place], [address] WBC (Bld) [#/Vol] 10.4 10*3/uL Normal 4.4-11.0 [facility] Comment on above: Performed By: #### L 501.9985, L501.9520, L100.0100, L500.4050, L506.1001, L500.4100 #### [facility] [address] [place], [address] Venous Duplex US, Unilateral on 10-10-2024 Venous Duplex US, Unilateral [facility] [address] [place] [address] Venous Duplex US, Unilateral 10/10/24 1434 MR#: [id number] Acct: [id number] Name: GAEL JIMENEZ Jr. Rep #: [id number] : 1955 69 From: Keith Andrea MD Attending Dr: Dr. Marco Kilgore MD Status: REG CLI Ordering Dr: Marco Kilgore MD Date: 10/10/24 Location: CVS Sex: M C Admitted: Reason For Study: HX DVT RIGHT LEFT CFV is compressible, spontaneous, phasic, GSV is normal. competent and demonstrates normal CFV is compressible, spontaneous, phasic, augmentation. competent, and demonstrates normal Procedure augmentation. This is a venous duplex using B-mode, color FV is compressible, spontaneous, phasic, flow and spectral Doppler. competent and demonstrates normal Exam performed in department. augmentation. A preliminary report was called and/or faxed POP V is compressible, spontaneous, phasic, to Dr. Kilgore. competent and demonstrates normal augmentation. T/P Trunk is compressible. PTV is compressible. LT PerV is compressible. VL/Venous Duplex US, Unilateral Interpretation Summary Deep veins of the left lower extremity are patent and compressible segmentally. There is no evidence of left lower extremity deep vein thrombosis. The left great saphenous vein appears patent and compressible segmentally. Ordering Physician: Marco Kilgore Chi Referring Physician: Marco Kilgore Chi Performed By: Damien Underwood RVT and Student 10/11/24 1418 Date Keith Andrea MD CC: Dr. Marco Kilgore MD Date Dictated: 10/10/24 1434 Date Transcribed: 10/11/241417 Shirt Marker: Signed Normal [facility] CBC-Complete Blood Cnt No Di ffon 10-06-2024 HCT Normal 40-54 [facility] Comment on above: Result Comment: Canc elled via OM: Order cancelled - Patient discharged Performed By: #### L 100.0500 #### [facility] [address] [place], [address] HGB Normal 13.0-16.5 [facility] Comment on above: Result Comment: Canc elled via OM: Order cancelled - Patient discharged Performed By: #### L 100.0500 #### [facility] [address] [place], [address] MCH Normal 27.0-32.0 [facility] Comment on above: Result Comment: Canc elled via OM: Order cancelled - Patient discharged Performed By: #### L 100.0500 #### [facility] [address] [place], [address] MCHC Normal 32-36 [facility] Comment on above: Result Comment: Canc elled via OM: Order cancelled - Patient discharged Performed By: #### L 100.0500 #### [facility] [address] [place], [address] MCV Normal 80-94 [facility] Comment on above: Result Comment: Canc elled via OM: Order cancelled - Patient discharged Performed By: #### L 100.0500 #### [facility] [address] [place], [address] PLT Normal 150-450 [facility] Comment on above: Result Comment: Canc elled via OM: Order cancelled - Patient discharged Performed By: #### L 100.0500 #### [facility] [address] [place], [address] RBC Normal 4.6-6.2 [facility] Comment on above: Result Comment: Canc elled via OM: Order cancelled - Patient discharged Performed By: #### L 100.0500 #### [facility] [address] [place], [address] RDW CV Normal 11.6-14.6 [facility] Comment on above: Result Comment: Canc elled via OM: Order cancelled - Patient discharged Performed By: #### L 100.0500 #### [facility] [address] [place], [address] RDW SD Normal 35.1-43.9 [facility] Comment on above: Result Comment: Canc elled via OM: Order cancelled - Patient discharged Performed By: #### L 100.0500 #### [facility] [address] [place], [address] WBC Normal 4.4-11.0 [facility] Comment on above: Result Comment: Canc elled via OM: Order cancelled - Patient discharged Performed By: #### L 100.0500 #### [facility] [address] [place], [address] CBC-Complete Blood Cnt No Di ffon 10-05-2024 HCT Normal 40-54 [facility] Comment on above: Result Comment: Canc elled via OM: Order cancelled - Patient discharged Performed By: #### L 100.0500 #### [facility] [address] [place], [address] HGB Normal 13.0-16.5 [facility] Comment on above: Result Comment: Canc elled via OM: Order cancelled - Patient discharged Performed By: #### L 100.0500 #### [facility] [address] [place], [address] MCH Normal 27.0-32.0 [facility] Comment on above: Result Comment: Canc elled via OM: Order cancelled - Patient discharged Performed By: #### L 100.0500 #### [facility] [address] [place], [address] MCHC Normal 32-36 [facility] Comment on above: Result Comment: Canc elled via OM: Order cancelled - Patient discharged Performed By: #### L 100.0500 #### [facility] [address] [place], [address] MCV Normal 80-94 [facility] Comment on above: Result Comment: Canc elled via OM: Order cancelled - Patient discharged Performed By: #### L 100.0500 #### [facility] [address] [place], [address] PLT Normal 150-450 [facility] Comment on above: Result Comment: Canc elled via OM: Order cancelled - Patient discharged Performed By: #### L 100.0500 #### [facility] [address] [place], [address] RBC Normal 4.6-6.2 [facility] Comment on above: Result Comment: Canc elled via OM: Order cancelled - Patient discharged Performed By: #### L 100.0500 #### [facility] [address] [place], [address] RDW CV Normal 11.6-14.6 [facility] Comment on above: Result Comment: Canc elled via OM: Order cancelled - Patient discharged Performed By: #### L 100.0500 #### [facility] [address] [place], [address] RDW SD Normal 35.1-43.9 [facility] Comment on above: Result Comment: Canc elled via OM: Order cancelled - Patient discharged Performed By: #### L 100.0500 #### [facility] [address] [place], [address] WBC Normal 4.4-11.0 [facility] Comment on above: Result Comment: Canc elled via OM: Order cancelled - Patient discharged Performed By: #### L 100.0500 #### [facility] [address] [place], [address] Basic Metabolic Profile (BMP )on 10-04-2024 BUN/CRE 14.2 RATIO Normal 10-20 [facility] Comment on above: Performed By: #### L 100.0500 #### [facility] [address] [place], [address] CA,Total 8.5 mg/dL Normal 8.5-10.1 [facility] Comment on above: Performed By: #### L 100.0500 #### [facility] [address] [place], [address] Chloride [Moles/Vol] 108 mmol/L High 98-107 [facility] Comment on above: Performed By: #### L 100.0500 #### [facility] [address] [place], [address] CO2 [Moles/Vol] 24.0 mmol/L Normal 21.0-32.0 [facility] Comment on above: Performed By: #### L 100.0500 #### [facility] [address] [place], [address] Creatinine [Mass/Vol] 1.13 mg/dL Normal 0.70-1.30 [facility] Comment on above: Result Comment: The validity of the calculated GFR GFRAA in patients over 70 years has not been determined. Clinical correlation is essential. Performed By: #### L 100.0500 #### [facility] [address] [place], [address] ECRCL 67.90 ml/min Normal [facility] Comment on above: Performed By: #### L 100.0500 #### [facility] [address] [place], [address] EST GFR - AA 82 mL/min Normal >60 [facility] Comment on above: Result Comment: Afri can Cymro GFR Calc Performed By: #### L 100.0500 #### [facility] [address] [place], [address] GAP 5 Normal 5-15 [facility] Comment on above: Performed By: #### L 100.0500 #### [facility] [address] [place], [address] GFR/1.73 sq M.predicted among non-blacks MDRD (S/P/Bld) [Vol rate/Area] 68 mL/min/{1.73_m2} Normal >60 [facility] Comment on above: Result Comment: Non- GFR Calc Performed By: #### L 100.0500 #### [facility] [address] [place], [address] Glucose [Mass/Vol] 145 mg/dL High 74-106 [facility] Comment on above: Result Comment: Fast ing Glucose result greater than or equal to 126 mg/dL suggests DIABETES MELLITUS per A.D.A. criteria. Performed By: #### L 100.0500 #### [facility] [address] [place], [address] Potassium [Moles/Vol] 4.2 mmol/L Normal 3.5-5.1 [facility] Comment on above: Performed By: #### L 100.0500 #### [facility] [address] [place], [address] Sodium [Moles/Vol] 137 mmol/L Normal 136-145 [facility] Comment on above: Performed By: #### L 100.0500 #### [facility] [address] [place], [address] Urea nitrogen [Mass/Vol] 16 mg/dL Normal 7-18 [facility] Comment on above: Performed By: #### L 100.0500 #### [facility] [address] [place], [address] CBC-Complete Blood Cnt No Di ffon 10-04-2024 Erythrocyte distribution width (RBC) [Ratio] 12.9 % Normal 11.6-14.6 [facility] Comment on above: Performed By: #### L 100.0500, L500.2500 #### [facility] [address] [place], [address] Hematocrit (Bld) [Volume fraction] 40.0 % Normal 40-54 [facility] Comment on above: Performed By: #### L 100.0500, L500.2500 #### [facility] [address] [place], [address] Hemoglobin (Bld) [Mass/Vol] 13.2 g/dL Normal 13.0-16.5 [facility] Comment on above: Performed By: #### L 100.0500, L500.2500 #### [facility] [address] [place], [address] MCH (RBC) [Entitic mass] 30.0 pg Normal 27.0-32.0 [facility] Comment on above: Performed By: #### L 100.0500, L500.2500 #### [facility] [address] [place], [address] MCHC (RBC) [Mass/Vol] 33.0 g/dL Normal 32-36 [facility] Comment on above: Performed By: #### L 100.0500, L500.2500 #### [facility] [address] [place], [address] MCV (RBC) [Entitic vol] 90.9 fL Normal 80-94 [facility] Comment on above: Performed By: #### L 100.0500, L500.2500 #### [facility] [address] [place], [address] Platelet mean volume (Bld) [Entitic vol] 9.0 fL Normal 6.2-12.0 [facility] Comment on above: Performed By: #### L 100.0500, L500.2500 #### [facility] [address] [place], [address] Platelets (Bld) [#/Vol] 276 10*3/uL Normal 150-450 [facility] Comment on above: Performed By: #### L 100.0500, L500.2500 #### [facility] [address] [place] [place], [address] RBC (Bld) [#/Vol] 4.40 10*6/uL Low 4.6-6.2 [facility] Comment on above: Performed By: #### L 100.0500, L500.2500 #### [facility] [address] [place], [address] RDW SD 42.7 fl Normal 35.1-43.9 [facility] Comment on above: Performed By: #### L 100.0500, L500.2500 #### [facility] [address] [place] [place], [address] WBC (Bld) [#/Vol] 13.3 10*3/uL High 4.4-11.0 [facility] Comment on above: Performed By: #### L 100.0500, L500.2500 #### [facility] [address] [place], [address] Discharge Instructionon 11-0 Discharge Instruction [facility] Medical Records Department [address] [place] [address] Instructions for Home/Discharge Instructions 10/04/24 1019 MR#: [id number] Acct: [id number] Name: GAEL JIMENEZ Jr. Rep #: [id number] : 1955 69 From: Gabriel Cornelius DO PCP: Dr. Marco Kilgore MD Status:ADM IN Discharge Instructions Diet Discharge Diet: No restrictions Dressing / Incision Call your doctor if you observe: Shortness of breath and Chest pain Additional Dressing/Incision Instructions:: Ice and elevate lower extremities 2 weeks while not ambulating. Ambulation is encouraged. Weight bearing as tolerated. Use assistive devise for stability. Encourage FULL knee extension and flexion 1 time EVERY time you get up and down and MULTIPLE times per day. No showering until 72 hours after surgery. May begin showering postop day #3. Remove the dressing prior to shower and gently wash with warm water and antibacterial soap then pat dry and place abdominal pad (or plain gauze) and MARIIA hose over top. This is to be done daily. Do not submerge for 3 weeks. If not showering daily after the initial 72 hours then you must clean incision and change dressing daily after the dressing comes off, must come off by 7 days postop. Do not allow animals near the incision area. Keep clean. Follow anti-coagulation recommendations as prescribed. Do not take any NSAIDs while on blood thinner. Do not take any additional narcotic pain medication other than what was prescribed on your surgery day without discussing with physician. Narcotic medication can be addictive. Do not drink alcohol while taking narcotics. Supplement narcotic prescription with acetaminophen 1000 mg 4 times a day. Start physical therapy. If you are not currently scheduled for physical therapy or you are unsure of appointment time please call office [facility] to arrange. Call Dr. Cornelius with any concerns. Follow Up Care Please Follow Up With: Gabriel Cornelius DO When: 2 weeks Test Results: Test results from this visit will be discussed in further detail at your follow-up appointment, if applicable. Discharge Plan Admission Admit Date/Time: 10/03/24 08:51 Primary Reason for Your Visit: Left total knee arthroplasty Attending Provider: Gabriel Cornelius Primary Care Provider: Marco Kilgore Chi Discharge Orders/Prescriptions Prescriptions: New oxycodone 5 mg tablet 5 - 10 mg PO Q4H PRN (Reason: pain) 7 Days Qty: 60 0RF acetaminophen 500 mg tablet 1,000 mg PO Q6H Qty: 90 2RF Eliquis 2.5 mg tablet 2.5 mg PO BID 21 Days Qty: 42 0RF Continued omeprazole 40 mg capsule,delayed release(DR/EC) 40 mg PO DAILY tamsulosin [Flomax] 0.4 mg capsule 0.8 mg PO QHS levothyroxine [Synthroid] 200 mcg tablet 400 mcg PO SA amlodipine 5 mg tablet 5 mg PO QDAY cholecalciferol (vitamin D3) 25 mcg (1,000 unit) tablet 25 mcg PO QDAY aspirin [Adult Low Dose Aspirin] 81 mg tablet,delayed release (DR/EC) 81 mg PO QDAY atorvastatin 40 mg tablet 40 mg PO QHS loratadine [Allerclear] 10 mg tablet 10 mg PO DAILY Referrals / Follow Up: Marco Kilgore Chi, MD [Primary Care Provider] - Disposition Disposition (needs filled in before D/C Order can be placed): Home, Self Care 10/04/24 Amber Cornelius DO CC: Dr. Marco Kilgore MD Signed Normal [facility] Bedside Glucoseon 10-03-2024 FINGERSTICK GLU 157 mg/dL High 74-106 [facility] Comment on above: Result Comment: LIZ FARRELL OF PATIENT CARE PER NURSING PROTOCOL Performed By: #### L 100.0500 #### [facility] [place], [address] Decalcification bone/plaqueo n 10-03-2024 Decalcification bone/plaque Patient Age/Sex Location Account Attending Physician GAEL JIMENEZ Jr. 69/M MS3 [id number] Dr. Gabriel Cornelius DO Specimen: [id number] Received: 10/03/24 Status: SVETLANA Coon Num: [id number] Spec Type: TOTAL KNEE Subm Dr: Dr. Gabriel Cornelius, [facility] OPERATION: Left total knee replacement robotic arm assist PRE-OP DIAGNOSIS: Left knee degenerative joint disease TISSUE SUBMITTED: Left knee bone and tissue MICROSCOPIC DIAGNOSIS Bone and tissue of left knee, total knee resection: Severe degenerative joint disease. AM: 10/08/2024 MICROSCOPIC DESCRIPTION Slides are reviewed. GROSS DESCRIPTION Received is one container designated bone and soft tissue left knee. The specimen consists of multiple fragments of lomeli-yellow bone measuring in aggregate 9.0 x 8.0 x 3.0 cm. No soft tissue is identified. A number of bony fragments contain articular surfaces consistent with tibial plateau and femoral condyle and displaying prominent osteophyte formation, eburnation and bone erosion. Manager Military sections are submitted in one cassette after decalcification. / 10/04/2024 TC:5 CPT: 71675, 64125 Patient Age/Sex Location Account Attending Physician GAEL JIMENEZ 69/M MS3 [id number] Dr. Gabriel Cornelius, DO Signed (signature on file) Dr. Jaquan Presley DO 10/08/24 1135 Normal [facility] Comment on above: Performed By: #### L 501.9985, L501.9520, L100.0100, L500.4050, L506.1001, L500.4100 #### [facility] [address] [facility] [place], [place], [address] Knee 1 or 2 Viewson 10-03-20 24 Knee 1 or 2 Views [facility] Imaging Services [address] [place], [place] [address] Knee 1 or 2 Views MR#: [id number] Acct: [id number] Name: JIMENEZGAEL Jr. Rep #: [id number] : 1955 M 69 From: Antonio childs MD PCP: Dr. Marco Kilgore MD Status: ADM IN Study: Knee 1 or 2 Views Date of Exam: 10/03/24 Exam# [id number] Ordering Dr: Gabriel Cornelius DO [id number] STUDY: X-RAY - LEFT KNEE REASON FOR EXAM: Male, 69 years old. Post op -- AP and Lateral xray of operative knee in PACU TECHNIQUE: 2 view(s) of the knee. COMPARISON: Comparison is made with prior study of January 26, 2024. FINDINGS: Normal visualized distal femur. Normal visualized proximal tibia and fibula. Normal proximal tibiofibular articulation. The patient is status post total knee replacement. There is good alignment. Postoperative soft tissue changes. RAD/Knee 1 or 2 Views IMPRESSION: Status post left total knee replacement. There is good alignment. Postoperative soft tissue changes. Electronically Signed: Antonio Landrum MD at 14:06 EST Reading Location ID and State: [address] [place] [address] , Service support , CC: Dr. Gabriel Cornelius DO; Dr. Marco Kilgore MD Shirt Marker: Signed [facility] MR/POSTOP.[facility] 10-03-2024 MR/POSTOP.[facility] Medical Records Department [address] [place] [address] Anesthesia Postop Eval I 10/03/24 1339 MR#: [id number] Acct: [id number] Name: GAEL JIMENEZ Rep #: [id number] : 1955 69 From: Vicki Panda PCP: Dr. Marco Kilgore MD Status:ADM IN Y Race: C Location: [place] [address] Anesthesia: Postop Eval I Current Vital Signs Temperature: 97.2 F Pulse Rate: 76 Blood Pressure: 108/59 Respiratory Rate: 18 Pulse Ox: 93 Oxygen Delivery Method: Nasal Cannula Oxygen Flow Rate (L/min): 4 EtCo2 (Normal 35-45 , high quality CPR 10-20 ROSC>/=40mmHg): 36 Assessment Airway patent: Yes Spontaneous unlabored respirations: Yes Mental status: Awake and Calm nausea: No Vomiting: No Anesthesia Complication: No Fluid Hydration Crystalloid volume administer (ml): 1,000 Total IV fluid infused: 1,000 Progress Note Anesthesia document: Postop Eval 1 completed: Yes 10/03/24 1340 Date Vicki Bernsteinignanuj Signature: Date CC: Signed Normal [facility] MR/[id number] 10-03-2024 MR/POSTOPAN2 [facility] Medical Records Department [address] [place] [address] Anesthesia Postop Eval II 10/03/24 1646 MR#: [id number] Acct: [id number] Name: GAEL JIMENEZ Jr. Rep #: [id number] : 1955 69 From: Elijah Farnsworth MD PCP: Dr. Marco Kilgore MD Status:ADM IN Y Race: C Location: [place] [address] Anesthesia Postop Eval I Sum Postop Eval Completion status Anesthesia document: Postop Eval 1 completed: Yes Anesthesia Postop Eval I Summary Anesthesia Postop Eval I Summary: Anesthesia Postop Eval I: Assessment Summary Airway patent Yes 10/03/24 13:40 DIRECTOR OF HEAD START.CSIR Spontaneous unlabored Yes 10/03/24 13:40 DIRECTOR OF HEAD START.CSIR respirations Mental status Awake,Calm 10/03/24 13:40 DIRECTOR OF HEAD START.CSIR nausea No 10/03/24 13:40 DIRECTOR OF HEAD START.CSIR Vomiting No 10/03/24 13:40 DIRECTOR OF HEAD START.CSIR Anesthesia Postop Eval I: Fluid Summary Crystalloid volume administer 1,000 10/03/24 13:40 DIRECTOR OF HEAD START.CSIR (ml) Colloids volume administered ( ml) Blood Product volume administered (ml) Total IV fluid infused 1,000 10/03/24 13:40 DIRECTOR OF HEAD START.CSIR Anesthesia Postop Eval I: Summary Notes Anesthesia Complication No 10/03/24 13:40 DIRECTOR OF HEAD START.CSIR Anesthesia Complication Comment: Post-operative progress note Anesthesia: Postop Eval II Evaluation Mental status: Awake and Calm Pain Level: 1 nausea: No Vomiting: No Complications Anesthesia Complication: No 10/03/24 1647 Date Elijah Farnsworth MD Cosigner Signature: Date CC: Signed Normal [facility] Operative Reporton 4 Operative Report [facility] Medical Records Department [address] [place] [address] Operative Report 10/03/24 1327 MR#: [id number] Acct: [id number] Name: GAEL JIMENEZ Jr. Rep #: [id number] : 1955 69 From: Gabriel Cornelius DO PCP: Dr. Marco Kilgore MD Status:ADM IN Location: [place] [address] Operative Report (Standard) Operative Information Surgery/Procedure Performed: Left total knee Surgeon: Gabriel Cornelius Date of Procedure: 10/03/24 Procedure Start Time: 11:29 Procedure Stop Time: 13:20 Pre-Operative Diagnosis: Left knee DJD Post-Operative Diagnosis: Same Select all DRAINS/GRAFTS/IMPLANTS that apply: None Type of Anesthesia: Spinal Estimated Blood Loss: 175 Specimen collected: Yes Description of specimen(s) removed: Bone Description of surgery: Preoperative diagnosis: Left knee DJD Postoperative diagnosis: Same Procedure: Left total knee arthroplasty CT guided Robotic Assisted Implant: Hilda triathlon press fit, femoral component size 4, tibial baseplate size 5, asymmetric patella size 35, polyethylene X3 size 9 CS Anesthesia: Spinal with adductor canal block Tourniquet time: 13 minutes at 300 mmHg Complications: None Condition: Stable to PACU Estimated blood loss: 175 cc Software Application Tester Thong Ken. My physician secretary administrative assistant was a vital part of this case. He was important in appropriate retraction during the case, and protection of soft tissues during procedure. His intimate knowledge of the case and my steps aided in safe and expedient completion of the procedure as well as appropriate position of the extremity during the case. He was also vital in assisting with closure under my direct supervision. Indication for procedure: This is a 69-year-old male with long standing degenerative joint disease of the knee who has failed conservative treatment and wished to proceed with elective total knee arthroplasty. Risk benefits and alternatives were reviewed including; risk of bleeding, infection, nerve artery and tissue damage, continued pain, postoperative stiffness, venous thromboembolism, need for postoperative rehabilitation, mechanical feel to the knee, and expected postoperative course. The pre- operative CT and templating was performed with component sizing. Procedure: The patient was met in the preoperative holding area. The operative extremity was identified by both patient and physician and was marked. Patient was met by anesthesia. An adductor canal block was placed by anesthesia postoperatively the patient was brought back to the operating room on a wheeled cart and transferred to the operating table in the supine position. Anesthesia was started. A well-padded tourniquet was placed on the operative extremity. The patient was prepped and draped in the usual sterile fashion. A timeout was called to ensure the proper patient procedure and extremity were being contemplated. An esmarch was used to exsanguinate the extremity. The tourniquet was inflated. A 10 blade scalpel was used to make a midline incision down through the skin and subcutaneous tissue. Skin retractors placed. Bovie and Aquamantis were used to perform meticulous hemostasis. full-thickness flaps were elevated medial and lateral along the joint capsule. A deep blade scalpel was used to perform a medial parapatellar arthrotomy. The knee was brought to full extension. A bovie was used to release the soft tissues off the most proximal aspect of the medial tibial plateau, a three-quarter inch curved osteotome was also used in this process. The infrapatellar fat pad was excised. The suprapatellar fat pad was excised partially anteriorolateraly and portion the anterioromedial pad was elevated from the femur. At this point our intra-articular femoral array was placed at a 45 degree angle proximal and posterior to the medial epicondyle. femoral checkpoint was placed at this time. [Our tibial array was placed extra incisional with a 15 blade scaple, and pins were placed and attached to the tibial array , tibial checkpoint was placed in the proximal tibial metaphysis. Tourniquet was let down. At this point registration sanz were taken throughout the knee . Once the knee was registered we then tensioned the medial and lateral ligaments in extension and 90 degrees of flexion. We then used these numbers to adjust our components within parameters to balance the knee in both flexion and extension once this was done on our monitor we then proceeded with using the robotic arm to make our tibial plateau cut, anterior and posterior chamfer and distal femur cuts. we removed the cut fragments with the use of a bovie and Elieser, we did use a lamina spacecraft systems engineer to insure we visualized and removed all posterior osteophytes and at this time also used the Aquamantis on the posterior joint capsule. we then trialed and achieved the desired plan with a well-balanced knee. we use (more content not included)... Normal [facility] Fructosamineon 09-21-2024 FRUCTOSAMINE 256 umol/L Normal 0-285 [facility] Comment on above: Result Comment: Publ ished reference interval for apparently healthy subjects between age 20 and 60 is 205 - 285 umol/L and in a poorly controlled diabetic population is 228 - 563 umol/L with a mean of 396 umol/L. Performed at: [facility] [id number] Product Applications Scientist: Heath Vidal PhD, Phone: [phone] Performed By: #### L 501.9967, L501.8654, L100.0100, L500.4050, L506.1001, L500.4100 #### [facility] [address] [place], [address] MRSA/SAID NASAL SCREENon MRSA+SAID SCRN Reason for Exam: PRE OP Copy of report sent to Infection Control Printer MS#[id number] 09/21/24 3302 RAMEZ. MRSA MRSA Negative S. AUREUS S. aureus PositiveA Normal [facility] Comment on above: Performed By: #### L 501.9985, L501.9520, L100.0100, L500.4050, L506.1001, L500.4100 #### [facility] [address] [place], [address] Extremity Lower without Cont raon 09-19-2024 Extremity Lower without Contra [facility] Imaging Services [address] [place] [address] Extremity Lower without Contra MR#: [id number] Acct: [id number] Name: GAEL JIMENEZ Jr. Rep #: [id number] : 1955 M 69 From: Octaviano Cassidy MD PCP: Dr. Marco Kilgore MD Status: REG CLI Study: Extremity Lower without Contra Date of Exam: Exam# [id number] Ordering Dr: aGbriel Cornelius DO [id number] CT LEFT LOWER EXTREMITY WITH 3-D IMAGING CLINICAL INDICATION: Templating for left TKA. TECHNIQUE: Axial CT images of the left lower extremity (including left hip, left knee, and left ankle) was performed without IV contrast material. Coronal and sagittal reformats were provided. The protocol utilizes one or more of the following dose reduction techniques: automated exposure control, adjustment of mA and/or kV according to patient size, and/or use of iterative reconstruction technique. RADIATION DOSAGE (If Supplied By Facility): CTDIvol = ( 18.76 ) mGy, DLP = ( 1406.71 ) mGycm COMPARISON: Left knee radiographs dated 01/26/2024. FINDINGS: Bones: There is mild degenerative arthrosis at the pubic symphysis and left hip joint. There is tricompartment degenerative arthrosis of the left knee joint, most severe in the medial femorotibial compartment, where there is moderate to severe joint space narrowing, marginal osteophyte formation, and subchondral sclerosis/cyst formation. There is tiny smooth osseous fragmentation at the anterior margin of the tibiotalar joint (axial series 2 image 558; sagittal reformat series 607 image 31). Osseous structures are intact without evidence of acute fracture or dislocation. No lytic or blastic osseous masses. Soft Tissues: There is a small left knee joint effusion. The deep soft tissue structures are unremarkable. The superficial soft tissues are unremarkable without evidence of edema, hematoma, or foreign body. CT/Extremity Lower without Contra IMPRESSION: Tricompartment degenerative arthrosis of the left knee, most severe in the medial femorotibial compartment. Small left knee joint effusion. Electronically Signed: Octaviano Cassidy MD at 15:40 EDT Reading Location ID and State: [facility] / [place] , Service support , CC: Dr. Gabriel Cornelius DO; Dr. Marco Kilgore MD Shirt Marker: Signed Normal [facility] Hemoglobin A1con 09-19-2024 HbA1c (Bld) [Mass fraction] 6.2 % High 3.8-5.6 [facility] Comment on above: Result Comment: Norm al < 5.7 % Prediabetic 5.7 - 6.4 % Diabetic >or= 6.5 % Please note range changes. Performed By: #### L 501.9985, L501.9520, L100.0100, L500.4050, L506.1001, L500.4100 #### [facility] [address] [place], [place], [address] Magnesiumon 09-19-2024 Magnesium [Mass/Vol] 2.2 mg/dL Normal 1.6-2.6 [facility] Comment on above: Performed By: #### L 100.0500 #### [facility] [address] [place], [place], [address] Orthopedic Visit Reporton Orthopedic Visit Report [facility] [address] [place] [address] [address] [place], [place] [address] OFFICE VISIT Date of Service: 09/19/24 MR#: [id number] Acct: [id number] Name: GAEL JIMENEZ Jr. Rep #: [id number] : 1955 Provider: Dr. Gabriel Lepe so, DO Age/Sex: 69/M Location: [facility].RADHA Status: Signed Intake Vital Signs 09/05/24 08:56 Height 5 ft 6 in Weight: 224 lb BMI 36.1 BP 136/87 H Blood Pressure Location Lt brachial Position Sitting Respiration 18 Pulse 67 Pulse Source Monitor Pulse Oximetry (%) 91 Oxygen Delivery Method room air Intake Visit Reasons: left knee Chief Complaint: bilateral knee pain Allergies No Known Allergies Allergy (Verified 09/19/24 08:25) Medications ???Medication ???Instructions ???Recorded ???Confirmed ???Type omeprazole 40 mg capsule,delayed 40 mg PO DAILY GERD 12/02/22 09/19/24 History release amlodipine 5 mg tablet 5 mg PO QDAY BP 08/14/24 09/19/24 History aspirin 81 mg tablet,delayed 81 mg PO QDAY SUPPLEMENT 08/14/24 09/19/24 History release (Adult Low Dose Aspirin) atorvastatin 40 mg tablet 40 mg PO QHS CHOLESTEROL 08/14/24 09/19/24 History cholecalciferol (vitamin D3) 25 25 mcg PO QDAY SUPPLEMENT 08/14/24 09/19/24 History mcg (1,000 unit) tablet levothyroxine 200 mcg tablet 400 mcg PO SA THYROID 08/14/24 09/19/24 History (Synthroid) tamsulosin 0.4 mg capsule (Flomax) 0.8 mg PO QHS PROSTATE 08/14/24 09/19/24 History loratadine 10 mg tablet 10 mg PO DAILY ALLERGIES 09/19/24 09/19/24 History (Allerclear) Have you fallen in the past year?: Yes [facility] History Loss of hearing Migraine headache Injury of head and neck Syncope History of echocardiogram Cardiology follow-up encounter DVT (deep venous thrombosis) Ischemic stroke Osteoarthritis Vitamin D deficiency BPH (benign prostatic hyperplasia) GERD (gastroesophageal reflux disease) Essential hypertension Hyperlipidemia Hypothyroidism Wears glasses Cancer Back pain CPAP (continuous positive airway pressure) dependence Shortness of breath on exertion Leg cramps History of pain when walking History of stress test History of irregular heartbeat HNP (herniated nucleus pulposus), lumbar Melanoma Lower back pain Surgical History History of colonoscopy S/P laminectomy Hx of ventral hernia repair Hx of knee surgery Family History Father CVA (cerebral vascular accident) Other Arthritis Diabetes Social History Smoking Status: Never smoker alcohol intake: never substance use type: does not use caffeine: Yes HPI left knee Details: This documentation accurately reflects the service provided and the decisions made by me, Dr. Gabriel Cornelius, DO 09/19/24 1143. Part of today???s visit was documented by María LOPEZ, acting as scribe. GAEL JIMENEZ is a 69 year old M here today for left knee IOVERA treatment Ortho Exam General General: Yes no acute distress Neurologic: Yes alert and Yes oriented x3 Psychologic: Yes reasonable and appropriate Left Knee Skin/Wound: No ecchymosis, No erythema and No swelling Knee ROM: Yes ROM-Extension -20 to 0 (-15) and Yes ROM-Flexion 0-140 (105) Examination: Yes med jt line tenderness, Yes Lat jt line tenderness, Yes Pain with flexion and No Moises's Test Stability: NML: Anterior Drawer, NML: Posterior Drawer, NML: Valgus 0, NML: Valgus 30 and NML: Varus 0 Apprehension with Lateral Translation: No Patella Grind: No KNEE: no effusion fixed va claudia deformity mild edema in lower legs Left Hip Special Tests: Yes Illiotibial band tenderness Office Procedures Iovera Procedure Details:: Preoperative diagnosis :chronic knee pain Postoperative diagnosis: Same Procedure: Cryotherapy with Iovera device to anterior femoral cutaneous nerve and 2 branches of the infrapatellar saphenous nerve. Three nerves in total. Description of procedure: Patient was brought back to the procedure room the operative extremity was identified by both patient and physician. Entire extremity was cleaned with alcohol. The superior inferior and medial lateral borders of the patella were marked followed by the center of the patella. We then measured 12 cm proximal to this and with the knee in flexion marked the medial and lateral edges of the patella continuing proximally to give us our proximal treatment line.This was our treatment line for the anterior femoral cutaneous nerve. A second treatment line was made 5 cm medial to the inferior pole of the patella and 5 cm distally. The treatment lines were then prepped with Betadine and 1 last radha (more content not included)... Normal [facility] Thyroid Stim Hormone (TSH)on 09-19-2024 TSH 2.070 uIU/mL Normal 0.358-3.740 [facility] Comment on above: Performed By: #### L 100.0500 #### [facility] [address] [place], [address] Type AND Screen - PAT ONLYon 09-19-2024 ABO and Rh group Nom (Bld) Blood group A Rh(D) positive Normal [facility] Comment on above: Order Comment: Surge ry Date: 10/03/24Reason for Laboratory Test [id number] Performed By: #### L 501.9985, L501.9520, L100.0100, L500.4050, L506.1001, L500.4100 #### [facility] [address] [place], [address] CBC W/Diff, Automatedon 08-28 Absolute Lymph 1.42 X10 3/uL Normal 0.83-4.51 [facility] Comment on above: Performed By: #### L 100.0500 #### [facility] [address] [place], [address] Absolute Neut 3.4 X10 3/uL Normal 2.0-7.7 [facility] Comment on above: Performed By: #### L 100.0500 #### [facility] [address] [place], [address] Basophils/100 WBC (Bld) 0.5 % Normal 0-1 [facility] Comment on above: Performed By: #### L 100.0500 #### [facility] [address] [place], [address] Eosinophils/100 WBC (Bld) 4.8 % Normal 0-5 [facility] Comment on above: Performed By: #### L 100.0500 #### [facility] [address] [place], [address] Erythrocyte distribution width (RBC) [Ratio] 13.1 % Normal 11.6-14.6 [facility] Comment on above: Performed By: #### L 100.0500 #### [facility] [address] [place], [address] Hematocrit (Bld) [Volume fraction] 46.7 % Normal 40-54 [facility] Comment on above: Performed By: #### L 100.0500 #### [facility] [address] [place], [address] Hemoglobin (Bld) [Mass/Vol] 15.4 g/dL Normal 13.0-16.5 [facility] Comment on above: Performed By: #### L 100.0500 #### [facility] [address] [place], [address] IG% 0.300 Normal 0.0-0.9 [facility] Comment on above: Result Comment: IG% - Immature Granulocytes (promyelocytes, myelocytes and metamyelocytes) > 1% indicates that a LEFT SHIFT is Present. Performed By: #### L 100.0500 #### [facility] [address] [place], [address] Lymphocytes/100 WBC (Bld) 23.6 % Normal 19-41 [facility] Comment on above: Performed By: #### L 100.0500 #### [facility] [address] [place], [address] MCH (RBC) [Entitic mass] 30.4 pg Normal 27.0-32.0 [facility] Comment on above: Performed By: #### L 100.0500 #### [facility] [address] [place], [address] MCHC (RBC) [Mass/Vol] 33.0 g/dL Normal 32-36 [facility] Comment on above: Performed By: #### L 100.0500 #### [facility] [address] [place], [address] MCV (RBC) [Entitic vol] 92.3 fL Normal 80-94 [facility] Comment on above: Performed By: #### L 100.0500 #### [facility] [address] [place], [address] Monocytes/100 WBC (Bld) 14.0 % High 0-10 [facility] Comment on above: Performed By: #### L 100.0500 #### [facility] [address] [place], [address] Neutrophils/100 WBC (Bld) 56.8 % Normal 47-70 [facility] Comment on above: Performed By: #### L 100.0500 #### [facility] [address] [place], [address] Nucleated RBC (Bld) [#/Vol] 0 10*3/uL Normal 0-5 [facility] Comment on above: Performed By: #### L 100.0500 #### [facility] [address] [place], [address] Platelet mean volume (Bld) [Entitic vol] 8.7 fL Normal 6.2-12.0 [facility] Comment on above: Performed By: #### L 100.0500 #### [facility] [address] [place], [address] Platelets (Bld) [#/Vol] 242 10*3/uL Normal 150-450 [facility] Comment on above: Performed By: #### L 100.0500 #### [facility] [address] [place], [address] RBC (Bld) [#/Vol] 5.06 10*6/uL Normal 4.6-6.2 [facility] Comment on above: Performed By: #### L 100.0500 #### [facility] [address] [place], [address] RDW SD 44.5 fl High 35.1-43.9 [facility] Comment on above: Performed By: #### L 100.0500 #### [facility] [address] [place], [address] WBC (Bld) [#/Vol] 6.0 10*3/uL Normal 4.4-11.0 [facility] Comment on above: Performed By: #### L 100.0500 #### [facility] [address] [place], [address] Comprehensive Metabolic Prof [facility] 09-07-2024 Albumin [Mass/Vol] 3.7 g/dL Normal 3.2-5.0 [facility] Comment on above: Performed By: #### L 501.9985, L501.9520, L100.0100, L500.4050, L506.1001, L500.4100 #### [facility] [address] [place], [address] Albumin/Globulin [Mass ratio] 1.1 {ratio} Normal 0.9-2.4 [facility] Comment on above: Performed By: #### L 501.9985, L501.9520, L100.0100, L500.4050, L506.1001, L500.4100 #### [facility] [address] [place], [address] ALK P 103 U/L Normal 45-117 [facility] Comment on above: Performed By: #### L 501.9985, L501.9520, L100.0100, L500.4050, L506.1001, L500.4100 #### [facility] [address] [place], [address] ALT [Catalytic activity/Vol] 23 U/L Normal 16-61 [facility] Comment on above: Performed By: #### L 501.9985, L501.9520, L100.0100, L500.4050, L506.1001, L500.4100 #### [facility] [address] [place], [address] AST [Catalytic activity/Vol] 19 U/L Normal 15-37 [facility] Comment on above: Performed By: #### L 501.9985, L501.9520, L100.0100, L500.4050, L506.1001, L500.4100 #### [facility] [address] [place], [address] Bilirubin [Mass/Vol] 0.60 mg/dL Normal 0.20-1.00 [facility] Comment on above: Result Comment: For patients on eltrombopag therapy, use of Dimension [place] TBIL is not recommended. Performed By: #### L 501.9985, L501.9520, L100.0100, L500.4050, L506.1001, L500.4100 #### [facility] [address] [place], [address] BUN/CRE 19.0 RATIO Normal 10-20 [facility] Comment on above: Performed By: #### L 501.9985, L501.9520, L100.0100, L500.4050, L506.1001, L500.4100 #### [facility] [address] [place], [address] CA,Total 9.1 mg/dL Normal 8.5-10.1 [facility] Comment on above: Performed By: #### L 501.9985, L501.9520, L100.0100, L500.4050, L506.1001, L500.4100 #### [facility] [address] [place], [address] Chloride [Moles/Vol] 111 mmol/L High 98-107 [facility] Comment on above: Performed By: #### L 501.9985, L501.9520, L100.0100, L500.4050, L506.1001, L500.4100 #### [facility] [address] [place], [address] CO2 [Moles/Vol] 26.0 mmol/L Normal 21.0-32.0 [facility] Comment on above: Performed By: #### L 501.9985, L501.9520, L100.0100, L500.4050, L506.1001, L500.4100 #### [facility] [address] [place], [address] Creatinine [Mass/Vol] 0.94 mg/dL Normal 0.70-1.30 [facility] Comment on above: Result Comment: The validity of the calculated GFR GFRAA in patients over 70 years has not been determined. Clinical correlation is essential. Performed By: #### L 501.9985, L501.9520, L100.0100, L500.4050, L506.1001, L500.4100 #### [facility] [address] [place], [address] EST GFR - AA 101 mL/min Normal >60 [facility] Comment on above: Result Comment: Afri can Cymro GFR Calc Performed By: #### L 501.9985, L501.9520, L100.0100, L500.4050, L506.1001, L500.4100 #### [facility] [address] [place], [address] GAP 5 Normal 5-15 [facility] Comment on above: Performed By: #### L 501.9985, L501.9520, L100.0100, L500.4050, L506.1001, L500.4100 #### [facility] [address] [place], [address] GFR/1.73 sq M.predicted among non-blacks MDRD (S/P/Bld) [Vol rate/Area] 84 mL/min/{1.73_m2} Normal >60 [facility] Comment on above: Result Comment: Non- GFR Calc Performed By: #### L 501.9985, L501.9520, L100.0100, L500.4050, L506.1001, L500.4100 #### [facility] [address] [place], [address] Globulin (S) [Mass/Vol] 3.5 g/dL Normal 2.2-4.2 [facility] Comment on above: Performed By: #### L 501.9985, L501.9520, L100.0100, L500.4050, L506.1001, L500.4100 #### [facility] [address] [place], [address] Glucose [Mass/Vol] 110 mg/dL High 74-106 [facility] Comment on above: Result Comment: Fast ing Glucose result from 100 to 125 mg/dL suggests IMPAIRED HOMEOSTASIS per A.D.A. criteria. Performed By: #### L 501.9985, L501.9520, L100.0100, L500.4050, L506.1001, L500.4100 #### [facility] [address] [place], [address] Potassium [Moles/Vol] 4.0 mmol/L Normal 3.5-5.1 [facility] Comment on above: Performed By: #### L 501.9985, L501.9520, L100.0100, L500.4050, L506.1001, L500.4100 #### [facility] [address] [place], [address] Sodium [Moles/Vol] 142 mmol/L Normal 136-145 [facility] Comment on above: Performed By: #### L 501.9985, L501.9520, L100.0100, L500.4050, L506.1001, L500.4100 #### [facility] [address] [place], [address] T PROT 7.2 g/dL Normal 6.4-8.2 [facility] Comment on above: Performed By: #### L 501.9985, L501.9520, L100.0100, L500.4050, L506.1001, L500.4100 #### [facility] [address] [place], [address] Urea nitrogen [Mass/Vol] 18 mg/dL Normal 7-18 [facility] Comment on above: Performed By: #### L 501.9985, L501.9520, L100.0100, L500.4050, L506.1001, L500.4100 #### [facility] [address] [place], [address] Prothrombin Time w/INRon INR Coag (PPP) [Relative time] 1.0 {INR} Normal [facility] Comment on above: Performed By: #### L 501.9985, L501.9520, L100.0100, L500.4050, L506.1001, L500.4100 #### [facility] [address] [place], [address] PT Coag (PPP) [Time] 13.0 s Normal 11.7-14.9 [facility] Comment on above: Performed By: #### L 501.9985, L501.9520, L100.0100, L500.4050, L506.1001, L500.4100 #### [facility] [address] [place], [address] 12 Lead EKG performed by [facility] on 09-05-2024 12 Lead EKG performed by [facility] [address] [place] [address] 12 Lead EKG performed by [facility] 09/05/24811 MR#: [id number] Acct: [id number] Name: GAEL JIMENEZ JrFide Rep #: [id number] : 1955 69 From: Oskar Leon MD Attending Dr: Dr. 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 ABNORMAL Done in the seated positionElectronically signed on 09/05/2024 at 10:[address] Oskar Leon [employer] Version 8610 09/05/24 1015 Date Oskar Leon MD CC: Dr. Marco Kilgore MD Date Dictated: 09/05/24811 Date Transcribed: 09/05/24811 Shirt Marker: Signed Normal [facility] Cardiology Visit Reporton Cardiology Visit Report [facility] [address] [place] [address] OFFICE VISIT Date of Service: 09/05/24 MR#: [id number] Acct: [id number] Name: GAEL JIMENEZ Rep #: [id number] : 1955 Provider: Dr. Oskar argueta MD Age/Sex: 69/M Location: [facility] Status: Signed with Addenda ADDENDUM by Dr. Oskar Leon MD on 09/05/24 at 0949 HPI History of Present Illness Details: ECG in the office today shows sinus rhythm with occasional PACs and a heart rate of 66 with poor R wave progression. Patient has known normal LV function on echocardiogram done August 13, 2024. Assessment and Plan Assessment and Plan (1) CVA (cerebral vascular accident): Status: Acute Qualifiers: CVA mechanism: unspecified Qualified Code(s): I63.9 - Cerebral infarction, unspecified (2) Essential hypertension: Status: Acute (3) Hyperlipidemia: Status: Acute Qualifiers: Hyperlipidemia type: pure hypercholesterolemia Qualified Code(s): E78.00 - Pure hypercholesterolemia, unspecified (4) STEVE (obstructive sleep apnea): Status: Acute Orders: Orders 12 Lead EKG performed by [facility] Today I63.9 - Cerebral infarction, unspecified 30 Day Event Recorder Preventi Today I49.8 - Other specified cardiac arrhythmias Plan Details Follow Up: 6 Months (With Dr. Leon and as needed) 09/05/24 0949 Date Oskar Leon MD cc: Dr. Marco Kilgore MD * Signed HPI HPI History of Present Illness Details: Patient comes in today with his for new patient visit. He is a very pleasant 69-year-old white male singh. The patient was being evaluated for hearing deficits when it was noticed that he had significant unilateral hearing loss in January 2024.. This led to a CT scan and MRI which diagnosed him with cerebellar infarcts. The patient's CTA did not show any significant large vessel or intracranial atherosclerotic disease. An echocardiogram showed normal LV function with normal atrial sizes no significant valvular disease and no PFO by bubble study. The patient has never had a history of atrial fibrillation. However, he does have obstructive sleep apnea treated with CPAP and he has been told in the past he had significant bradycardia that was evaluated and not found to need treatment remotely. The patient does report he occasionally feels palpitations. 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 He has noted dizzy spells for several years but the hearing loss was more recent within the past year. It did show on his MRI there was more than 1 foci of infarct. This had the appearance of an embolic event. The patient also had a history of a DVT in December 2022. And he is due to have knee surgery in the near future. 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 He does note that his dizziness seems to have lessened over the last few months. The patient feels that his exercise tolerance is limited only by his orthopedic issues with his knees. 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 Accompanied by: Is patient in pain?: No Allergies No Known Allergies Allergy (Verified 09/05/24 08:56) Medications ???Medication ???Instructions ???Recorded ???Confirmed ???Type omeprazole 40 mg capsule,delayed 40 mg PO DAILY 12/02/22 09/05/24 History release amlodipine 5 mg tablet 5 mg PO QDAY 08/14/24 09/05/24 History aspirin 81 mg tablet,delayed 81 mg PO QDAY 08/14/24 09/05/24 History release (Adult Low Dose Aspirin) atorvastatin 40 mg tablet 40 mg PO QHS 08/14/24 09/05/24 History cholecalciferol (vitamin D3) 25 25 mcg PO QDAY 08/14/24 09/05/24 History mcg (1,000 unit) tablet levothyroxine 200 mcg tablet 200 mcg PO QDAY 08/14/24 09/05/24 History (Synthroid) tamsulosin 0.4 mg capsule (Flomax) 0.8 mg PO DAILY 08/14/24 09/05/24 History Ejection fraction %: 65 Have you fallen in the past year?: Yes [facility] Medical History DVT (deep venous thrombosis) Ischemic stroke Essential hypertension Hyperlipidemia Hypothyroidism CPAP (continuous positive airway pressure) dependence Vitamin D deficiency BPH (benign prostatic hyperplasia) Osteoarthritis GERD (gastroesophageal reflux disease) Lower back pain HNP (herniated nucleus pulposus), lumbar Wears glasses (more content not included)... Normal [facility] Orthopedic Visit Reporton Orthopedic Visit Report [facility] [address] [place] [address] OFFICE VISIT Date of Service: 08/17/24 MR#: [id number] Acct: [id number] Name: GAEL JIMENEZ Jr. Rep #: [id number] : 1955 Provider: Dr. Gabriel tian DO Age/Sex: 69/M Location: [facility] Status: Signed Intake Vital Signs 01/11/23 14:02 08/01/24 15:05 08/17/24 08:02 Height 5 ft 5 in 5 ft 5 in 5 ft 6 in Weight: 227 lb BMI 36.6 Intake Visit Reasons: BILAT KNEES Chief Complaint: bilateral knee pain Is patient in pain?: Yes (bilateral knees) Pain scale (1-10): 9 Allergies No Known Allergies Allergy (Verified 08/17/24 08:04) Medications ???Medication ???Instructions ???Recorded ???Confirmed ???Type omeprazole 40 mg capsule,delayed 40 mg PO DAILY 12/02/22 08/14/24 History release amlodipine 5 mg tablet 5 mg PO QDAY 08/14/24 08/14/24 History aspirin 81 mg tablet,delayed 81 mg PO QDAY 08/14/24 08/14/24 History release (Adult Low Dose Aspirin) atorvastatin 40 mg tablet 40 mg PO QHS 08/14/24 08/14/24 History cholecalciferol (vitamin D3) 25 25 mcg PO QDAY 08/14/24 08/14/24 History mcg (1,000 unit) tablet levothyroxine 200 mcg tablet 200 mcg PO QDAY 08/14/24 08/14/24 History (Synthroid) tamsulosin 0.4 mg capsule (Flomax) 0.8 mg PO DAILY 08/14/24 08/14/24 History [facility] you [facility] in the past year?: [facility] DVT (deep venous thrombosis) Ischemic stroke Essential hypertension Hyperlipidemia Hypothyroidism CPAP (continuous positive airway pressure) dependence Vitamin D deficiency BPH (benign prostatic hyperplasia) Osteoarthritis GERD (gastroesophageal reflux disease) Lower back pain HNP (herniated nucleus pulposus), lumbar Wears glasses Cancer Depression Anxiety Arthritis Back pain Dietary restriction Sleep apnea Shortness of breath on exertion Leg cramps History of pain when walking History of stress test History of irregular heartbeat Melanoma Surgical History History of colonoscopy S/P laminectomy Hx of ventral hernia repair Hx of knee surgery Family History Father CVA (cerebral vascular accident) Other Arthritis Diabetes Social History Smoking Status: Never smoker alcohol intake: never substance use type: does not use HPI BILAT KNEES Chief Complaint: bilateral knee pain Details: This documentation accurately reflects the service provided and the decisions made by me, Dr. Gabriel Cornelius, DO 08/17/24 08. Part of today???s visit was documented by María LOPEZ, acting as scribe. GAEL JIMENEZ is a 69 year old M here today for bilateral knee pain. Pt. advises he has experienced bilateral knee pain for 10 years and is progressively gotten worse. He states he has a constant dull ache and when he states the ache worsens with weight bearing, walking and standing. He states the left knee is worse. He states he has been experiencing popping, clicking and weakness. He states they have not given out but he is concerned they will. He was referred by Dr. Kilgore . He states he had an injection in his left knee a couple years ago in [facility]. He states he had right knee surgery about 10 years ago at [facility] but denies previous surgery on the left knee. He has been treating pain with Advil. He denies any PT. He states that Dr. Ramirez tried an injection about 2 -3 years ago but is unsure what kind of injection it was. He states that he can walk about 300ft before the left knee pain gets severe and radiates up into the hip. His left knee is starting to affect his activities. He did have a brain MRI that did show he had 2 strokes but is unsure when they occurred. He has had history of back surgery and does have lateral sided thigh pain when the knee pain gets bad. Denies radicular symptoms Ortho Exam General General: Yes no acute distress Neurologic: Yes alert and Yes oriented x3 Psychologic: Yes reasonable and appropriate Right Knee Skin/Wound: No erythema, No ecchymosis and No swelling Knee ROM: Yes ROM-Extension -20 to 0 (-8) and Yes ROM-Flexion 0-140 (108) Examination: Yes Med jt line tenderness and No Lat jt line tenderness Stability: NML: Anterior Drawer, NML: Posterior Drawer, NML: Valgus 0, NML: Valgus 30, NML: Varus 0 and NML: Varus 30 Patella Translation: 1 Patella Grind: No KNEE: 2mm medial gapping with valgus stress Left Knee Skin/Wound: No ecchymosis, No erythema and No swelling Knee ROM: Yes ROM-Extension -20 to 0 (-15) and Yes ROM-Flexion 0-140 (105) Examination: Yes med jt line tenderness, Yes Lat jt line tenderness, Yes Pain with flexion and No Mc (more content not included)... Normal [facility] Echo Completeon 08-13-2024 Echo Complete [facility] Cardi[facility] Services [address] [place] [address] Echo Complete 08/13/24 1105 MR#: [id number] Acct: [id number] Name: GAEL JIMENEZ Darius Martin. Rep #: [id number] : 1955 69 From: Sameer Venegas MD Attending Dr: Dr. Marco Kilgore MD Status: [facility] Ordering Dr: Marco Kilgore MD Date: 08/13/24 Location: [facility] Sex: M C Admitted: Reason For Study: Ischemic Stroke Procedure This was a 2D Doppler, Color Flow transthoracic echocardiogram. Exam performed in department. Left Ventricle Normal size and thickness. The left ventricular ejection fraction is 65 %. Normal diastology for age. Right Ventricle Normal right ventricle. Atria The left and right atria are normal. Bubble contrast study is negative for PFO/ASD. Mitral Valve Focal calcification of the anterior mitral valve leaflet. Trivial mitral valve insufficiency. Tricuspid Valve Trivial tricuspid valve insufficiency. Unable to estimate RV systolic pressure due to insufficient tricuspid regurgitant envelope. Aortic Valve Trisinus/trileaflet aortic valve. Pulmonic Valve The pulmonic valve is not well visualized. Great Vessels Normal sized aortic root. Pericardium/Pleural No pericardial effusion. Medication 22 gauge I.V. with prn adaptor inserted into right arm. Performed a rapid injection of agitated mix of 9 cc saline and 1cc air to assess for atrial septal defect. MMode/2D Measurements Calculations LVIDd: 5.1 cm IVSd: 1.4 cm LVOT diam: 2.2 cm LVIDs: 3.1 cm LVPWd: 0.88 cm RVDd: 3.2 cm FS: 39.8 % LVOT area: 3.7 cm2 ___ Ao root diam: 3.9 cm asc Aorta Diam: 3.5 cm LAV(MOD-bp): 67.4 ml LAV(MOD-sp2): 71.1 ml LAV(MOD-sp4): 61.1 ml ___ LVAd ap4: 34.4 cm2 SV(MOD-sp4): 64.9 ml SV(sp4-el): 72.0 ml LVLd ap4: 7.9 cm EDV(MOD-sp4): 120.5 ml EDV(sp4-el): 127.9 ml LVAs ap4: 22.0 cm2 LVLs ap4: 7.3 cm ESV(MOD-sp4): 55.6 ml ESV(sp4-el): 55.9 ml EF(MOD-sp4): 53.9 % EF(sp4-el): 56.3 % ___ LA A4 area: 20.6 cm2 RA A4 area: 18.9 cm2 TAPSE: 2.5 cm Time Measurements MV dec time: 0.22 sec Doppler Measurements Calculations MV E max jeanne: 53.4 cm/sec Lat Peak E' Jeanne: 8.5 cm/sec Med Peak E' Jeanne: 7.3 cm/sec MV A max jeanne: 53.4 cm/sec E/E' lat: 6.2 E/E' med: 7.3 MV E/A: 1.0 ___ MV V2 max: 72.7 cm/sec MV P1/2t max jeanne: 59.4 cm/sec Ao V2 max: 98.1 cm/sec MV max P.1 mmHg MV P1/2t: 83.5 msec Ao max P.8 mmHg MV V2 mean: 38.1 cm/sec Ao V2 mean: 75.8 cm/sec MV mean P.70 mmHg MV dec slope: 208.6 cm/sec2 Ao mean P.5 mmHg MV V2 VTI: 25.6 cm MVA(P1/2t): 2.6 cm2 Ao V2 VTI: 21.9 cm AV (velocity ratio): 0.93 MVA(VTI): 2.9 cm2 ULISES(I,D): 3.4 cm2 ULISES(V,D): 3.1 cm2 ___ LV V1 max: 83.1 cm/sec SV(LVOT): 74.1 ml PA V2 max: 83.2 cm/sec LV V1 max P.8 mmHg PA max PG (full): 1.5 mmHg LV V1 mean P.6 mmHg LV V1 mean: 60.2 cm/sec LV V1 VTI: 20.3 cm ___ TR max jeanne: 246.3 cm/sec TR max P.3 mmHg ECHO/Echo Complete Interpretation Summary The left ventricular ejection fraction is 65 %. Bubble contrast study is negative for PFO/ASD. Focal calcification of the anterior mitral valve leaflet. Ordering Physician: Marco Kilgore Chi Referring Physician: Marco Kilgore Chi Performed By: Jesus Alberto Yanes and Student 08/13/24 1450 Date Sameer Venegas MD CC: Dr. Marco Kilgore MD Date Dictated: 08/13/24 1105 Date Transcribed: 08/13/24 145 Shirt Marker: Signed Isabella [facility] Carotid Duplex Ultrasoundon 08-02-2024 Carotid Duplex Ultrasound [facility] Cardiovascular Services [address] [place], [place] [address] [address] Carotid Duplex Ultrasound 08/02/24 1247 MR#: [id number] Acct: [id number] Name: GAEL JIMENEZ Jr. Rep #: [id number] : 1955 69 From: Keith Andrea MD Attending Dr: Dr. Marco Kilgore MD Status: REG CLI Ordering Dr: Marco Kilgore MD Date: 08/02/24 Location: [facility] Sex: M C Admitted: Reason For Study: ISCHEMIC STROKE Rt. Velocities/BP Lt. Velocities/BP Prox CCA 78.7/16.0 cm/sec. Prox CCA 82.0/23.7 cm/sec. Mid CCA 69.9/20.4 cm/sec. Mid CCA 82.0/23.7 cm/sec. Dist CCA 57.8/18.2 cm/sec. Dist CCA 74.3/18.2 cm/sec. Prox ICA 33.1/13.0 cm/sec. Prox ICA 51.1/12.7 cm/sec. Mid ICA 68.8/28.1 cm/sec. Mid ICA 56.3/22.3 cm/sec. Dist ICA 41.0/17.9 cm/sec. Dist ICA 69.4/24.1 cm/sec. Rt. ICA/CCA = 68.8/69.9=1.0. Lt. ICA/CCA = 69.4/82.0=0.8. Prox ECA 63.3/12.7 cm/sec. Prox ECA 64.4/16.0 cm/sec. Rt. Vert. 31.7/9.0 cm/sec. Lt. Vert. 44.1/17.1 cm/sec. Right Extracranial There is homogeneous, smooth atherosclerotic plaque noted in the right common carotid artery. There is homogeneous, smooth atherosclerotic plaque noted in the right internal carotid artery. There is heterogeneous, irregular atherosclerotic plaque noted in the right external carotid artery. The right external carotid artery is not well visualized. Antegrade flow is noted in the right vertebral artery. Left Extracranial There is intimal thickening but no significant atherosclerotic plaque noted in the left common carotid artery. There is homogeneous, smooth atherosclerotic plaque noted in the left internal carotid artery. There is intimal thickening but no significant atherosclerotic plaque noted in the left external carotid artery. Antegrade flow is noted in the left vertebral artery. Procedure Carotid Duplex 69618. This is a Carotid Duplex examination using B-mode, color flow and specral Doppler. Exam performed in department. VL/Carotid Duplex Ultrasound Interpretation Summary Mild (<50%) stenosis right extracranial internal carotid. Mild (<50%) stenosis left extracranial internal carotid. Patent and antegrade vertebrals bilaterally. Ordering Physician: Marco Kilgore Chi Referring Physician: Marco Kilgore Chi Performed By: Kalli Nguyen, ABHINAV, RVT 08/03/24 1106 Date Keith Andrea MD CC: Dr. Marco Kilgore MD Date Dictated: 08/02/24 1247 Date Transcribed: 08/03/24 1106 Shirt Marker: Signed Normal [facility] CBC W/Diff, Automatedon 06-30 Absolute Lymph 1.43 X10 3/uL Normal 0.83-4.51 [facility] Comment on above: Performed By: #### L 100.0500 #### [facility] Laboratory [address] [place], [address] Absolute Neut 3.3 X10 3/uL Normal 2.0-7.7 [facility] Comment on above: Performed By: #### L 100.0500 #### [facility] [address] [place], [address] Basophils/100 WBC (Bld) 0.6 % Normal 0-1 [facility] Comment on above: Performed By: #### L 100.0500 #### [facility] [address] [place], [address] Eosinophils/100 WBC (Bld) 4.3 % Normal 0-5 [facility] Comment on above: Performed By: #### L 100.0500 #### [facility] [address] [place], [address] Erythrocyte distribution width (RBC) [Ratio] 13.2 % Normal 11.6-14.6 [facility] Comment on above: Performed By: #### L 100.0500 #### [facility] [address] [place], [address] Hematocrit (Bld) [Volume fraction] 48.7 % Normal 40-54 [facility] Comment on above: Performed By: #### L 100.0500 #### [facility] [address] [place] [place], [address] Hemoglobin (Bld) [Mass/Vol] 16.4 g/dL Normal 13.0-16.5 [facility] Comment on above: Performed By: #### L 100.0500 #### [facility] [address] [place], [address] IG% 0.200 Normal 0.0-0.9 [facility] Comment on above: Result Comment: IG% - Immature Granulocytes (promyelocytes, myelocytes and metamyelocytes) > 1% indicates that a LEFT SHIFT is Present. Performed By: #### L 100.0500 #### [facility] [address] [place], [address] Lymphocytes/100 WBC (Bld) 26.5 % Normal 19-41 [facility] Comment on above: Performed By: #### L 100.0500 #### [facility] [address] [place], [address] MCH (RBC) [Entitic mass] 30.6 pg Normal 27.0-32.0 [facility] Comment on above: Performed By: #### L 100.0500 #### [facility] [address] [place], [address] MCHC (RBC) [Mass/Vol] 33.7 g/dL Normal 32-36 [facility] Comment on above: Performed By: #### L 100.0500 #### [facility] [address] [place], [address] MCV (RBC) [Entitic vol] 90.9 fL Normal 80-94 [facility] Comment on above: Performed By: #### L 100.0500 #### [facility] [address] [place], [address] Monocytes/100 WBC (Bld) 8.0 % Normal 0-10 [facility] Comment on above: Performed By: #### L 100.0500 #### [facility] [address] [place], [address] Neutrophils/100 WBC (Bld) 60.4 % Normal 47-70 [facility] Comment on above: Performed By: #### L 100.0500 #### [facility] [address] [place], [address] Nucleated RBC (Bld) [#/Vol] 0 10*3/uL Normal 0-5 [facility] Comment on above: Performed By: #### L 100.0500 #### [facility] [address] [place], [address] Platelet mean volume (Bld) [Entitic vol] 8.9 fL Normal 6.2-12.0 [facility] Comment on above: Performed By: #### L 100.0500 #### [facility] [address] [place], [address] Platelets (Bld) [#/Vol] 253 10*3/uL Normal 150-450 [facility] Comment on above: Performed By: #### L 100.0500 #### [facility] [address] [place], [address] RBC (Bld) [#/Vol] 5.36 10*6/uL Normal 4.6-6.2 [facility] Comment on above: Performed By: #### L 100.0500 #### [facility] [address] [place], [address] RDW SD 44.1 fl High 35.1-43.9 [facility] Comment on above: Performed By: #### L 100.0500 #### [facility] [address] [place], [address] WBC (Bld) [#/Vol] 5.4 10*3/uL Normal 4.4-11.0 [facility] Comment on above: Performed By: #### L 100.0500 #### [facility] [address] [place], [address] CTA Head AND Neck W/ Contras ton 07-27-2024 CTA Head AND Neck W/ Contrast [facility] Imaging Services [address] [place] [address] CTA Head AND Neck W/ Contrast MR#: [id number] Acct: [id number] Name: GAEL JIMENEZ Jr. Rep #: [id number] : 1955 M 69 From: Antonio childs MD PCP: Dr. Marco Kilgore MD Status: REG CLI Study: CTA Head AND Neck W/ Contrast Date of Exam: Exam# [id number] Ordering Dr: Marco Kilgore MD [id number] STUDY: CTA HEAD AND NECK WITH CONTRAST REASON FOR EXAM: Male, 69 years old. CVA RADIATION DOSAGE (If Supplied By Facility): CTDIvol = ( 31.25 ) mGy, DLP = ( 1623.23 ) mGycm TECHNIQUE: CT angiography was performed with a multi-detector CT scanner. Data acquisition was obtained from the skull base through the vertex following intravenous administration of IV 100mL Isovue-370. MIP images were reconstructed from the axial data set. Post-processing of the angiographic images was performed, with multiplanar reformation and 3D reconstruction. Individualized dose optimization techniques were used for this CT. COMPARISON: No relevant priors. FINDINGS: Normal bilateral petrous carotid arteries. Normal right cavernous carotid artery with a normal supraclinoid bifurcation. Normal left cavernous carotid artery with a normal supraclinoid bifurcation. Normal right A1 segments of the anterior cerebral artery. Normal left A1 segments of the anterior cerebral artery. Normal intact anterior communicating artery (ACOM). Normal bilateral A2 segments of the anterior cerebral arteries. Normal right M1 and M2 segments of the middle cerebral arteries, with a normal M1 bifurcation. Normal left M1 and M2 segments of the middle cerebral arteries, with a normal M1 bifurcation. Normal right posterior communicating artery (PCOM). Normal left posterior communicating artery (PCOM). Normal bilateral vertebral arteries. Normal basilar artery with a normal basilar bifurcation. The visualized bilateral superior cerebellar (SCA) arteries are normal. Normal bilateral P1, P2 and visualized P3 segments of the posterior cerebral arteries. There is no demonstrated aneurysm of the t[place] of [place]. There is no demonstrated abnormality of the visualized brain. AORTIC ARCH: There is a mild degree of atherosclerotic calcific plaque formation of the aortic arch and great vessels arising from the aortic arch, without a hemodynamically significant stenosis. There is a normal origin of the brachiocephalic, left common carotid, and left subclavian arteries. RIGHT CAROTID ARTERIES: Normal right common carotid artery (CCA). Normal right common carotid bulb. Normal origin of the right internal carotid (ICA) artery without a hemodynamically significant stenosis. Normal visualized cervical portion of the right internal carotid artery. Normal origin of the right external carotid artery (ECA). LEFT CAROTID ARTERIES: Normal left common carotid artery (CCA). Normal left common carotid bulb. Normal origin of the left internal carotid (ICA) artery without a hemodynamically significant stenosis. Normal visualized cervical portion of the left internal carotid artery. Normal origin of the left external carotid artery (ECA). VERTEBRAL ARTERIES: There is enhancement within the bilateral vertebral arteries with a small left vertebral artery, and a dominant right vertebral artery. CT/CTA Head AND Neck W/ Contrast IMPRESSION: Normal CTA Head and neck with contrast. Electronically Signed: Antonio Landrum MD at 11:09 EDT , CC: Dr. Marco Kilgore MD Shirt Marker: Signed Normal [facility] Comprehensive Metabolic Prof mewest 07-27-2024 Albumin [Mass/Vol] 3.5 g/dL Normal 3.2-5.0 [facility] Comment on above: Performed By: #### L 100.0500 #### [facility] [address] [place], [address] Albumin/Globulin [Mass ratio] 0.9 {ratio} Normal 0.9-2.4 [facility] Comment on above: Performed By: #### L 100.0500 #### [facility] [address] [place], [address] ALK P 106 U/L Normal 45-117 [facility] Comment on above: Performed By: #### L 100.0500 #### [facility] [address] [place], [address] ALT [Catalytic activity/Vol] 28 U/L Normal 16-61 [facility] Comment on above: Performed By: #### L 100.0500 #### [facility] [address] [place], [address] AST [Catalytic activity/Vol] 20 U/L Normal 15-37 [facility] Comment on above: Performed By: #### L 100.0500 #### [facility] [address] [place], [address] Bilirubin [Mass/Vol] 0.70 mg/dL Normal 0.20-1.00 [facility] Comment on above: Result Comment: For patients on eltrombopag therapy, use of Dimension [place] TBIL is not recommended. Performed By: #### L 100.0500 #### [facility] [address] [place], [address] BUN/CRE 13.5 RATIO Normal 10-20 [facility] Comment on above: Performed By: #### L 100.0500 #### [facility] [address] [place], [address] CA,Total 9.1 mg/dL Normal 8.5-10.1 [facility] Comment on above: Performed By: #### L 100.0500 #### [facility] [address] [place], [address] Chloride [Moles/Vol] 111 mmol/L High 98-107 [facility] Comment on above: Performed By: #### L 100.0500 #### [facility] [address] [place], [address] CO2 [Moles/Vol] 27.0 mmol/L Normal 21.0-32.0 [facility] Comment on above: Performed By: #### L 100.0500 #### [facility] [address] [place], [address] Creatinine [Mass/Vol] 1.04 mg/dL Normal 0.70-1.30 [facility] Comment on above: Result Comment: The validity of the calculated GFR GFRAA in patients over 70 years has not been determined. Clinical correlation is essential. Performed By: #### L 100.0500 #### [facility] [address] [place], [address] EST GFR - AA 91 mL/min Normal >60 [facility] Comment on above: Result Comment: Afri can Cymro GFR Calc Performed By: #### L 100.0500 #### [facility] [address] [place], [address] GAP 2 Low 5-15 [facility] Comment on above: Performed By: #### L 100.0500 #### [facility] [address] [place], [address] GFR/1.73 sq M.predicted among non-blacks MDRD (S/P/Bld) [Vol rate/Area] 75 mL/min/{1.73_m2} Normal >60 [facility] Comment on above: Result Comment: Non- GFR Calc Performed By: #### L 100.0500 #### [facility] [address] [place], [address] Globulin (S) [Mass/Vol] 3.7 g/dL Normal 2.2-4.2 [facility] Comment on above: Performed By: #### L 100.0500 #### [facility] [address] [place], [address] Glucose [Mass/Vol] 178 mg/dL High 74-106 [facility] Comment on above: Result Comment: Fast ing Glucose result greater than or equal to 126 mg/dL suggests DIABETES MELLITUS per A.D.A. criteria. Performed By: #### L 100.0500 #### [facility] [address] [place], [address] Potassium [Moles/Vol] 3.9 mmol/L Normal 3.5-5.1 [facility] Comment on above: Performed By: #### L 100.0500 #### [facility] [address] [place], [address] Sodium [Moles/Vol] 140 mmol/L Normal 136-145 [facility] Comment on above: Performed By: #### L 100.0500 #### [facility] [address] [place], [address] T PROT 7.2 g/dL Normal 6.4-8.2 [facility] Comment on above: Performed By: #### L 100.0500 #### [facility] [address] [place], [place], [address] Urea nitrogen [Mass/Vol] 14 mg/dL Normal 7-18 [facility] Comment on above: Performed By: #### L 100.0500 #### [facility] [address] [place], [address] Hemoglobin A1con 07-27-2024 HbA1c (Bld) [Mass fraction] 6.1 % High 3.8-5.6 [facility] Comment on above: Order Comment: ADD O N---BLOOD IN LAB Result Comment: Norm al < 5.7 % Prediabetic 5.7 - 6.4 % Diabetic >or= 6.5 % Please note range changes. Performed By: #### L 100.0500 #### [facility] [address] [place], [place], [address] Thyroid Stim Hormone (TSH)on 07-27-2024 TSH 2.770 uIU/mL Normal 0.358-3.740 [facility] Comment on above: Performed By: #### L 100.0500 #### [facility] [address] [place], [place], [id number] Vitamin D,25 Hydroxyon 07-27 Vitamin D 25-OH 28.3 ng/mL Normal [facility] Comment on above: Result Comment: Ella min D 25(OH) Status Range Deficiency <20 ng/mL (50nmol/L) Insufficiency 20 - 30 ng/mL (50 - 75 nmol/L) Sufficiency 30 - 100 ng/mL (75 - 250 nmol/L) Toxicity >100 ng/mL (>250 nmol/L) Performed By: #### L 100.0500 #### [facility] [address] [place], [place], [phone] Basophil percentageOrdered B y: Artemio Myers on 03-16-2024 Creatinine [Mass/Vol] 1.4 mg/dL 0.70-1.30 [facility] - Chemistry and C hemistry - challengeOrdered By: Artemio Myers on 03-16-2024 GFR/1.73 sq M.predicted among non-blacks MDRD (S/P/Bld) [Vol rate/Area] 52.0000 mL/min/{1.73_m2} >60 [facility] Absolute lymphocyte countOrd ered By: Marco Kilgore on 01-26-2024 Lymphocytes Auto (Unsp spec) [#/Vol] 1.33 10*3/uL 0.83-4.51 [facility] Automated lymphocyte count a s percentage of total leukocytesOrdered By: Marco Jame on 01-26-2024 Lymphocytes/100 WBC Auto (Unsp spec) 23.0 % 19-41 [facility] Basophil percentageOrdered B y: Marco Gordonok on 01-26-2024 Basophils/100 WBC (Bld) 0.5 % 0-1 [facility] Bilirubin [Mass/Vol] 0.50 mg/dL 0.20-1.00 [facility] Comment on above: For patients on eltr ombopag therapy, use of Dimension [place] TBIL is not recommended. Chloride [Moles/Vol] 113 mmol/L 98-107 [facility] Cholesterol [Mass/Vol] 151 mg/dL <200 [facility] Comment on above: <200 mg/dL Desirable 200-240 mg/dL Borderline >240 mg/dL High Risk Eosinophils/100 WBC (Bld) 3.8 % 0-5 [facility] Glucose [Mass/Vol] 102 mg/dL 74-106 [facility] Comment on above: Fasting Glucose resu lt from 100 to 125 mg/dL suggests IMPAIRED HOMEOSTASIS per A.D.A. criteria. Hemoglobin (Bld) [Mass/Vol] 16.2 g/dL 13.0-16.5 [facility] Monocytes/100 WBC (Bld) 13.3 % 0-10 [facility] Neutrophils (Bld) [#/Vol] 3.4 10*3/uL 2.0-7.7 [facility] Neutrophils/100 WBC (Bld) 59.2 % 47-70 [facility] Potassium [Moles/Vol] 3.9 mmol/L 3.5-5.1 [facility] Protein [Mass/Vol] 7.3 g/dL 6.4-8.2 [facility] Sodium [Moles/Vol] 141 mmol/L 136-145 [facility] Triglyceride [Mass/Vol] 103 mg/dL <199 [facility] Comment on above: The drugs N-Acetylcy steine and Metamizole may falsely depress this assay.Serum Triglycerides Reference Interval Normal <150 mg/dL Borderline high 150 - 199 mg/dL High 200 - 499 mg/dL Very High > or = 500 mg/dL WBC (Bld) [#/Vol] 5.8 10*3/uL 4.4-11.0 [facility] Determination of erythrocyte mean corpuscular volume (MCV)Ordered By: Marco Kilgore on 01-26-2024 MCV (RBC) [Entitic vol] 91.0 fL 80-94 [facility] Erythrocyte distribution wid th ratioOrdered By: Marco Kilgore 01-26-2024 Erythrocyte distribution width (RBC) [Ratio] 13.3 % 11.6-14.6 [facility] Erythrocyte distribution wid th standard deviationOrdered By: Marco Kilgore 01-26-2024 Erythrocyte distribution width (RBC) [Entitic vol] 45.1 fL 35.1-43.9 [facility] Hematocrit Auto (Bld) [Volum e fraction]Ordered By: [facility] Jame 01-26-2024 Hematocrit (Bld) [Volume fraction] 48.7 % 40-54 [facility] Immature granulocytes/100 WB C Auto (Bld)Ordered By: Marco Kilgore 01-26-2024 Immature granulocytes/100 WBC (Bld) 0.200 % 0.0-0.9 [facility] Comment on above: IG% - Immature Granu locytes (promyelocytes, myelocytes and metamyelocytes) > 1% indicates that a LEFT SHIFT is Present. Laboratory - Chemistry and C hemistry - challengeOrdered By: Marco Kilgore on 01-26-2024 Albumin/Globulin [Mass ratio] 1.0 {ratio} 0.9-2.4 [facility] ALP [Catalytic activity/Vol] 102 U/L 45-117 [facility] ALT [Catalytic activity/Vol] 26 U/L 16-61 [facility] Cholesterol in HDL [Mass/Vol] 38 mg/dL >40 [facility] Comment on above: The drugs N-Acetylcy steine and Metamizole may falsely depress this assay. Reference Range HDL <40 mg/dL Low HDL Cholesterol HDL >or= 60 mg/dL High HDL Cholesterol Cholesterol in LDL [Mass/Vol] 92 mg/dL 0-130 [facility] CO2 [Moles/Vol] 25.0 mmol/L 21.0-32.0 [facility] Globulin (S) [Mass/Vol] 3.7 g/dL 2.2-4.2 [facility] Urea nitrogen/Creatinine [Mass ratio] 20.3 mg/mg 10-20 [facility] - Hematology and Cell countsOrdered By: Marco Kilgore on 01-26-2024 MCH (RBC) [Entitic mass] 30.3 pg 27.0-32.0 [facility] MCHC (RBC) [Mass/Vol] 33.3 g/dL 32-36 [facility] Nucleated RBC/100 WBC (Bld) [Ratio] 0 % 0-5 [facility] Platelet mean volume (Bld) [Entitic vol] 9.0 fL 6.2-12.0 [facility] Platelets (Bld) [#/Vol] 260 10*3/uL 150-450 [facility] No Panel InformationOrdered By: Marco Kilgore on 01-26-2024 Estimated GFR (MDRD) Amer 109 mL/min >60 [facility] Comment on above: GFR Calc Estimated GFR (MDRD) Non-Af Amer 90 mL/min >60 [facility] Comment on above: Non- GFR Calc Hepatitis C Antibody Non-Reactive Nonreactive W [facility] Comment on above: Non Reactive: < 0.8 Equivocal: >/= 0.8 to < 1.0 Reactive: >/= 1.0The CDC requires that a reactive/equivocal HCV antibody result be sent out for confirmation. HCV Quant by PCR testing. Prostate Specific Antigen Screen 3.66 ng/mL 0.00-4.00 [facility] Comment on above: This test was perfor med using the TPSA assay method for the[employer] chemistry system. Values obtained with differentassay methods cannot be used interchangably.When changing PSA assays in the course of monitoring apatient, additional sequential testing should be carriedout to confirm baseline values. VLDL Cholesterol 21 mg/dL 5-40 [facility] RBC Auto (Bld) [#/Vol]Ordere d By: Marco Kilgore on 01-26-2024 RBC (Bld) [#/Vol] 5.35 10*6/uL 4.6-6.2 [facility] Serum or plasma calcium nigel urement (mass/volume)Ordered By: Marco Kilgore on 01-26-2024 Calcium [Mass/Vol] 8.8 mg/dL 8.5-10.1 [facility] Serum or plasma creatinine m easurement (mass/volume)Ordered By: Marco Kilgore on 01-26-2024 Creatinine [Mass/Vol] 0.89 mg/dL 0.70-1.30 [facility] Comment on above: The validity of the calculated GFR & GFRAA in patients over 70 years has not been determined. Clinical correlation is essential. Serum or plasma thyroid stim ulating hormone (TSH) measurement (units/volume)Ordered By: Marco Kilgore on 01-26-2024 TSH Qn 2.44 uIU/mL 0.358-3.74 [facility] Serum or plasma urea nitroge n measurement (mass/volume)Ordered By: Marco Kilgore on 01-26-2024 Urea nitrogen [Mass/Vol] 18 mg/dL 7-18 [facility] Thin prep Papanicolaou smear with manual screeningOrdered By: Marco Kilgore on 01-26-2024 Thin prep Papanicolaou smear with manual screening 3.6 g/dL 3.2-5.0 [facility] Thin prep Papanicolaou smear with manual screening 21 U/L 15-37 [facility] Thin prep Papanicolaou smear with manual screening 3 5-15 [facility] Glucose Glucometer (BldC) [M ass/Vol]Ordered By: Dr. Trejo on 01-10-2023 Glucose [Mass/Vol] 186 mg/dL 74-106 [facility] Comment on above: MANAGEMENT OF PATIEN T CARE PER NURSING PROTOCOL No Panel InformationOrdered By: Dr. Trejo on 12-31-2022 Nasal Screen MRSA/MSSA [facility] Absolute lymphocyte countOrd ered By: Dr. Terjo on 12-30-2022 Lymphocytes Auto (Unsp spec) [#/Vol] 1.44 10*3/uL 0.83-4.51 [facility] Basophil percentageOrdered B y: Dr. Trejo on 12-30-2022 Basophils/100 WBC (Bld) 0.5 % 0-1 [facility] Chloride [Moles/Vol] 106 mmol/L 98-107 [facility] Eosinophils/100 WBC (Bld) 4.2 % 0-5 [facility] Glucose [Mass/Vol] 148 mg/dL 74-106 [facility] Comment on above: Fasting Glucose resu lt greater than or equal to 126 mg/dL suggests DIABETES MELLITUS per A.D.A. criteria. Neutrophils (Bld) [#/Vol] 4.3 10*3/uL 2.0-7.7 [facility] Neutrophils/100 WBC (Bld) 64.0 % 47-70 [facility] Potassium [Moles/Vol] 4.1 mmol/L 3.5-5.1 [facility] Sodium [Moles/Vol] 140 mmol/L 136-145 [facility] WBC (Bld) [#/Vol] 6.6 10*3/uL 4.4-11.0 [facility] Blood erythrocytes count (nu mber/volume)Ordered By: Dr. Trejo on 12-30-2022 RBC (Bld) [#/Vol] 5.24 10*6/uL 4.6-6.2 [facility] Blood hemoglobin measurement (mass/volume)Ordered By: Dr. Trejo on 12-30-2022 Hemoglobin (Bld) [Mass/Vol] 15.9 g/dL 13.0-16.5 [facility] Blood lymphocytes/100 leukoc ytesOrdered By: Dr. Trejo on 12-30-2022 Lymphocytes/100 WBC (Bld) 21.7 % 19-41 [facility] Blood monocytes/100 leukocyt esOrdered By: Dr. Trejo on 12-30-2022 Monocytes/100 WBC (Bld) 9.3 % 0-10 [facility] Blood platelet mean volumeOr dered By: Dr. Trejo on 12-30-2022 Platelet mean volume (Bld) [Entitic vol] 8.8 fL 6.2-12.0 [facility] Determination of erythrocyte mean corpuscular volume (MCV)Ordered By: Dr. Trejo on 12-30-2022 MCV (RBC) [Entitic vol] 93.7 fL 80-94 [facility] HIV 1 and HIV-2 antibody ass ay with HIV-1 p24 antigen detectionOrdered By: Dr. Trejo on 12-30-2022 HIV 1+2 Ab+HIV1 p24 Ag IA Ql Non-Reactive Nonreactive [facility] Hematocrit Auto (Bld) [Volum e fraction]Ordered By: Dr. Trejo on 12-30-2022 Hematocrit (Bld) [Volume fraction] 49.1 % 40-54 [facility] - Chemistry and C hemistry - challengeOrdered By: Dr. Trejo on 12-30-2022 CO2 [Moles/Vol] 25.0 mmol/L 21.0-32.0 [facility] Magnesium [Mass/Vol] 2.3 mg/dL 1.6-2.6 [facility] Urea nitrogen/Creatinine [Mass ratio] 21.2 mg/mg 10-20 [facility] - Hematology and Cell countsOrdered By: Dr. Trejo on 12-30-2022 Erythrocyte distribution width (RBC) [Entitic vol] 45.9 fL 35.1-43.9 [facility] Erythrocyte distribution width (RBC) [Ratio] 13.2 % 11.6-14.6 [facility] Immature granulocytes/100 WBC (Bld) 0.300 % 0.0-0.9 [facility] Comment on above: IG% - Immature Granu locytes (promyelocytes, myelocytes and metamyelocytes) > 1% indicates that a LEFT SHIFT is Present. MCH (RBC) [Entitic mass] 30.3 pg 27.0-32.0 [facility] Nucleated RBC/100 WBC (Bld) [Ratio] 0 % 0-5 [facility] MCHC Auto (RBC) [Mass/Vol]Or dered By: Dr. Trejo on 12-30-2022 MCHC (RBC) [Mass/Vol] 32.4 g/dL 32-36 [facility] No Panel InformationOrdered By: Dr. Trejo on 12-30-2022 Estimated GFR (MDRD) Amer 91 mL/min >60 [facility] Comment on above: GFR Calc Estimated GFR (MDRD) Non-Af Amer 75 mL/min >60 [facility] Comment on above: Non- GFR Calc Hepatitis A Antibody Total Negative Negative [facility] Comment on above: Performed at: [facility] [address] [id number] Director: Heath Vidal PhD, Phone: [phone] Hepatitis C Antibody Non-Reactive Nonreactive W [facility] Comment on above: Non Reactive: < 0.8 Equivocal: >/= 0.8 to < 1.0 Reactive: >/= 1.0The [facility] recommends that a reactive/equivocal HCV antibody result be followed up by the HCV Nucleic Acid Amplificationtest (125018) Prostate Specific Antigen Screen 3.36 ng/mL 0.00-4.00 [facility] Comment on above: This test was perfor med using the TPSA assay method for [employer] chemistry system. Values obtained with differentassay methods cannot be used interchangably.When changing PSA assays in the course of monitoring apatient, additional sequential testing should be carriedout to confirm baseline values. Thyroid Stimulating Hormone (TSH) 2.23 uIU/mL 0.358-3.74 [facility] Platelets bldOrdered By: Dr. Trejo on 12-30-2022 Platelets (Bld) [#/Vol] 322 10*3/uL 150-450 [facility] Serum hepatitis B virus surf taco antibody IgG detectionOrdered By: Dr. Trejo on 12-30-2022 HBV surface IgG Ql (S) Non-Reactive [facility] Comment on above: Non Reactive: Incons istent with immunity less than <10 mIU/mL Reactive: Consistent with immunity greater than or equal to 10 mIU/mL Serum or plasma calcium nigel urement (mass/volume)Ordered By: Dr. Trejo on 12-30-2022 Calcium [Mass/Vol] 9.0 mg/dL 8.5-10.1 [facility] Serum or plasma creatinine m easurement (mass/volume)Ordered By: Dr. Trejo on 12-30-2022 Creatinine [Mass/Vol] 1.04 mg/dL 0.70-1.30 [facility] Comment on above: The validity of the calculated GFR & GFRAA in patients over 70 years has not been determined. Clinical correlation is essential. Serum or plasma urea nitroge n measurement (mass/volume)Ordered By: Dr. Trejo on 12-30-2022 Urea nitrogen [Mass/Vol] 22 mg/dL 7-18 [facility] Thin prep Papanicolaou smear with manual screeningOrdered By: Dr. Trejo on 12-30-2022 Thin prep Papanicolaou smear with manual screening 9 5-15 [facility] MRI SPINE LUMBAR WITHOUT CON TRASTon 11-23-2022 [...] facet joint disease as detailed above. Normal [facility] SPINE, LUMBOSACRAL MIN 4 VIE WSon 11-08-2022 SPINE, LUMBOSACRAL MIN 4 VIEWS Patient Name: GAEL JIMENEZ STUDY: SPINE, LUMBOSACRAL MIN 4 VIEWS; 11/08/2022 4:05 pm INDICATION: M25.552 M54.42. COMPARISON: None. ACCESSION NUMBER(S): [id number] ORDERING CLINICIAN: GINGER BORREGO FINDINGS: No acute compression fracture is seen. [...] Advanced multilevel degenerative changes. Electronically signed by: CASSIE DARBY MD Normal [facility] XR SPINE LUMBAR FLEX/EXT W/O BLIQUESon 03-07-2018 [...] AM Sign Date: 03/07/2018 11:32:00 AM Normal [facility] ([place]) MRI LOWER EXT JOINT W/O CONT on 01-12-2018 MRI LOWER EXT JOINT W/O CONT Final ReportAccession No: [id number] Performed: Jan 12 2018 11:07AMExamination: LEFT MRI LOWER EXT JOINT W/O CONTMRI OF THE LEFT KNEE WITHOUT CONTRAST: 01/12/2018.HISTORY: Chronic back pain and left hip pain.TECHNIQUE: Axial and coronal T1 and STIR images were obtained through thepelvis with smaller [id number] sagittal T2 and coronal T1 and STIRimages [...] mild intermediate signal of the hamstring tendon originbilaterallyconsisten t with mild tendinopathy. The iliopsoas tendons insert normallyontothe lesser trochanter. The gluteal tendon attachment onto the greatertrochanter is grossly intact bilaterally. There is no MRI evidence oftrochanteric bursitis.There is mild degenerative spurring along the anterior aspect of thesacroiliacjoints. There is no marrow edema or osseous erosion adjacent to thesacroiliacjoints. No acute abnormality is identified involving visualizedintrapelvicstruc tures.Moderately severe degenerative disc disease is present at [...] ZAYDA TRIANA M.D.Trans: lcoope : cc: Normal [facility] Vital Signs Date Time Vital Sign Value Performing Clinician Cleopatra cuenca 06-25-2025 08:38-0400 Body height 170.[address] Marco Kilgore MD Work Phone: [facility] 06-25-2025 08:38-0400 Body mass index (BMI) [Ratio] 34.7 kg/m2 Dr. Marco Kilgore MD Work Phone: [facility] 06-25-2025 08:38-0400 Body weight 100.[address] Marco Kilgore MD Work Phone: [facility] 06-25-2025 08:38-0400 Diastolic blood pressure 85 mm[Hg] Dr. Marco Kilgore MD Work Phone: [facility] 06-25-2025 08:38-0400 Heart rate 64 /min Dr. Marco Kilgore MD Work Phone: [facility] 06-25-2025 08:38-0400 Respiratory rate 18 /min Dr. Marco Kilgore MD Work Phone: [facility] 06-25-2025 08:38-0400 SaO2% (BldA) [Mass fraction] 89 % Dr. Marco Kilgore MD Work Phone: [facility] 06-25-2025 08:38-0400 Systolic blood pressure 122 mm[Hg] Dr. Marco Kilgore MD Work Phone: [facility] 01-11-2023 14:25-0500 Body temperature 98.2 [degF] Dr. Ginger Borrego Work Phone: [facility] 01-11-2023 14:25-0500 Diastolic blood pressure 73 mm[Hg] Dr. Ginger Borrego Work Phone: [facility] 01-11-2023 14:25-0500 Heart rate 77 /min Dr. Ginger Borrego Work Phone: [facility] 01-11-2023 14:25-0500 Respiratory rate 18 /min Dr. Ginger Borrego Work Phone: [facility] 01-11-2023 14:25-0500 SaO2% (BldA) [Mass fraction] 93 % Dr. Ginger Borrego Work Phone: [facility] 01-11-2023 14:25-0500 Systolic blood pressure 129 mm[Hg] Dr. Ginger Borrego Work Phone: [facility] 01-11-2023 14:02-0500 Body height 165.[address] Ginger Borrego Work Phone: [facility] 01-11-2023 14:02-0500 Body weight 102.[address] Ginger Borrego Work Phone: [facility] 01-11-2023 08:15-0500 Inhaled oxygen flow rate 2 L/min Dr. Ginger Borrego Work Phone: [facility] 01-10-2023 14:22-0500 Body mass index (BMI) [Ratio] 37.6 kg/m2 Dr. Ginger Borrego Work Phone: [facility] 12-02-2022 08:28-0500 Body mass index (BMI) [Ratio] 36 kg/m2 Dr. Ginger Borrego Work Phone: [facility] 12-02-2022 08:28-0500 Body weight 98.[address] Ginger Borrego Work Phone: [facility] Encounters Encounter Date Encounter Type Care Provider Facility Start: 07-18-2025 End: 07-18-2025 Patient encounter procedure Lewis Frost OD Work Phone: Optometry Comment on above: Vitreous floaters of both eyes (Primary Dx); Age-related nuclear cataract of both eyes; Presbyopia Start: 07-18-2025 End: 07-18-2025 ambulatory GINGER BORREGO Facility:[facility] Start: 06-25-2025 End: 06-25-2025 Patient encounter procedure Marcos GARCIA -[facility] Work Phone: Start: 06-25-2025 End: 06-25-[address] Marco Kilgore MD Work Phone: [facility] Start: 03-06-2025 ambulatory Marco Kilgore Facility:[facility] Start: 01-28-2025 End: 01-28-[address] Marco Kilgore MD Work Phone: [facility] Work Phone: Start: 01-28-2025 End: 01-28-[address] Marco Kilgore MD -Laboratory, Phy Office 3rd Flr Start: 01-28-2025 End: 01-28-2025 ambulatory Marco Kilgore Facility:[facility] Start: 12-26-2024 End: 12-26-[address] [facility] Work Phone: Start: 12-26-2024 End: 12-26-2024 ambulatory Marco Kilgore Facility:[facility] Start: 12-22-2024 Encounter for other preprocedural examination [facility] Start: 11-26-2024 End: [facility] Start: 11-23-2024 End: 11-23-2024 ambulatory [facility] Start: 11-19-2024 End: 11-19-2024 ambulatory [facility] Start: 11-15-2024 End: 11-15-2024 ambulatory [facility] Start: 11-12-2024 End: 11-12-2024 ambulatory [facility] Start: 11-12-2024 End: 11-12-[address] [facility] Work Phone: Start: 11-12-2024 End: 11-12-2024 ambulatory Marco Prem Jame Facility:[facility] Start: 11-09-2024 End: 11-09-2024 ambulatory [facility] Start: 11-07-2024 End: 11-07-2024 ambulatory [facility] Start: 11-05-2024 End: 11-05-2024 ambulatory [facility] Start: 11-02-2024 End: 11-02-2024 ambulatory [facility] Start: 10-31-2024 End: 10-31-2024 ambulatory [facility] Start: 10-29-2024 End: 10-29-2024 ambulatory [facility] Start: 10-19-2024 End: 10-19-2024 ambulatory [facility] Start: 10-17-2024 End: 10-17-2024 ambulatory [facility] Start: 10-15-2024 End: 10-15-2024 ambulatory [facility] Start: 10-15-2024 End: 10-15-[address] Gabriel Cornelius DO -[facility] Work Phone: Start: 10-15-2024 End: 10-15-2024 ambulatory Marco Chi Jame Facility:[facility] Start: 10-12-2024 End: 10-12-2024 ambulatory [facility] Start: 10-10-2024 ambulatory Keith Andrea Facility:[facility] Start: 10-09-2024 End: 10-10-2024 ambulatory [facility] Start: 10-03-2024 End: 10-04-2024 Evaluation and management of inpatient Marco Chi Jame Facility:[facility] Start: 10-03-2024 ambulatory Marco Chi Jame Facility:[facility] Start: 10-01-2024 Encounter for other preprocedural examination Marco Chi Jame [facility] Start: 09-19-2024 End: 09-19-2024 ambulatory Marco Chi Jame Facility:[facility] Start: 09-19-2024 End: 09-19-2024 ambulatory Marco Chi Jame Facility:[facility] Start: 09-11-2024 ambulatory Oskar Leon Facility :[facility] Start: 09-07-2024 End: 09-07-2024 ambulatory Marco Chi Jame Facility:[facility] Start: 09-05-2024 End: 09-05-2024 ambulatory Oskar Leon Facility:[facility] Start: 08-27-2024 End: 08-27-2024 ambulatory [facility] Start: 08-17-2024 End: 08-17-2024 ambulatory Marco Chi Jame Facility:[facility] Start: 08-13-2024 ambulatory Sameer Theo Facility:[facility] Start: 08-13-2024 End: 08-13-2024 ambulatory Marco Chi Jame Facility:[facility] Start: 08-02-2024 ambulatory Marco Chi Jame Facility:[facility] Start: 08-02-2024 End: 08-02-2024 ambulatory Marco Chi Jame Facility:[facility] Start: 07-27-2024 End: 07-27-2024 ambulatory Marco Chi Jame Facility:[facility] Start: 03-16-2024 End: 03-16-2024 ambulatory [facility] Work Phone: Start: 03-16-2024 End: 03-16-2024 Patient encounter procedure [facility] - [facility] Work Phone: Start: 01-26-2024 End: 01-26-2024 ambulatory [facility] Work Phone: Start: 01-26-2024 End: 01-26-2024 Patient encounter procedure [facility]-Laboratory, Phy Office 3rd Flr Start: 01-18-2023 End: 01-18-[address] Ginger Borrego Work Phone: [facility] Work Phone: Start: 01-18-2023 End: 01-18-[address] Ginger Borrego Work Phone: [facility]-Cardiovascula [facility] Start: 01-11-2023 Non-patient / Non-visit Dr. Sparks Work Phone: [facility] Start: 01-11-2023 Non-patient / Non-visit Dr. Sparks Work Phone: [facility] Start: 01-10-2023 Non-patient / Non-visit Dr. Sparks Work Phone: [facility] Start: 01-10-2023 Non-patient / Non-visit Dr. Sparks Work Phone: [facility] Start: 01-10-2023 End: 01-11-2023 Evaluation and management of inpatient [facility] Start: 01-10-2023 End: 01-11-[address] Ginger Borrego Work Phone: [facility] Work Phone: Start: 01-07-2023 Non-patient / Non-visit Dr. Sparks Work Phone: [facility] Start: 01-03-2023 End: 01-03-[address] Ginger Borrego Work Phone: [facility] Start: 12-30-2022 End: 12-30-2022 Non-patient / Non-visit Dr. Ginger Borrego Work Phone: [facility] Start: 12-02-2022 End: 12-02-2022 Patient encounter procedure Dr. Ginger Borrego Work Phone: [facility] Start: 11-23-2022 ambulatory GINGER Herrera y:[facility] Start: 11-18-2022 ambulatory GINGER Herrera y:[facility] Start: 11-08-[address] Ginger Borrego Facility:[id number] Start: 01-05-2021 End: 01-05-2021 Orders Only Latha Nicholas Work Phone: [facility] Start: 11-02-2018 End: 01-16-2019 Patient encounter procedure Ginger Borrego Facility:[facility] Start: 03-07-2018 End: 03-08-2018 [facility] Start: 01-12-2018 Ambulatory Ginger Borrego Facilit y:[place] Start: 01-12-2018 End: 01-12-2018 Ambulatory Ginger Borrego Work Phone: [facility] Procedures Date Procedure Procedure Detail Performing Clinician Start: 11-12-2024 XR knee, [address] Efrem Kilgore MD Work Phone: Start: 03-16-2024 MRI of brain with contrast Start: 01-26-2024 End: 01-26-2024 Radiologic examination of knee Start: 01-10-[address] Fide Borrego Work Phone: Start: 01-10-2023 Laminectomy,Lumbar M icro Decompression (Left) Dr. Ginger Borrego Work Phone: Start: 12-02-2022 Plain x-ray of pelvi s and lower extremity Dr. Ginger Borrego Work Phone: Start: 12-02-2022 X-ray of lumbar spin e, two or three views Dr. Ginger Borrego Work Phone: Nasal Screen MRSA/MSSA Dr. Cecil Borrego Work Phone: Plan of Treatment Date Care Activity Detail Author Start: 2028 RSV Vaccine (1 - 1-d ose 75+ series) RSV Vaccine (1 - 1-dose 75+ series) [facility] Start: 07-24-2026 End: 07-24-2026 Patient encounter procedure 07/24/2026 4:00 PM EDT Office Visit [facility] [address] [place] [address] Lewis Frost, OD [address] [place] [address] Diagn[facility] [address] [address] Return in one year for [facility] Comment on above: Return in one year f or DFE Start: 07-29-2025 Influenza vaccination Influenza Vacc ine (#1) [facility] Start: 07-18-2025 Medicare Annual Well ness Visit Medicare Annual Wellness Visit [facility] Start: 11-28-2024 Advance Directive Discussion Advance Directive Discussion [facility] Start: 01-11-2023 Patient discharge [facility] Start: 01-10-2023 Following clinical p athway protocol [facility] Start: 01-10-2023 Anesthesia lumbar re gion nos ANESTH SPINE CORD SURGERY [facility] Start: 01-10-2023 Lamnotmy incl w/dcmp rsn nrv root 1 intrspc lumbr LOW BACK DISK SURGERY [facility] Start: 01-10-2023 Application of intermittent pneumatic compression device [facility] Start: 01-10-2023 Catheterization of vein [facility] Start: 01-10-2023 Consultation [facility] Start: 01-10-2023 Following clinical p athway protocol [facility] Start: 01-10-2023 Incentive spirometry [facility] Start: 01-10-2023 Measuring intake and output [facility] Start: 01-10-2023 Neurovascular assessment [facility] Start: 01-10-2023 Oxygen therapy [facility] Start: 01-10-2023 Patient education [facility] Start: 01-10-2023 Procedure discontinued [facility] Start: 01-10-2023 Provision of activit y privileges [facility] Start: 01-10-2023 Recommendation to co ntinue with treatment [facility] Start: 01-10-2023 Referral to service [facility] Start: 01-10-2023 Taking patient vital signs [facility] Start: 01-10-2023 [facility] Start: 01-10-2023 Admission procedure [facility] Start: 01-10-2023 Continuous positive airway pressure ventilation treatment [facility] Start: 01-10-2023 Patient referral to dietitian [facility] Start: 2003 Pneumococcal Vaccine : 50+ (1 of 1 - PCV) Pneumococcal Vaccine: 50+ (1 of 1 - PCV) [facility] Start: 2003 Shingrix Vaccine (1 of 2) Mckenna grix Vaccine (1 of 2) [facility] Start: 1998 Diabetes Screening Diabetes Screenin g [facility] Start: 1998 Screening for malign ant neoplasm of colon [facility] Start: 1988 Lipid panel Lipid Screening [facility] Start: 1972 Urine microalbumin profile DTa P,Tdap,Td Vaccine (1 - Tdap) [facility] Start: 1971 Anxiety Screening Anxiety Screening [facility] Start: 1971 Depression Screening Depression Scre ening [facility] Start: 1971 Hepatitis C screening [facility] Patient referral [facility] Work Phone: Immunizations Immunization Date Immunization Notes Care Provider Fa leidy 07-27-2024 influenza, injectabl e, quadrivalent, preservative free Dr. Marco Kilgore MD Work Phone: [facility] Payers Date Payer Category Payer Private Health Insurance [id number] 2024 Private Health Insurance [employer] [id number] 2024 Self-pay [id number] 2024 Unknown PLAN N 2023 Unknown [id number] 2018 Unknown 2018 Medicare 2018 Medicare [id number] 2014 Unknown [id number] 1955 Unknown [id number] 2.16.840.1.601497.3.579.2. 717 1953 Unknown [id number] 2.16.840.1.866806.3.579.2. 1069 1953 Unknown [id number] 2.16.840.1.912394.3.579.2. 478 1953 Unknown [id number] 2.16.840.1.286773.3.579.2. 478 1953 Unknown [id number] 2.16.840.1.643115.3.579.2. 124 1953 Unknown [id number] 2.16.840.1.301741.3.579.2. 124 1953 Unknown [id number] 2.16.840.1.724512.3.579.2. 1242 1953 Unknown [id number] 2.16.840.1.190215.3.579.2. 1242 1953 Unknown [id number] 2.16.840.1.645073.3.579.2. 1242 1953 Unknown [id number] 2.16.840.1.973039.3.579.2. 1242 1953 Unknown [id number] 2.16.840.1.571788.3.579.2. 124 1953 Unknown [id number] 2.16.840.1.355932.3.579.2. 124 1953 Unknown [id number] 2.16.840.1.230666.3.579.2. 1242 1953 Unknown [id number] 2.16.840.1.693005.3.579.2. 1242 1953 Unknown [id number] 2.16.840.1.290183.3.579.2. 1242 1953 Unknown [id number] 2.16.840.1.947776.3.579.2. 1242 1953 Unknown [id number] 2.16.840.1.396940.3.579.2. 1242 1953 Unknown [id number] 2.16.840.1.673517.3.579.2. 1242 1953 Unknown [id number] 2.16.840.1.036936.3.579.2. 1242 1953 Unknown [id number] 2.16.840.1.821366.3.579.2. 1242 1953 Unknown [id number] 2.16840.1.103252.3.579.2. 1243 Unknown [id number] Unknown [id number] 2.16.840.1.098275.3.579.2. 462 Unknown [id number] 2.16.840.1.495298.3.579.2. 462 Unknown [id number] 2.16.840.1.864241.3.579.2. 462 Unknown [id number] 2.16.840.1.762422.3.579.2. 462 Unknown [id number] 2.16.840.1.565456.3.579.2. 462 Unknown [id number] 2.16.840.1.953463.3.579.2. 462 Unknown [id number] 2.16.840.1.203867.3.579.2. 462 Unknown [id number] 2.16.840.1.392195.3.579.2. 462 Unknown [id number] 2.16.840.1.501895.3.579.2. 462 Unknown [id number] 2.16.840.1.563591.3.579.2. 462 Unknown [id number] 2.16.840.1.109170.3.579.2. 462 Unknown [id number] 2.16.840.1.940072.3.579.2. 462 Unknown [id number] 2.16.840.1.621019.3.579.2. 462 Unknown [id number] 2.16.840.1.789106.3.579.2. 462 Unknown [id number] 2.16.840.1.621162.3.579.2. 462 Unknown [id number] 2.16.840.1.465594.3.579.2. 462 Unknown [id number] 2.16.840.1.282390.3.579.2. 462 Unknown [id number] 2.16840.1.453869.3.579.2. 462 Unknown [id number] 2.16.840.1.200774.3.579.2. 462 Unknown [id number] 2.16.840.1.826489.3.579.2. 462 Unknown [id number] 2.16840.1.196635.3.579.2. 462 Unknown [id number] 2.16840.1.600671.3.579.2. 462 Unknown [id number] 2.16840.1.548643.3.579.2. 462 Unknown [id number] 2.16840.1.944339.3.579.2. 462 Unknown [id number] 2.16840.1.567253.3.579.2. 462 Social History Date Type Detail Facility Start: 01-13-2018 End: 02-23-2023 Tobacco smoking status MTIS Unknown if ever smoked [facility] Start: 1955 Sex Assigned At Not on file [facility] Work Phone: Start: 1955 Sex Assigned At Male W [facility] Start: 05-23-2018 End: 09-19-2024 Tobacco smoking status NHIS Never smoked tobacco (finding) [facility] Start: 02-08-2025 Sex Male (finding) [facility] Start: 05-23-2018 Tobacco use and exposure Smokeless tobacco non-user [facility] Start: 07-18-2025 Alcoholic beverage intake Current drinker of alcohol (finding) [facility] Start: 07-18-2025 History of Social function [facility] Start: 07-18-2025 Tobacco use panel [facility] Start: 10-22-2015 [facility] Start: 10-29-2012 Sex Male [facility] Medical Equipment Procedure Code Equipment Code Equipment Origin al Text Equipment Identifier Dates PATCH,AMNION 2X3CM FDA Start: 01-10-2023 PATCH,AMNION 2X3CM FDA Start: 01-10-2023 PATCH,AMNION 2X3CM FDA Start: 01-10-2023 PATCH,AMNION 2X3CM FDA Start: 01-10-2023 PATCH,AMNION 2X3CM FDA Start: 01-10-2023 ([id number]) Metal-backed pat lucero prosthesis ()[id number] FDA Start: 10-03-2024 ([id number]) Coated knee femu r prosthesis ()[id number] FDA Start: 10-03-2024 ([id number]) Coated knee tibi a prosthesis ()[id number] FDA Start: 10-03-2024 ([id number]) Tibial insert ()[id number] FDA Start: 10-03-2024 PATCH,AMNION 2X3CM FDA Start: 01-10-2023 Goals Date Patient Goal Desired Activity /State Functional Status Date Assessment Result Facility 01-11-2023 Functional status Chair [facility] Work Phone: Mental Status Date Assessment Result Facility 01-11-2023 Cognitive function Touch/Shaking [facility] Work Phone: Clinical Notes 01-07-2023 to 07-18-2025 Lewis Frost, OD - 07/18/2025 2:08 PM EDT Note Date & Type Note Facility 07-18-2025 Note HNO ID: [id number] Author: LEWIS FROST OD Service: ? Author Type: Stone Polisher Type: Progress Notes Filed: 07/18/2025 14:09 Note Text: ASSESSMENT/PLAN: 1. Vitreous floaters of both eyes - ICD9: 379.24, ICD10: H43.393 (primary diagnosis) Educate patient on signs and symptoms of retinal detachment and to return to clinic with increase in flashes/floaters, or decrease in peripheral vision. Monitor. 2. Age-related nuclear cataract of both eyes - ICD9: 366.16, ICD10: H25.13 Educate patient on ultraviolet protection and yearly eye exams. Return to clinic sooner with changes in vision, or increase in glare with night time driving. 3. Presbyopia - ICD9: 367.4, ICD10: H52.4 Updated spectacle prescription, and educated patient to adaptation to new prescription. Return to clinic with changes to vision, otherwise follow up yearly. Lewis Frost, OD July 18, 2025 2:08 PM [facility] 07-18-2025 History of Present illness Narrative ASSESSMENT/PLAN: 1. Vitreous floaters of both eyes - ICD9: 379.24, ICD10: H43.393 (primary diagnosis) Educate patient on signs and symptoms of retinal detachment and to return to clinic with increase in flashes/floaters, or decrease in peripheral vision. Monitor. 2. Age-related nuclear cataract of both eyes - ICD9: 366.16, ICD10: H25.13 Educate patient on ultraviolet protection and yearly eye exams. Return to clinic sooner with changes in vision, or increase in glare with night time driving. 3. Presbyopia - ICD9: 367.4, ICD10: H52.4 Updated spectacle prescription, and educated patient to adaptation to new prescription. Return to clinic with changes to vision, otherwise follow up yearly. Lewis Frost, YODIT July 18, 2025 2:08 PM documented in this encounter [facility] 10-15-2024 Evaluation note Diagnosis Onset Date Resolution Orthopedic aftercare acute [facility] 2023 9:17am S/P total knee arthroplasty acute October 15, 2 024 9:17am Orthopedic aftercare acute [facility] 2023 9:22am Orthopedic aftercare acute Demian miguelito 2024 9:13am [facility] Work Phone: 1(251) 707-868011-07-2024 [facility] Medical Records Department [address] [place] [address] Discharge Summary 10/04/24 [facility] MR#: [id number] Acct: [id number] Name: GAEL JIMENEZ JrFide Rep #: [id number] : 1955 69 From: Gabriel Cornelius DO PCP: Dr. Marco Kilgore MD Status:ADM IN [facility] Providers Date of Admission: 10/03/24 Primary Care Physician: Dr. Mraco Kilgore MD Reason For Visit: ERAS Left Total Knee Replacement Ro Diagnosis Discharge Diagnosis (1) S/P total knee arthroplasty: Status: Acute Code(s): Z96.659 - Presence of unspecified artificial knee joint Qualifiers: Laterality: left Qualified Code(s): Z96.652 - Presence of left artificial knee joint Plan Postop day #1 left total knee arthroplasty PT OT weightbearing as tolerated Pain control oxycodone Tylenol DVT prophylaxis SCDs MARIIA hose Eliquis 2.5 mg twice daily Patient requesting to be discharged home he is doing surprisingly very well I have no concerns Medications at Discharge Home Medications omeprazole 40 mg capsule,delayed release 40 mg PO DAILY GERD 12/02/22 amlodipine 5 mg tablet 5 mg PO QDAY BP 08/14/24 aspirin 81 mg tablet,delayed release (Adult Low Dose Aspirin) 81 mg PO QDAY SUPPLEMENT 08/14/24 atorvastatin 40 mg tablet 40 mg PO QHS CHOLESTEROL 08/14/24 cholecalciferol (vitamin D3) 25 mcg (1,000 unit) tablet 25 mcg PO QDAY SUPPLEMENT 08/14/24 levothyroxine 200 mcg tablet (Synthroid) 400 mcg PO SA THYROID 08/14/24 tamsulosin 0.4 mg capsule (Flomax) 0.8 mg PO QHS PROSTATE 08/14/24 loratadine 10 mg tablet (Allerclear) 10 mg PO DAILY ALLERGIES 09/19/24 acetaminophen 500 mg tablet 1,000 mg (2 x 500 mg) PO Q6H #90 tabs 10/04/24 apixaban 2.5 mg tablet (Eliquis) 2.5 mg PO BID 21 days #42 tabs 10/04/24 oxycodone 5 mg tablet 5 - 10 mg (1 - 2 x 5 mg) PO Q4H PRN pain 7 days #60 tabs 10/04/24 Hospital Course Operations total knee replacement Summary of Care Provided Hospital Course: Who has long history of degenerative joint disease to the knee who has failed conservative treatment and wished to undergo elective total knee arthroplasty. Patient underwent the aformentioned procedure on the admission date without any intraoperative complications. Patient did receive pre- and postoperative antibiotics which were discontinued within 23 hours postoperatively. Patient did receive [spinal anesthesia as well as an adductor canal block postoperatively]. pain was controlled with IV and transition to p.o. pain medication Patient will be discharged home with oxycodone and will continue Tylenol as well. Patient had minimal intraoperative blood loss and 2gm tranexamic acid was administered there was no need for postoperative blood transfusion Patients vital signs remained stable. Patient was started on both mechanical and chemical DVT per prophylaxis postoperatively in the form of SCDs MARIIA hose and [Eliquis 2.5 mg twice daily for which she will continue for 3 additional weeks post hospital discharge given he did have a previous DVT in the left lower extremity. thigh high mariia hose placed over top of the meplix silver dressing. This should be removed 72 hrs post operatively and showering begun daily at that time with warm water and antibacterial soap. not to submerge for 3 weeks. To change dressing daily after first dressing change. Patient will follow-up in the office in 2 weeks. No intrahospital complications. Weight / BMI Weight Weight: 222 lb 10.67 oz Body Mass Index (BMI) 34.9 ABG / Lab / Microbiology Data 10/04/24 06:50 10/04/24 06:50 Laboratory: Laboratory Results - last 24 hr 10/03/24 10:15: POC Glucose 157 H 10/04/24 06:50: WBC 13.3 H, RBC 4.40 L, Hgb 13.2, Hct 40.0, MCV 90.9, MCH 30.0, MCHC 33.0, RDW Std Deviation 42.7, RDW Coeff of Paul 12.9, Plt Count 276, MPV 9.0, Sodium 137, Potassium 4.2, Chloride 108 H, Carbon Dioxide 24.0, Anion Gap 5, BUN 16, Creatinine 1.13, Estim Creat Clear Calc 67.90, Est GFR (MDRD) Af Amer 82, Est GFR (MDRD) Non-Af 68, BUN/Creatinine Ratio 14.2, Glucose 145 H, Calcium 8.5 Microbiology: Microbiology 09/19/24 13:36 Swab (Method) Nasal Screen MRSA/MSSA - Final Radiography Diagnostic Testing: Radiology Impression Knee X-Ray 10/03/24 13:28 IMPRESSION: Status post left total knee replacement. There is good alignment. Postoperative soft tissue changes. Electronically Signed: Antonio Landrum MD at 14:06 EST Reading Location ID and State: [facility] / [place] , Service support , D/C Instructions Discharge Diet: No restrictions Call your doctor if you observe: Shortness of breath and Chest pain Additional Dressing/Incision Instructions: Ice and elevate lower extremities 2 weeks while not ambulating. Ambulation is encouraged. Weight bearing as tolerated. Use assistive devise for stability. En (more content not included)...[facility]11-06-2024 [facility] Medical Records Department [address] [place] [address] History Physical Exam 10/03/24 1019 MR#: [id number] Acct: [id number] Name: GAEL JIMENEZ Jr. Rep #: [id number] : 1955 69 From: Gabriel Cornelius DO PCP: Dr. Marco Kilgore MD Status:ADM IN Location: [place] [address] History and Physical Date of Admission: 10/03/24 [facility] [address] [place] [address] [address] [place] [address] OFFICE VISIT Date of Service: 08/17/24 MR#: [id number] Acct: [id number] Name: GAEL JIMENEZ Jr. Rep #: [id number] : 1955 Provider: Dr. Gabriel Cornelius DO Age/Sex: 69/M Location: [facility] Status: Signed Intake Vital Signs 01/11/2314:02 08/01/2415:05 08/17/2408:02 Height 5 ft 5 in 5 ft 5 in 5 ft 6 in Weight: 227 lb BMI 36.6 Intake Visit Reasons: BILAT KNEES Chief Complaint: bilateral knee pain Is patient in pain?: Yes (bilateral knees) Pain scale (1-10): 9 Allergies No Known Allergies Allergy (Verified 08/17/24 08:04) Medications ???Medication ???Instructions ???Recorded ???Confirmed ???Type omeprazole 40 mg capsule,delayed 40 mg PO DAILY 12/02/22 08/14/24 History release amlodipine 5 mg tablet 5 mg PO QDAY 08/14/24 08/14/24 History aspirin 81 mg tablet,delayed 81 mg PO QDAY 08/14/24 08/14/24 History release (Adult Low Dose Aspirin) atorvastatin 40 mg tablet 40 mg PO QHS 08/14/24 08/14/24 History cholecalciferol (vitamin D3) 25 25 mcg PO QDAY 08/14/24 08/14/24 History mcg (1,000 unit) tablet levothyroxine 200 mcg tablet 200 mcg PO QDAY 08/14/24 08/14/24 History (Synthroid) tamsulosin 0.4 mg capsule (Flomax) 0.8 mg PO DAILY 08/14/24 08/14/24 History Have you fallen in the past year?: Yes PFSH Medical History DVT (deep venous thrombosis) Ischemic stroke Essential hypertension Hyperlipidemia Hypothyroidism CPAP (continuous positive airway pressure) dependence Vitamin D deficiency BPH (benign prostatic hyperplasia) Osteoarthritis GERD (gastroesophageal reflux disease) Lower back pain HNP (herniated nucleus pulposus), lumbar Wears glasses Cancer Depression Anxiety Arthritis Back pain Dietary restriction Sleep apnea Shortness of breath on exertion Leg cramps History of pain when walking History of stress test History of irregular heartbeat Melanoma Surgical History History of colonoscopy S/P laminectomy Hx of ventral hernia repair Hx of knee surgery Family History Father CVA (cerebral vascular accident)Other Arthritis Diabetes Social History Smoking Status: Never smoker alcohol intake: never substance use type: does not use HPI BILAT KNEES Chief Complaint: bilateral knee pain Details: This documentation accurately reflects the service provided and the decisions made by me, Dr. Gabriel Cornelius, DO 08/17/24 08. Part of today???s visit was documented by María LOPEZ, acting as scribe. GAEL JIEMNEZ is a 69 year old M here today for bilateral knee pain. Pt. advises he has experienced bilateral knee pain for 10 years and is progressively gotten worse. He states he has a constant dull ache and when he states the ache worsens with weight bearing, walking and standing. He states the left knee is worse. He states he has been experiencing popping, clicking and weakness. He states they have not given out but he is concerned they will. He was referred by Dr. Kilgore . He states he had an injection in his left knee a couple years ago in [facility]. He states he had right knee surgery about 10 years ago at [facility] but denies previous surgery on the left knee. He has been treating pain with Advil. He denies any PT. He states that Dr. Ramirez tried an injection about 2 -3 years ago but is unsure what kind of injection it was. He states that he can walk about 300ft before the left knee pain gets severe and radiates up into the hip. His left knee is starting to affect his activities. He did have a brain MRI that did show he had 2 strokes but is unsure when they occurred. He has had history of back surgery and does have lateral sided thigh pain when the knee pain gets bad. Denies radicular symptoms Ortho Exam General General: Yes no acute distress Neurologic: Yes alert and Yes oriented x3 Psychologic: Yes reasonable and appropriate Right Knee Skin/Wound: No erythema, No ecchymosis and No swelling Knee ROM: Yes ROM-Extension -20 to 0 (-8) and Yes RO (more content not included)...[facility]02-14-[address] Caceres [facility] January 11, 2023 2:35pm Note Date/Time January 11, 2023 8:46am [facility] Medical Records Department [address] [place] [address] Progress Note - Hospitalist 01/11/23 0846 MR#: [id number] Acct: [id number] Name: GAEL JIMENEZ . Rep #:[id number] : 1955 67 From: Alessandro Jacob PCP: Dr. Ginger Borrego MD Status:ADM CHIARA Location: [place] [address] Reason for Visit Reason for Visit: Diagnoses Hypoxemia (01/10/23) Encounter for other preprocedural examination (01/10/23) Subjective Subjective Follow-up for lumbar laminectomy. Objective Data Objective Data Vital Signs: Vital Signs Temp Pulse Resp BP Pulse Ox O2 Del Method O2 Flow Rate 98.8 F 66 15 131/87 H 96 Nasal Cannula 3 01/11/23 06:20 01/11/23 06:20 01/11/23 06:20 01/11/23 06:20 01/11/23 07:01 01/11/23 07:01 01/11/23 07:01 Oxygen Flow Rate (L/min) 3 Oxygen Delivery Method Nasal Cannula Weight: 226 lb 3.2 oz Body Mass Index (BMI) 37.6 Intake & Output: Intake and Output for Last 24 Hours 01/09/23 01/10/23 01/11/23 23:59 23:59 23:59 Intake Total 2837 / 3437 2128.34 / 2128.34 Output Total 550 / 1400 1650 / 1650 Balance 2287 / 2037 478.34 / 478.34 Lab / Micro Data Result Diagrams: 12/30/22 09:02 12/30/22 09:02 Micro: Microbiology 12/30/22 09:02 Swab (Method) Nasal Screen MRSA/MSSA - Final Radiography Diagnostic Testing: Radiology Impression Spine X-Ray 01/10/23 08:45 IMPRESSION: The localization instrument is seen overlying the L2-L3 disc space level. Electronically Signed: Antonio Landrum MD at 10:05 EST , Physical Exam Narrative Seen and examined. Patient states does not have lumbar back pain. His lower back pain, numbness and leg pain has resolved. He feels very happy. Patient walking along the hallway. Physical exam General: Alert, Oriented x3, Cooperative HEENT: Atraumatic, PERRLA, EOMI, Normocephalic Oral: Oral mucosa moist. No Gingival or Mucosal Lesions/ Ulcerations Neck: Supple, No JVD, Negative Carotid Bruits Lungs: Air entry diminished in bilateral lung bases. No crepitation/rhonchi Cardiovascular: Regular rate, Regular Rhythm, Normal S1, Normal S2, No murmurs Abdomen: Bowel Sounds Present, Soft, Non Tender, Non-Distended : No renal angle tenderness. No suprapubic tenderness. Extremities: No edema, Capillary Refill Less than 3 Seconds Skin: No rashes, No breakdown Musculoskeletal/spine: Surgical dressing dry over lumbar spine. No drain. No acute tenderness or swelling/hematoma. ROM acceptable at lumbar spine, patient sitting up. Neurological: Cranial nerves II-XII grossly intact, DTR 2+/4 and Symmetrical, Neuro grossly intact Psych/Mental Status: Normal Affect, Appropriate. Assessment & Plan Assessment/Plan (1) Hypoxia: PLAN: Plan This is a 14-year-old gentleman admitted for elective lumbar laminectomy surgery. 1. Herniated disc L2-3 with severe left L3 radiculopathy complicated with intractable radicular pain and neurological deficit with numbness: Postop day 1. Patient had lumbar laminectomy and discectomy L2-3 on the left on 01/10/2023. Discussed with Dr. Trejo. Patient is comfortable standing up and walking alongthe hallway. Patient is getting discharged. Pain is well controlled. Patient has follow-up with Dr. Trejo. 2. Acute hypoxia likely related to atelectasis: Resolved. Patient was on 4 L ofoxygen. No hypoxia or tachypnea. No pneumonia. Encouraged to continue incentive spirometry. 3. Hypertension, controlled, continue on amlodipine, lisinopril 4. Hyperlipidemia, continue atorvastatin 5. Hypothyroidism, continue on synthroid 6. DVT prophylaxis?orthopedic surgery per orthopedic surgery -SCDs Hospitalist team will sign off. Charges/Coding Visit Charges Inpatient E&M: 47307 Subs Hosp L2 01/11/23 1435 <Electronically signed by Alessandro Caceres MD> Cosigner Signature (if applicable): CC: ~ Signed [facility] Work Phone: 1(138) 354-547102-13-[address] Rebolledo [facility] January 10, 2023 3:29pm Note Date/Time January 10, 2023 3:04pm [facility] Medical Records Department [address] [place] [address] Progress Note - Hospitalist 01/10/23 1504 MR#: [id number] Acct: [id number] Name: GAEL JIMENEZ JrFide Rep #:[id number] : 1955 67 From: Vanessa Rebolledo MD PCP: Dr. Ginger Borrego MD Status:ADM CHIARA Location: [place] [id number] Reason for Visit Reason for Visit: Diagnoses Encounter for other preprocedural examination (01/10/23) Subjective Subjective Consult for postop medical management: 67-year-old male with past medical history of STEVE, hypertension, hyperlipidemia,GERD, hypothyroidism who comes in for elective left lumbar laminectomy/discectomy L2- L3. He has been complaining of lumbar radiculopathy ongoing for 8 to 10 years. Conservative treatment with ibuprofen/Tylenol and physical therapy was not helping. Patient was seen in the immediate postop. He is on 6 L of oxygen. His oxygen sats were staying around 89 to 90%. He denied any use of home oxygen. Denied any chest pain or dizziness or palpitations or fever or chills. Objective Data Objective Data Vital Signs: Vital Signs Temp Pulse Resp BP Pulse Ox O2 Del Method O2 Flow Rate 98.2 F 57 L 16 122/79 H 90 Nasal Cannula 4 01/10/23 14:41 01/10/23 14:41 01/10/23 14:41 01/10/23 14:41 01/10/23 14:41 01/10/23 14:41 01/10/23 14:41 Oxygen Flow Rate (L/min) 4 Oxygen Delivery Method Nasal Cannula Weight: 102.603 kg Body Mass Index (BMI) 37.6 Intake & Output: Intake and Output for Last 24 Hours 01/08/23 01/09/23 01/10/23 23:59 23:59 23:59 Intake Total 0 / 2110 Output Total 250 / 250 Balance 1860 / 1860 Lab / Micro Data Result Diagrams: 12/30/22 09:02 12/30/22 09:02 Labs: Laboratory Results - last 24 hr 01/10/23 06:04: POC Glucose 186 H Micro: Microbiology 12/30/22 09:02 Swab (Method) Nasal Screen MRSA/MSSA - Final Radiography Diagnostic Testing: Radiology Impression Spine X-Ray 01/10/23 08:45 IMPRESSION: The localization instrument is seen overlying the L2-L3 disc space level. Electronically Signed: Antonio Landrum MD at 10:05 EST Reading Location ID and State: [address] [place] [address] , Service support , Physical Exam Narrative General: Alert, Oriented x3, Cooperative, on 4 L of oxygen HEENT: Atraumatic, PERRLA, EOMI, Normocephalic Oral: Moist Mucosa Neck: Supple Lungs: Normal air movement, Diminished Cardiovascular: Regular rate, Regular Rhythm, Normal S1, Normal S2, No murmurs Abdomen: Bowel Sounds Present, Soft, Non Tender, Non-Distended, No Hepato-splenomegaly Extremities: No edema Skin: No rashes Neurological: Cranial nerves II-XII grossly intact, Neuro grossly intact Psych/Mental Status: Normal Affect, Appropriate pleasant Assessment & Plan Assessment/Plan (1) Hypoxia: PLAN: Plan 1.POD #0 status post left L2 to?L3 laminectomy, Patient's pain is fairly controlled, continue current pain management PT/OT to evaluate and treat 2. Acute hypoxia likely related to atelectasis Patient is currently on 4 L of oxygen Continue to encourage use of incentive spirometer 3. Hypertension, controlled, continue on amlodipine, lisinopril 4. Hyperlipidemia, continue atorvastatin 5. Hypothyroidism, continue on synthroid 6. DVT prophylaxis?orthopedic surgery per orthopedic surgery -SCDs Charges/Coding Visit Charges Office Visits / Consults: 96327 OP Consult L5 01/10/23 4378 <Electronically signed by Vanessa Rebolledo MD> Cosigner Signature (if applicable): CC: ~ Signed [facility] Work Phone: 1(574) 915-193902-13-2023 Procedure [facility] 01-07-2023 History and physical note Author Dr. Trejo [facility] January 07, 2023 9:49am Note Date/Time January 07, 2023 9:49am [facility] Medical Records Department [address] [place] [address] History & Physical Exam 01/07/2348 MR#: [id number] Acct: [id number] Name: GAEL JIMENEZ Jr. Rep #:[id number] : 1955 67 From: Chuck Esqueda PCP: Dr. Ginger Borrego MD [place] [facility] [facility] and Physical Addendum MR#: [id number] Acct: [id number] Name:? GAEL JIMENEZ Jr. Rep #: [id number] : 1955 ? ? Provider: Dr. Chuck Trejo, Age/Sex:? 67/M ? ? Location: [facility] [place] Status: Signed Intake Vital Signs ? 11/10/1510:59 12/02/2307:28 Height 5 ft 5 in 5 ft 5 in Weight: ? 216 lb 6 oz BMI ? 36.0 Intake Visit Reasons:?LUMBER SPINE Is patient in pain?: Yes Pain scale (1-10): 10 Allergies No Known Allergies Allergy (Verified 12/02/22 08:28) Medications aspirin 81 mg tablet,delayed release (Adult Low Dose Aspirin) 81 mg PO DAILY 11/05/15 [History Confirmed 12/02/22] atorvastatin 10 mg tablet 20 mg PO QHS 11/05/15 [History Confirmed 12/02/22] acetaminophen 500 mg tablet (Tylenol Extra Strength) 500 mg PO Q6H PRN 12/02/22 [History Confirmed 12/02/22] amlodipine 5 mg tablet 5 mg PO DAILY 12/02/22 [History Confirmed 12/02/22] ibuprofen 400 mg tablet 400 mg PO Q8H 12/02/22 [History Confirmed 12/02/22] levothyroxine 200 mcg capsule 200 mcg PO DAILY 12/02/22 [History Confirmed 12/02/22] lisinopril 5 mg tablet 5 mg PO DAILY 12/02/22 [History Confirmed 12/02/22] omeprazole 40 mg capsule,delayed release 40 mg PO DAILY 12/02/22 [History Confirmed 12/02/22] PFSH Medical History?(Updated 12/02/22 @ 09:[address] Chuck Trejo, ) Melanoma Surgical History?(Updated 12/02/22 @ 08:48 by Wendy Torres) Hx of knee surgery Family History?(Updated 12/02/22 @ 08:49 by Wendy Torres) Father CVA (cerebral vascular accident)Other Arthritis Diabetes Social History Smoking Status:? Never smoker alcohol intake:? never HPI LUMBER SPINE Details: Parts of this documentation were recorded by a scribe, this documentation accurately reflects the service provided and the decisions made by me, Dr. Chuck Trejo, 12/02/22 0825. GAEL JIMENEZ is a 67 year old M here today for lower back pain that radiates down his left leg. Denies any known injury. States that he has been been dealing withthe pain for 8-10 years that has progressively gotten worse. Denies any previoussurgery on his back. States that morning are the worst for his pain. States thatwithin the last month it has gotten worse and worse. Notes that there isn't anything specific that increases his pain but his pain is constant and sometimesit fades during the day but then comes right back. Pt. did bring an MRI disc with him as well today. Denies using ice or heat. States that he takes Ibuprofenand Tylenol for the pain which does help a little bit. Denies any previous injections in his back. Pt. has done PT which was 4 years ago which did help a little bit but doesn't help now and did some HEP with that as well which helped a little then but not now. Denies any bowel or bladder dysfunction. Mr. Jimenez is a pleasant gentleman who presents in the company of his daughter.? He has had the pain in the left quad for a long time however a month or so ago it started getting much much worse.? Now the pain has become intractable.? He denies any bowel or bladder dysfunction.? He denies history of unexplained weight loss night fever sweats or chills. On examination he can stand on his toes and he can stand on his heels with difficulty.? Forward bending increases the pain instead as does extension.? He has atrophy of the left quad as compared to the right.? The left patellar reflexis absent the right 1 is but barely perceptible.? He has weakness of the quads on the left as compared to the right.? He has no long tract signs.? Clonus is absent Babinski's are downgoing. I reviewed his MRI scan demonstrates that he has a very large L2-3 disc more to the left side that goes all the way down to nearly L3-4.? In addition he has smaller herniation all the way across at L3-4.? And he has yet another 1 at L1 to.? His main problem however is undoubtedly the large L2-3 herniation.? I suspect we will we will be able to ignore the other 2 as they are not a major problem.? He is obviously got degeneration throughout his lumbar spine with degenerative disc disease of every single level. Plain x-rays demonstrate that he has degenerative disc disease at every single level in his lumbar spine.? I also x-rayed his left hip which demonstrated only very mild degenerative changes.? We will schedule him for lumbar laminectomy L2-3 on the left side I will have to remove the top of the lamina of L3 also.? I will see him again at preop. Coding Level of Care Code Off vis,new,level 3 Diagnoses HNP (herniated nucleus pulposus), lumbar? M51.26 Time Spent (min) 35 Assessment and Plan Assessment and Plan (1) HNP (herniated nucleus pulposus), lumbar: 01/07/23 0949 <Electronically signed by Chuck Trejo DO> Cosigner Signature (if applicable): CC: Dr. Ginger Borrego MD; Dr. Chuck Trejo DO~ Signed [facility] Work Phone: Discharge summary Author Dr. Trejo [facility] January 11, 2023 1:34pm Note Date/Time January 11, 2023 1:33pm [facility] Medical Records Department [address] [place] [address] Instructions for Home/Discharge Instructions 01/11/23 1332 MR#: [id number] Acct: [id number] Name: GAEL JIMENEZ JrFide Rep #:[id number] : 1955 67 From: Chuck Esqueda PCP: Dr. Ginger Borrego MD Status:ADM CHIARA Discharge Instructions Activity May shower in (days): 5 May resume sexual activity in: 4-6 weeks Weight Bearing Status: Full weight bearing Lifting Restrictions: 15# Follow Up Care Test Results: Test results from this visit will be discussed in further detail at your follow- up appointment, if applicable. Discharge Plan Admission Admit Date/Time: 01/10/23 11:42 Primary Reason for Your Visit: back surgery Attending Provider: Chuck Trejo Primary Care Provider: Ginger Borrego Consulting Providers: Alessandro Caceres Discharge Orders/Prescriptions Prescriptions: No Action omeprazole 40 mg capsule,delayed release(DR/EC) 40 mg PO DAILY amlodipine 5 mg tablet 5 mg PO DAILY lisinopril 5 mg tablet 5 mg PO DAILY levothyroxine 200 mcg capsule 400 mcg PO SA ibuprofen 400 mg tablet 400 mg PO Q6H acetaminophen [Tylenol Extra Strength] 500 mg tablet 500 mg PO Q6H PRN (Reason: Pain) atorvastatin 10 MG tablet 20 mg PO DAILY Referrals / Follow Up: Ginger Borrego MD [Primary Care Provider] - Disposition Disposition (needs filled in before D/C Order can be placed): Home, Self Care 01/11/231333<Electronically signed by Chuck Trejo DO>Chuck Trejo DO CC: Dr. Ginger Borrego MD; Dr. Alessandro Caceres MD ~ Signed [facility] Work Phone: Discharge summary Author Dr. Trejo [facility] January 11, 2023 1:36pm Note Date/Time January 11, 2023 1:36pm [facility] Medical Records Department [address] [place] [address] Discharge Summary 01/11/231333 MR#: [id number] Acct: [id number] Name: GAEL JIMENEZ JrFide Rep #:[id number] : 1955 67 From: Chuck Esqueda PCP: Dr. Ginger Borrego MD Status:ADM CHIARA [id number] Providers Date of Admission: 01/10/23 Primary Care Physician: Dr. Ginger Borrego MD Attending Physician: Postop day #1. Patient is doing quite well. He has been walking the halls withhis walker although he states he does not really needed. His left thigh pain iscompletely gone. He is extremely pleased about that. Neurologically he is intact in both lower extremities. His dressing is dry. He was given postop protocol regarding his activities. He was told that in 4 days the dressing can be removed in 5 days he can start showering. He was in the company of his when I told him this. Protocol of course calls for him to be able to urinate prior to his discharge. I will give him oxycodone 5/325 for pain. He already has an appointment to see him in the office in a couple of weeks. This is the end of discharge summary on Oseas Jimenez. This is Dr. Trejo dictating. Consultations 01/10/23 12:12 Consult: Hospitalist Routine Consulting Provider: Vanessa Rebolledo Reason for Consult: Medical Management EMERGENT Consult: No MD Notified: Yes Date Notified: 01/10/23 Time Notified: 14:28 Method of Notification: Text Reason For Visit: LAMINECTOMY, LUMBAR, L2-3 LEFT Diagnosis Discharge Diagnosis (1) Hypoxia: Status: Acute Code(s): R09.02 - Hypoxemia Medications at Discharge Home Medications atorvastatin 10 mg tablet 20 mg PO DAILY 11/05/15 acetaminophen 500 mg tablet (Tylenol Extra Strength) 500 mg PO Q6H PRN Pain 12/02/22 amlodipine 5 mg tablet 5 mg PO DAILY 12/02/22 ibuprofen 400 mg tablet 400 mg PO Q6H 12/02/22 levothyroxine 200 mcg capsule 400 mcg PO SA 12/02/22 lisinopril 5 mg tablet 5 mg PO DAILY 12/02/22 omeprazole 40 mg capsule,delayed release 40 mg PO DAILY 12/02/22 Weight / BMI Weight Weight: 226 lb 3.2 oz Body Mass Index (BMI) 37.6 ABG / Lab / Microbiology Data Result Diagrams: 12/30/22 09:02 12/30/22 09:02 Microbiology: Microbiology 12/30/22 09:02 Swab (Method) Nasal Screen MRSA/MSSA - Final D/C Instructions May shower in (days): 5 May resume sexual activity in: 4-6 weeks Weight Bearing Status: Full weight bearing Meaningful Use Info Meaningful Use Diagnoses (Choose all that apply): None applicable Discharge Plan Admission Admit Date/Time: 01/10/23 11:42 Primary Reason for Your Visit: back surgery Attending Provider: Chuck Trejo Primary Care Provider: Ginger Borrego Consulting Providers: Alessandro Caceres Discharge Orders/Prescriptions Prescriptions: No Action omeprazole 40 mg capsule,delayed release(DR/EC) 40 mg PO DAILY amlodipine 5 mg tablet 5 mg PO DAILY lisinopril 5 mg tablet 5 mg PO DAILY levothyroxine 200 mcg capsule 400 mcg PO SA ibuprofen 400 mg tablet 400 mg PO Q6H acetaminophen [Tylenol Extra Strength] 500 mg tablet 500 mg PO Q6H PRN (Reason: Pain) atorvastatin 10 MG tablet 20 mg PO DAILY Referrals / Follow Up: Ginger Borrego MD [Primary Care Provider] - Disposition Disposition (needs filled in before D/C Order can be placed): Home, Self Care 01/11/23 1336 <Electronically signed by Chuck Trejo DO> Cosigner Signature (if applicable): CC: Dr. Ginger Borrego MD; Dr. Chuck Trejo DO~ Signed [facility] Work Phone: Evaluation note* Diagnosis Onset Date Resolution Status HNP (herniated nucleus pulposus), lumbar acute HNP (herniated nucleus pulposus), lumbar acute Hypoxia acute [facility] Work Phone: Evaluation note* Diagnosis Onset Date Resolution Status HNP (herniated nucleus pulposus), lumbar acute HNP (herniated nucleus pulposus), lumbar acute Hypoxia resolved [facility] Work Phone: Evaluation noteNo assessment information available [facility] Work Phone: Evaluation note* Diagnosis Onset Date Resolution Status Admit Date CVA (cerebral vascular accident) acu te June 25, 2025 8:45am Essential hypertension acute Ju 2024 8:45am Hyperlipidemia acute June 25, 2025 8:45am [facility] Work Phone: Evaluation note* Diagnosis Vitreous floaters of both eyes- Primary Age-related nuclear cataract of both eyes Senile nuclear sclerosis Presbyopia documented in this [facility])No reason for referral information availableWMercy [facility] Work Phone: Summary Purpose Family History No Family History Records Found Relationship Condition Age at Onset Recorded Date/T dania Not Specified Diabetes mellitus Unknown Arthritis Unknown father Cerebrovascular accident (CVA) Unknown Advance Directives No Advanced Directives Records Found Advance Directive Response Recorded Date/ Time Name of Medical Power of Senior Architect ROLAND JIMENEZ December 29, 2022 2:15pm Advance Directives No November 05, 2015 3:50pm Living Will No January 10, 2 023 2:22pm Power of Senior Architect No January 10, 2023 2:22pm Advance Directive Response Recorded Date/ Time Advance Directives No November 05, 2015 3:50pm Living Will No January 10, 2 023 2:22pm Power of Senior Architect No January 10, 2023 2:22pm Advance Directive Response Recorded Date/ Time Advance Directives No November 05, 2015 4:50pm Living Will No January 10, 2 023 3:22pm Power of Senior Architect No January 10, 2023 3:22pm Advance Directive Response Recorded Date/ Time Living Will No August 01, 2 024 3:05pm Power of Senior Architect No August 01, 2024 3:05pm Advance Directives No November 05, 2015 4:50pm Advance Directive Response Recorded Date/ Time Advance Directives No November 05, 2015 4:50pm Chief Complaint and Reason for Visit Chief Complaint LUMBER SPINE Rm 4 xray PREOP lumbar spine LAMINECTOMY, LUMBAR, L2-3 LEFT LAMINECTOMY, LUMBAR, L2-3 LEFT LAMINECTOMY, LUMBAR, L2-3 LEFT LAMINECTOMY, LUMBAR, L2-3 LEFT LAMINECTOMY, LUMBAR, L2-3 LEFT LAMINECTOMY, LUMBAR, L2-3 LEFT Reason for Visit HNP (herniated nucle us pulposus), lumbar HNP (herniated nucleus pulposus), lumbar Hypoxia Chief Complaint LUMBER SPINE Rm 4 xray PREOP lumbar spine LAMINECTOMY, LUMBAR, L2-3 LEFT LAMINECTOMY, LUMBAR, L2-3 LEFT LAMINECTOMY, LUMBAR, L2-3 LEFT LAMINECTOMY, LUMBAR, L2-3 LEFT LAMINECTOMY, LUMBAR, L2-3 LEFT LAMINECTOMY, LUMBAR, L2-3 LEFT POST SURGICAL LEFT LEG PAIN Reason for Visit HNP (herniated nucle us pulposus), lumbar HNP (herniated nucleus pulposus), lumbar Hypoxia Chief Complaint BILAT HEARING LOSS Chief Complaint Admit Date left knee October 15, 2024 9:17am left knee November 12, 2024 9:22am RM 2 November 12, 2024 9:34am LEFT KNEE December 26, 2024 9 :13am Reason for Visit Admit Date Orthopedic aftercare October 15, 2024 9:17am S/P total knee arthroplasty September 9:17am Orthopedic aftercare November 12, 2024 9:22am Orthopedic aftercare December 26, 2024 9:13am Chief Complaint Admit Date 6 M FU June 25, 2025 8:45 am Reason for Visit Admit Date CVA (cerebral vascular accident) June 252024 8:45am Essential hypertension June 25, 2025 8 :45am Hyperlipidemia June 25, 2025 8:45 am Additional Source Comments (unrecognized sect ion and content) No Status Records FoundNo Status Records FoundNo Status Records FoundNo Status Records FoundNo Status Records FoundNo Status Records FoundNo Status Records FoundNo Status Records Found INFORMATION SOURCE (unrecogn ized section and content) DATE CREATED AUTHOR 05/18/2018 [facility] ([place]) DATE CREATED AUTHOR AUTHOR'S ORGANIZ ATION 05/19/2018 [facility] DATE CREATED AUTHOR AUTHOR'S ORGANIZ ATION 01/16/2019 [facility] DATE CREATED AUTHOR AUTHOR'S ORGANIZ ATION 11/17/2022 [facility] DATE CREATED AUTHOR AUTHOR'S ORGANIZ ATION 11/24/2022 [facility] DATE CREATED AUTHOR AUTHOR'S ORGANIZ ATION 12/07/2024 [facility] DATE CREATED AUTHOR AUTHOR'S ORGANIZ ATION 06/26/2025 [facility] DATE CREATED AUTHOR AUTHOR'S ORGANIZ ATION 07/20/2025 [facility] Care Teams (unrecognized sec tion and content) Team Status: Active Member Role Status Dates Dr. Ginger Borrego MD Family Provider Active Dr. Ginger Borrego MD Primary Care Provider Active Team Status: Inactive Member Role Status Dates Dr. Ginger Borrego MD Primary Care Provider, Referrin g Provider Active Dr. Chuck Trejo DO Attending Provider Active Team Status: Inactive Member Role Status Dates Dr. Ginger Borrego MD Primary Care Provider Active Dr. Carl Tadeo MD Attending Provider Active Team Status: Active Member Role Status Dates Dr. Ginger Borrego MD Primary Care Provider Active Dr. Lukasz Head MD Attending Provider Activ e Dr. Chuck Trejo DO Referring Provider Active Team Status: Active Member Role Status Dates Dr. Ginger Borrego MD Primary Care Provider Active Dr. Chuck Trejo DO Attending Provide r, Referring Provider, Other Provider Active Team Status: Active Member Role Status Dates Dr. Ginger Borrgeo MD Primary Care Provider Active Dr. Chuck Trejo DO Admit Provider, A ttending Provider, Referring Provider, Other Provider Active Team Status: Active Member Role Status Dates Dr. Ginger Borrego MD Primary Care Provider Active Dr. Chuck Trejo DO Admit Provider, R eferring Provider, Other Provider Active Dr. Vanessa Rebolledo MD Attending Provider, Other Provider Active Team Status: Active Member Role Status Dates Dr. Ginger Borrego MD Primary Care Provider Active Dr. Chuck Trejo DO Admit Provider, A ttending Provider, Referring Provider, Other Provider Active Dr. Alessandro Caceres MD Other Provider Active Team Status: Active Member Role Status Dates Dr. Ginger Borrego MD Primary Care Provider Active Dr. Chuck Trejo DO Admit Provider, R eferring Provider, Other Provider Active Dr. Alessandro Caceres MD Attending Provider, Other Provi raymon Active Team Status: Inactive Member Role Status Dates Dr. Ginger Borrego MD Primary Care Provider Active Dr. Chuck Trejo DO Admit Provider, A ttending Provider, Referring Provider Active Dr. Alessandro Caceres MD Other Provider Active Team Status: Inactive Member Role Status Dates Dr. Ginger Borrego MD Primary Care Provider, Attendin g Provider Active Team Status: Active Member Role Status Dates Dr. Ginger Borrego MD Family Provider Active Dr. Marco Kilgore MD Primary Care Provider Active Team Status: Inactive Member Role Status Dates Dr. Marco Kilgore MD Primary Care Provi raymon, Attending Provider, Referring Provider Active Team Status: Inactive Member Role Status Dates Dr. Marco Kilgore MD Primary Care Provider Active Dr. Artemio Myers MD Attending Provider, Referring Pr ovider Active Team Status: Inactive Member Role Status Dates Dr. Marco Kilgore MD Primary Care Provider Active Start: October 15, 2024 End: October 15, 2024 Dr. Marco Kilgore MD Referring Provider Active Start: October 15, 2024 End: October 15, 2024 Dr. Gabriel Cornelius DO Attending Provider Active Start: October 15, 2024 End: October 15, 2024 Team Status: Inactive Member Role Status Dates Dr. Marco Kilgore MD Primary Care Provider Active Start: November 12, 2024 End: November 12, 2024 Dr. Marco Kilgore MD Referring Provider Active Start: November 12, 2024 End: November 12, 2024 Dr. Gabriel Cornelius DO Attending Provider Active Start: November 12, 2024 End: November 12, 2024 Team Status: Inactive Member Role Status Dates Dr. Marco Kilgore MD Primary Care Provider Active Start: November 12, 2024 End: November 12, 2024 Dr. Carl Tadeo MD Attending Provider Active S tart: November 12, 2024 End: November 12, 2024 Team Status: Inactive Member Role Status Dates Dr. Marco Kilgore MD Primary Care Provider Active Start: December 26, 2024 End: December 26, 2024 Dr. Marco Kilgore MD Referring Provider Active Start: December 26, 2024 End: December 26, 2024 Dr. Gabriel Cornelius DO Attending Provider Active Start: December 26, 2024 End: December 26, 2024 Team Status: Inactive Member Role Status Dates Dr. Marco Kilgore MD Primary Care Provider Active Start: January 28, 2025 End: January 28, 2025 Dr. Marco Kilgore MD Attending Provider Active Start: January 28, 2025 End: January 28, 2025 Team Status: Active Member Role/Relationship Status Dates Dr. Ginger Borrego MD Family Provider Active Dr. Marco Kilgore MD Primary Care Provider Active Team Status: Inactive Member Role/Relationship Status Dates Dr. Marco Kilgore MD Primary Care Provider Active Start: June 25, 2025 End: June 25, 2025 Dr. Marco Kilgore MD Referring Provider Active Start: June 25, 2025 End: June 25, 2025 JOSE Redding Attending Provider Active St art: June 25, 2025 End: June 25, 2025 Admission Discharge Rn Relationship Specialty Start Date End Date Ginger Borrego MD PCP - General Family Medicine 10/17/15 Goals (unrecognized section and content) Goals may be documented in a n alternate sectionGoals may be documented in an alternate sectionGoals may be documented in an alternate sectionGoals may be documented in an alternate section Source Comments (unrecognize d section and content) In the event this informatio n is protected by the Federal Confidentiality of Alcohol and Drug Abuse Patient Records regulations: The Federal rules restrict any use of the information to criminally investigate or prosecute any alcohol or drug abuse patient.[facility] Reason for Visit (unrecogniz ed section and content) Reason Comments Floaters Both Eyes Blurred Vision Both Eyes FOR RECORDS PERTAINING TO PATIENTS WHO ARE [...] BE BASED ON THE PRIMARY CLINICAL RECORDS. [facility]. provides no warranty or guarantee of the accuracy or completeness of information in this document.
[2025-07-26 11:18] LABS: Vitamin D,25 Hydroxy 44.2 ng/mL (30-100)
[2025-07-26 11:36] LABS: AST(SGOT) 22 U/L (<=37); Alanine Aminotransfer ALT/SGPT 19 U/L (<=46); Albumin, Serum 4.2 g/dL (3.4-4.8); Alkaline Phosphatase 115 U/L (40-129); Anion Gap 11 (5-15); BUN 15 mg/dL (4-19); BUN/Creat Ratio 17.5 RATIO (10-20); Calcium,Total 9.4 mg/dL (7.6-11.0); Carbon Dioxide 22.8 mmol/L (21.0-32.0); Chloride 105 mmol/L (98-108); Globulin 3.1 g/dL (2.2-4.2); Glucose 143 mg/dL (70-99); Potassium 4.0 mmol/L (3.3-5.1)
[2025-07-26 11:50] LABS: Cholesterol 132 mg/dL (<=200); Low Density Lipoprotein Calc. 61 mg/dL; Triglycerides 181 mg/dL; Very Low Density Lipoprotein 36 mg/dL (5-40); cholesterol:hdl ratio screen 3.78
== END | disposition home or self-care (01) ==
PROVIDERS: PCP Family Medicine Geriatric Medicine; Referring Provider Family Medicine Geriatric Medicine; Visit Provider Family Medicine Geriatric Medicine
DX: E78.5 Hyperlipidemia, unspecified (principal); I10 Essential (primary) hypertension; E03.9 Hypothyroidism, unspecified; E55.9 Vitamin D deficiency, unspecified
CPT/HCPCS: 36415; 80053; 80061; 82306; 84443; 85025